=== PATIENT | female | born 1960 | race Asian ===

== ENCOUNTER 2025-03-08 20:08 | Inpatient (IN) | payer MEDICAID ==
[~2025-03-08] VITALS: Ht 160 cm; Wt 61.7 kg
--- NOTE | 2025-03-08 20:28 | ED.PDOC ---
History of Present Illness HPI Comments 64 year old female BIBA and accompanied by presents to the ED with chief complaint of generalized weakness. reports that the patient has been experiencing generalized weakness with associated back pain from a previous herniated disk, left side numbness/weakness, and cough since today. relays that he was worried for a stroke so he called 911 for assistance. Patient denies any N/V/D, dizziness, headache, chest pain, SOB, or tingling. Chief Complaint: General Weakness Time Seen by MD: 20:24 Reviewed Notes: Nurses Notes, Social Media Developer Notes, Medications, Allergies Allergies: Coded Allergies: NO KNOWN ALLERGIES (Unverified , 03/08/25) Information Source: Patient, Emergency Med Personnel, Spouse Mode of Arrival: EMS Severity: Moderate Timing: Hours Duration: Since onset Prehospital treatment: None Past Medical History Past Medical History (Other): Chronic back pain Surgical History: Denies all surgeries CHEMICAL MANAGER History: Denies all CHEMICAL MANAGER Hx Family History Family History: Reviewed,noncontributory to illness Social History Smoker: Non-Smoker Alcohol: Denies ETOH Use Drugs: Denies Drug Use Lives In: Home Constitutional: reports: weakness; denies: chills, diaphoresis, fatigue, fever, malaise, sweats, others EENTM: denies: blurred vision, double vision, ear bleeding, ear discharge, ear drainage, ear pain, ear ringing, eye pain, eye redness, hearing loss, mouth pain, mouth swelling, nasal discharge, nose bleeding, nose congestion, nose pain, photophobia, tearing, throat pain, throat swelling, voice changes, others Respiratory: reports: cough; denies: hemoptysis, orthopnea, SOB at rest, shortness of breath, SOB with excertion, stridor, wheezing, others Cardiovascular: denies: chest pain, dizzy spells, diaphoresis, Dyspnea on exertion, edema, irregular heart beat, left arm pain, lightheadedness, palpitations, PND, syncope, others Gastrointestinal: denies: abdomen distended, abdominal pain, blood streaked bowels, constipated, diarrhea, dysphagia, difficulty swallowing, hematemesis, melena, nausea, poor appetite, poor fluid intake, rectal bleeding, rectal pain, vomiting, others Genitourinary: denies: abnormal vagina bleeding, burning, dyspareunia, dysuria, flank pain, frequency, hematuria, incontinence, pain, , vagina discharge, urgency, others Neurological: reports: left sided weakness; denies: dizziness, fainting, headache, left sided numbness, numbness, paresthesia, pre-existing deficit, right sided numbness, right sided weakness, seizure, speech problems, tingling, tremors, weakness, others Musculoskeletal: reports: back pain; denies: gout, joint pain, joint swelling, muscle pain, muscle stiffness, neck pain, others Integumetry: denies: bruises, change in color, change in hair/nails, dryness, laceration, lesions, lumps, rash, wounds, others Allergic/Immunocompromised: denies: Difficulty Healing, Frequent Infections, Hives, Itching, others Hematologic/Lymphatic: denies: anemia, blood clots, easy bleeding, easy bruising, swollen glands, others Endocrine: denies: excessive hunger, excessive sweating, excessive thirst, excessive urination, flushing, intolerance to cold, intolerance to heat, unexplained weight gain, unexplained weight loss, others Psychiatric: denies: anxiety, bipolar disorder, depression, hopeless, panic disorder, schizophrenia, sleepless, suicidal, others All Other Systems: Reviewed and Negative Physical Exam General Appearance: Moderate Distress, Normal HEENT: Normal ENT Inspection, PERRL/EOMI Neck: Full Range of Motion, Non-Tender, Normal, Normal Inspection Respiratory: Chest Non-Tender, Lungs Clear, No Accessory Muscle Use, No Respiratory Distress, Normal Breath Sounds Cardiovascular: No Edema, No JVD, No Murmur, No Gallop, Normal Peripheral Pulses, Regular Rate/Rhythm Breast Exam: Deferred Gastrointestinal: No Organomegaly, Non Tender, No Pulsatile Mass, Normal Bowel Sounds, Soft Genitalia: Deferred Pelvic: Deferred Rectal: Deferred Extremities: No calf tenderness, Normal capillary refill, Normal inspection, Normal range of motion, Non-tender, No pedal edema Musculoskeletal : Apperance: Normal Neurologic: Alert, administrative services director II-XII nml as Tested, No Motor Deficits, Normal Affect, Normal Mood, No Sensory Deficits Cerebellar Function: Normal Reflexes: Normal Skin: Dry, Normal Color, Warm Lymphatic: No Adenopathy Was a procedure done? Was a procedure done?: No Differential Dx Considerations may include: CT, cancer, GI obstruction, CVA, TIA X-Ray, Labs, Meds, VS Vital Signs Date Time Temp Pulse Resp B/P (MAP) Pulse Ox O2 Delivery O2 Flow Rate FiO2 03/08/25 23:03 75 24 150/87 03/08/25 21:15 98 03/08/25 20:11 98.6 74 16 136/82 (100) 96 98.6 Lab Test 03/08/25 23:25 03/08/25 22:00 03/08/25 21:29 03/08/25 20:36 Range/Units Troponin I High Sensitivity 191 *H 182 *H 202 *H </=34 ng/L POC Glucose 124 H 70-106 mg/dl White Blood Count 10.1 4.4-10.8 10^3/uL Red Blood Count 5.14 4.0-5.20 10^6/uL Hemoglobin 14.9 12.2-16.2 g/dL Hematocrit 44.4 36.0-46.0 % Mean Corpuscular Volume 86.4 80.0-100.0 fL Mean Corpuscular Hemoglobin 28.9 28.0-32.0 pg Mean Corpuscular Hemoglobin Concent 33.5 32.0-36.0 g/dL Red Cell Distribution Width 13.6 11.8-14.3 % Platelet Count 270 140-450 10^3/uL Mean Platelet Volume 6.9 6.9-10.8 fL Neutrophils (%) (Auto) 70.0 37.0-80.0 % Lymphocytes (%) (Auto) 10.8 10.0-50.0 % Monocytes (%) (Auto) 7.1 0.0-12.0 % Eosinophils (%) (Auto) 11.3 H 0.0-7.0 % Basophils (%) (Auto) 0.8 0.0-2.0 % Neutrophils # (Auto) 7.1 1.6-8.6 10 ^3/uL Lymphocytes # (Auto) 1.1 0.4-5.4 10 ^3/uL Monocytes # (Auto) 0.7 0-1.3 10 ^3/uL Eosinophils # (Auto) 1.1 H 0-0.8 10 ^3/uL Basophils # (Auto) 0.1 0-0.2 10 ^3/uL Nucleated Red Blood Cells 0.1 % Sodium Level 136 136-145 mmol/L Potassium Level 3.7 3.5-5.1 mmol/L Chloride Level 99 98-107 mmol/L Carbon Dioxide Level 29 20-31 mmol/L Anion Gap 8 5-15 Blood Urea Nitrogen 6 L 9-23 mg/dL Creatinine 0.49 L 0.550-1.02 mg/dL Glomerular Filtration Rate Calc 106 >90 mL/min BUN/Creatinine Ratio 12.2 10.0-20.0 Serum Glucose 106 74-106 mg/dL Calcium Level 9.7 8.7-10.4 mg/dL Total Bilirubin 1.1 H 0.2-1.0 mg/dL Aspartate Amino Transferase (AST) 96 H 13-40 U/L Alanine Aminotransferase (ALT) 134 H 7-40 U/L Alkaline Phosphatase 415 H 46-116 U/L Total Protein 6.9 5.7-8.2 g/dL Albumin 4.4 3.2-4.8 g/dL Current Medications Medications (Trade) Dose Ordered Sig/Pedro Route Start Time Stop Time Status Last Admin Ondansetron HCl (Zofran) 4 mg ONCE ONCE IV 03/08/25 23:00 03/08/25 23:01 DC 03/08/25 23:04 Morphine Sulfate 4 mg ONCE ONCE IV 03/08/25 23:00 03/08/25 23:01 DC 03/08/25 23:03 X-Ray, Labs, Meds, VS Comment CT abdomen and pelvis: IMPRESSION: 1. Masslike thickening of the mid to lower rectum with numerous perirectal nodules likely primary rectal neoplasm. 2. Hepatic Metastatic disease. 3. Retroperitoneal joana metastatic disease. 4. Innumerable bibasilar pulmonary nodular metastases. 5. Tiny nonobstructing right renal calculus. Explained to patient CT scan through translator/interpreter line. Patient will be admitted for further evaluation. Time of 1ST Reevaluation: 21:24 Reevaluation 1ST: Unchanged Patient Education/Counseling: Diagnosis, Treatment Family Education/Counseling: Diagnosis, Treatment Departure 1 Departure Time of Disposition: 00:57 Impression: Primary Impression: Metastatic neoplasm Disposition: ADMITTED INPATIENT Condition: Stable Discharged With: Self Critical Care Note Critical Care Time?: No Stability Stability form required: No Heart Score Heart Score: Heart Score Response (Comments) Value History N/A 0 EKG N/A 0 Age N/A 0 Risk Factors N/A 0 Troponin N/A 0 Total 0 I personally scribed for CRIS ARANDA ([email or web address]) on 03/08/25 at 20:27. Electronically submitted by Dave Mai ([email or web address]). CRIS ARANDA Mar 08, 2025 20:27
[2025-03-08 20:46] LABS: Basophils # (auto) 0.1 10 ^3/uL (0-0.2); Basophils % (auto) 0.8 % (0.0-2.0); Eosinophils # (auto) 1.1 10 ^3/uL (0-0.8); Eosinophils % (auto) 11.3 % (0.0-7.0); Hematocrit 44.4 % (36.0-46.0); Hemoglobin 14.9 g/dL (12.2-16.2); Lymphocytes # (auto) 1.1 10 ^3/uL (0.4-5.4); Lymphocytes % (auto) 10.8 % (10.0-50.0); Mean Corpuscular Hemoglobin 28.9 pg (28.0-32.0); Mean Corpuscular Hgb Conc. 33.5 g/dL (32.0-36.0); Mean Corpuscular Volume 86.4 fL (80.0-100.0); Monocytes # (auto) 0.7 10 ^3/uL (0-1.3); Monocytes % (auto) 7.1 % (0.0-12.0); Neutrophils # (auto) 7.1 10 ^3/uL (1.6-8.6); Nucleated Red Blood Cells % 0.1 %; Platelet Count (auto) 270 10^3/uL (140-450); Red Blood Cells 5.14 10^6/uL (4.0-5.20); Red Cell Distribution Width 13.6 % (11.8-14.3); White Blood Cell 10.1 10^3/uL (4.4-10.8)
[2025-03-08 21:05] LABS: Albumin 4.4 g/dL (3.2-4.8); Anion Gap 8 (5-15); BUN/Creatinine Ratio 12.2 (10.0-20.0); Calcium 9.7 mg/dL (8.7-10.4); Carbon Dioxide 29 mmol/L (20-31); Chloride 99 mmol/L (98-107); Potassium 3.7 mmol/L (3.5-5.1); Sodium 136 mmol/L (136-145); Total Protein 6.9 g/dL (5.7-8.2)
[2025-03-08 21:06] LABS: Bilirubin, Total 1.1 mg/dL (0.2-1.0)
[2025-03-08 21:07] LABS: Alanine Aminotransferase 134 U/L (7-40); Alkaline Phosphatase 415 U/L (46-116); Aspartate Aminotransferase 96 U/L (13-40); Blood Urea Nitrogen 6 mg/dL (9-23); Glucose 106 mg/dL (74-106)
[2025-03-08 21:52] VITALS: PULSE 90; RESP 90; O2SAT 89
--- NOTE | 2025-03-08 22:31 | DVH ---
CHEST RADIOGRAPH Indication: SOB Technique: Single frontal view of the chest was obtained Comparison: lung windows from prior CT abdominal study of today's date FINDINGS: There is a borderline heart size and ill-defined reticular nodular infiltrates in both lungs which is confirmed by the lung windows from prior abdominal CT study of today's date where there are multiple ill-defined nodules in the lungs. IMPRESSION: 1. Cardiomegaly and multiple ill-defined nodules appear to be nearly evenly distributed in the lungs. Imaging is required I would recommend CT examination of the chest but the findings are clearly seen in the recent abdominal study the lung windows
--- NOTE | 2025-03-08 22:31 | DVH ---
CT HEAD WITHOUT CONTRAST INDICATION: ALOC COMPARISON: None TECHNIQUE: CT of the head without intravenous contrast. RADIATION DOSE: CTDIvol: 7.16 mGy, DLP: 1895.31 mGy*cm FINDINGS: There is no evidence of intracranial hemorrhage, infarct, extra-axial collection, mass effect, midli ne shift, herniation or hydrocephalus. The ventricles, sulci and cisterns are normal. The oconnor-white differentiation is normal. Visualized paranasal sinuses and mastoid air cells are clear. Soft tissues and osseous structures are unremarkable. IMPRESSION: No intracranial abnormality identified.
[2025-03-08] MEDS: MORPHINE SULFATE 4 MG/ML SYR/VIAL IV ONE (23:03)
[2025-03-08] MEDS: ONDANSETRON HCL 4 MG/2 ML VIAL IV ONE (23:04)
--- NOTE | 2025-03-09 00:12 | DVH ---
CLINICAL HISTORY: abd pain TECHNIQUE: CT of the abdomen and pelvis was performed without intravenous contrast. This exam was per formed according to our departmental dose optimization program. Up-to-date CT equipment and radiation dose reduction techniques are utilized as appropriate. CTDI: DLP: 1895. WID: COMPARISON: None FINDINGS: Lower Thorax: Upper limits of normal-sized heart. Innumerable bibasilar pulmonary nodules. Liver and Biliary system: Normal-sized liver. There are multiple hypodense by lateral hepatic lesion s. A reference mass in segment 2/3 of the liver measures 4 cm in conglomerate on series 9, image 24. The gallbladder is normal caliber. There is no biliary ductal dilatation. Spleen: Unremarkable. Adrenal Glands and Kidneys: Normal adrenal glands. There is no hydronephrosis or left nephrolithiasis . Tiny nonobstructing right renal calculus. Pancreas and Retroperitoneum: Mild atrophy of the pancreas. There is retroperitoneal lymphadenopathy. Aorta and Major Vessels: Aortoiliac vessels are normal in caliber with mild calcified atherosclerotic plaque. Bowel, Mesentery and Peritoneal space: There is masslike thickening of the mid to lower rectum with m ultiple perirectal nodules. Perirectal soft tissue stranding. The small and large bowel loops are nor mal in caliber. Normal appendix. There is no free intraperitoneal air or loculated fluid collection. Pelvis: Urinary bladder is mildly distended with mild wall thickening. The uterus and ovaries are pr esent. Abdominal wall and Osseous Structures: Straightening of the lumbar lordosis. No destructive osseous l esion. IMPRESSION: 1. Masslike thickening of the mid to lower rectum with numerous perirectal nodules likely primary rec mirza neoplasm. 2. Hepatic Metastatic disease. 3. Retroperitoneal joana metastatic disease. 4. Innumerable bibasilar pulmonary nodular metastases. 5. Tiny nonobstructing right renal calculus.
[2025-03-09] MEDS: SODIUM CHLORIDE 0.9% 1,000 ML IV ONE (01:09)
[2025-03-09] MEDS: HYDROmorphone HCL 2 MG/ML VL/or syr IV ONE ×2 (01:56→05:47)
[2025-03-09 08:00] VITALS: PULSE 72; RESP 21; O2SAT 98
[2025-03-09 08:11] LABS: Urine Bacteria None Seen /hpf (None Seen)
[2025-03-09 08:25] LABS: Urine Blood Negative /uL (Negative); Urine Clarity Turbid (Clear); Urine Color Yellow (Yellow); Urine Hyaline Cast FEW /lpf (0 - 2); Urine Mucus FEW (None Seen); Urine Protein, UAD TRACE (Negative); Urine Specific Gravity 1.017 (1.001-1.035); Urine Squamous Epithelial Cell None Seen /hpf (<5); Urine Urobilinogen 2 mg/dL (Negative); Urine WBC 2 /HPF (0-5)
[2025-03-09] MEDS: ACETAMINOPHEN 325 MG TAB PO ONE (09:57)
--- NOTE | 2025-03-09 10:55 | DVHHP2 ---
Admitting Diagnosis: Generalized weakness History of Present Illness Patient is a 64-year-old female, BIBA , and with her with a chief complaint of generalized weakness. reports that starting today patient has been experiencing generalized weakness with associated back pain from previous herniated disc, left-sided weakness/numbness, and a cough. states he called 911 for assistance because he was worried for a stroke. Patient denies any tingling, shortness of breath, chest pain, headache, dizziness, N/V/D. While in the emergency department the patient was evaluated by the provider, As per provider: Labs, vital signs, and imagining monitored. Patient will be admitted for further evaluation and treatment. I discussed admission with the patient/family and is in agreement to treatment plan Allergies: Coded Allergies: NO KNOWN ALLERGIES (Unverified , 03/08/25) Current Medications Current Medications Medications (Trade) Dose Ordered Sig/Pedro Route PRN Reason Start Time Stop Time Status Last Admin Sodium Chloride 1,000 ml @ 60 mls/hr [id number] IV 03/09/25 11:00 03/09/25 11:30 Acetaminophen/ Hydrocodone Bitart ([place] 5/325MG Tab) 1 tab Q4HP PRN PO MODERATE PAIN (4-6 PAIN SCALE) 03/09/25 11:00 03/09/25 17:59 Ondansetron HCl (Zofran) 4 mg Q4HP PRN IV NAUSEA / VOMITING 03/09/25 11:00 Morphine Sulfate 2 mg Q4HPRN PRN IV SEVERE PAIN (7-10 PAIN SCALE) 03/09/25 11:00 Pantoprazole Sodium (Protonix) 40 mg DAILY IV 03/10/25 10:00 Diphenhydramine HCl (Benadryl Injection) 25 mg Q4HP PRN IV FOR ITCHING 03/09/25 17:00 03/09/25 17:01 Review of Systems Constitutional: denies chills, denies fever, denies malaise Eyes: denies eye pain, denies vision change ENT: denies ear pain, denies headache, denies nasal congestion, denies painful swallowing, denies voice change Cardiovascular: denies chest pain, denies edema, denies orthopnea, denies palpitations, denies paroxysmal nocturnal dyspnea Respiratory: denies cough, denies shortness of breath Gastrointestinal: denies constipation, denies diarrhea, denies nausea, denies vomiting Genitourinary: denies dysuria, denies frequent urination, denies urethral discharge Musculoskeletal: denies back pain, denies joint pain, denies muscle pain Skin: denies bruising, denies itching, denies rash Neurological: denies focal weakness, denies headache, denies sensory changes Psychiatric: denies anxiety, denies depression Endocrine: denies polydipsia, denies polyuria Hematologic/Lymphatic: denies easy bleeding, denies easy bruising, denies enlarged lymph nodes Allergic/Immunologic: denies allergy, denies hives Vital Signs Vital Signs Date Time Temp Pulse Resp B/P (MAP) Pulse Ox O2 Delivery O2 Flow Rate FiO2 03/09/25 19:44 85 22 97 Nasal Cannula* 2 28 03/09/25 19:44 98.5 117/78 (91) 98.5 Physical Exam General Appearance: alert, no distress HEENT: EOMI, PERRLA, normal external inspect of ears, no icterus, no nasal drainage Neck: no carotid bruit, no jugular venous distention (JVD), no lymphadenopathy Chest: normal thorax Respiratory: clear to auscultation, normal air movement Cardiovascular: regular rate and rhythm, no diastolic murmur, no jugular venous distention (JVD), no rub, no systolic murmur Abdominal: soft, no hepatomegaly, no mass, no splenomegaly, no tenderness Genitourinary: grossly normal external Musculoskeletal: no joint tenderness, no swelling Extremities: normal pulses, no calf tenderness, no clubbing, no cyanosis, no edema Skin: no bruising, no jaundice, no rash Neurological: alert, No focal deficit Results Labs Test 03/09/25 13:03 03/09/25 11:04 03/09/25 08:00 03/08/25 23:25 Range/Units Prothrombin Time 11.4 9.3-11.8 sec Prothrombin Time INR 1.08 0.9-1.15 Activated Partial Thromboplast Time 29.1 24.5-34.5 SEC Carcinoembryonic Antigen 9.04 <=5.0 ng/mL Hepatitis A Antibody Total Positive H Negative Hepatitis B Surface Antigen Negative Negative Hepatitis B Surface Antibody Positive H Negative Hepatitis B Core Total Antibody Negative Negative Hepatitis C Antibody Negative Negative Urine Color Yellow Yellow Urine Clarity Turbid H Clear Urine pH 6.0 5.0-9.0 Urine Specific [place] 1.017 1.001-1.035 Urine Protein Trace H Negative Urine Ketones 3+ H Negative Urine Blood Negative Negative /uL Urine Nitrite Negative Negative Urine Bilirubin Negative Negative Urine Urobilinogen 2 H Negative mg/dL Urine Leukocyte Esterase Negative Negative /uL Urine RBC 5 0 - 4 /hpf Urine Microscopic WBC 2 0-5 /HPF Urine Squamous Epithelial Cells None seen <5 /hpf Urine Bacteria None seen None Seen /hpf Urine Hyaline Casts Few 0 - 2 /lpf Urine Mucus Few None Seen Urine Glucose Normal Normal mg/dL Troponin I High Sensitivity 191 *H </=34 ng/L Test 03/08/25 22:00 03/08/25 20:36 Range/Units POC Glucose 124 H 70-106 mg/dl White Blood Count 10.1 4.4-10.8 10^3/uL Red Blood Count 5.14 4.0-5.20 10^6/uL Hemoglobin 14.9 12.2-16.2 g/dL Hematocrit 44.4 36.0-46.0 % Mean Corpuscular Volume 86.4 80.0-100.0 fL Mean Corpuscular Hemoglobin 28.9 28.0-32.0 pg Mean Corpuscular Hemoglobin Concent 33.5 32.0-36.0 g/dL Red Cell Distribution Width 13.6 11.8-14.3 % Platelet Count 270 140-450 10^3/uL Mean Platelet Volume 6.9 6.9-10.8 fL Neutrophils (%) (Auto) 70.0 37.0-80.0 % Lymphocytes (%) (Auto) 10.8 10.0-50.0 % Monocytes (%) (Auto) 7.1 0.0-12.0 % Eosinophils (%) (Auto) 11.3 H 0.0-7.0 % Basophils (%) (Auto) 0.8 0.0-2.0 % Neutrophils # (Auto) 7.1 1.6-8.6 10 ^3/uL Lymphocytes # (Auto) 1.1 0.4-5.4 10 ^3/uL Monocytes # (Auto) 0.7 0-1.3 10 ^3/uL Eosinophils # (Auto) 1.1 H 0-0.8 10 ^3/uL Basophils # (Auto) 0.1 0-0.2 10 ^3/uL Nucleated Red Blood Cells 0.1 % Sodium Level 136 136-145 mmol/L Potassium Level 3.7 3.5-5.1 mmol/L Chloride Level 99 98-107 mmol/L Carbon Dioxide Level 29 20-31 mmol/L Anion Gap 8 5-15 Blood Urea Nitrogen 6 L 9-23 mg/dL Creatinine 0.49 L 0.550-1.02 mg/dL Glomerular Filtration Rate Calc 106 >90 mL/min BUN/Creatinine Ratio 12.2 10.0-20.0 Serum Glucose 106 74-106 mg/dL Calcium Level 9.7 8.7-10.4 mg/dL Total Bilirubin 1.1 H 0.2-1.0 mg/dL Aspartate Amino Transferase (AST) 96 H 13-40 U/L Alanine Aminotransferase (ALT) 134 H 7-40 U/L Alkaline Phosphatase 415 H 46-116 U/L Total Protein 6.9 5.7-8.2 g/dL Albumin 4.4 3.2-4.8 g/dL Plan 1. Intractable back pain Monitor, as needed pain meds 2. Hepatic metastatic disease Monitor, oncology consult, GI consult 3. Pulmonary Masses Monitor, tumor marker labs 4. Elevated troponin Monitor, cardiology consult, PPI, monitor EKG 5. Elevated liver enzymes Monitor, radiology consult for liver biopsy Plan discussed with: Patient, Other JUDY JACK NP Mar 09, 2025 10:55
[2025-03-09] MEDS: SODIUM CHLORIDE 0.9% 1,000 ML IV SCH (11:30)
--- NOTE | 2025-03-09 11:54 | DVH ---
Procedure: CT CHEST WITHOUT CONTRAST Reason for study/Clinical History: r/o malig Comparison Study: None available at time of dictation. Exam Date: 03/09/2025 11:17 AM TECHNIQUE: Multidetector CT of the chest was performed from the lung apices to the upper abdomen with out the use of intravenous contract. Axial, coronal and sagittal multiplanar reformats were performed . Radiation Dose Information: CT Dose: CTDI volume is 4.56 mGy. Dose-length product is 159.8 mGy*cm The dose indicators for CT are the volume Computed Tomography (CT) Dose Index (CTDIvol) and the Dose Length Product (DLP), and are measured in units of mGy and mGy-cm, respectively. These indicators are not patient dose, but values generated from the CT scanner acquisition factors. The report includes radiation exposure data for exposures received during this examination. FINDINGS: Lower neck: Normal thyroid. Lungs: Numerous nodular densities are seen throughout both lungs suggestive of metastatic disease. Th e largest nodule measures approximately 1.2 cm in the right middle lobe. There is also probable super imposed pneumonia bilaterally. Heart/Vascular Structures: Normal heart size. No pericardial effusion. Lymph Nodes: Mediastinal lymphadenopathy, likely reactive. Pleura: No pleural effusion or significant pneumothorax. Musculoskeletal: No acute osseous abnormality. Soft tissues: Normal. Upper abdomen: Numerous hypodense masses are seen throughout the liver. IMPRESSION: 1. Numerous nodular densities are seen throughout both lungs suggestive of metastatic disease. The la rgest nodule measures approximately 1.2 cm in the right middle lobe. There is also probable superimpo sed pneumonia bilaterally. 2. Mediastinal lymphadenopathy 3. Numerous hypodense masses are also seen throughout the liver Radiation optimization: All CT scans at this facility use at least one of these dose optimization charlee hniques: automated exposure control mA and/or kV adjustment per patient size (includes targeted exam s where dose is matched to clinical indication) or iterative reconstruction.
--- NOTE | 2025-03-09 12:48 | ECG ---
[facility] Test Date: 2025-03-08 Test Time: 21:15:23 Pat Name: SERENE GRIFFIN Department: ED Room: [facility] Gender: F Team Leader/Research Psychologist: ED : 1960 Requested By: CRIS ARANDA Order Number: [id number] Reading MD: Armen Tracey Measurements Intervals [place] Rate: 98 P: 42 NV: 150 QRS: 7 QRSD: 90 T: 10 QT: 364 QTc: 465 Interpretive Statements Sinus rhythm Borderline T abnormalities, anterior leads Electronically Signed On 03-10-2025 20:51:10 PDT by Armen Tracey Please click the below link to view image of tracing.
--- NOTE | 2025-03-09 12:50 | DVHINCON2 ---
GI Consult Consult Note GI consult note Date of Consultation: 03/09/2025 Chief Complaint: Hepatic metastatic disease, new finding Referring Physician: GUERO MARTELL H&P: 64-year-old female with past medical history of chronic back pain presented to ER with generalized weakness. Son at bedside translating Patient has generalized abdominal pain for one month. No nausea or vomiting. But patient had feeling of gas and bloating and felt like of food was not gettin g digest. Patient also has hard stool about 10 times a day, for the last one month also. Patient has noticed red blood with a bowel movement in the last 10 days. No history of melena. No colonoscopy in past Patient has lost 10 lb in two weeks Patient complaining of palpitations. No chest pain Patient complaining of slurry speech after getting pain medications in ER Past Medical History: Chronic back pain Past Surgical History: Denies Social History: NO smoking, drinking ETOH and use of illegal drugs. Family History: Noncontributory Review of Systems: Constitutional: no fever, chill, weight loss HEENT: no eye pain, no hearing loss, no oral lesion, no scleral icterus Heart: no chest pain, no chest pressure Lung: + cough Abdomen: see HPI : no pain with urination, normal appearing urine Musculoskeletal: Back pain Physical exam: General: NAD, AAOX3 Chest: lung walsh clear to auscultation Heart: RRR, no murmur Abdomen: non-distended, mild generalized tenderness to palpation, +BS Labs: Labs Test 03/09/25 11:04 03/09/25 08:00 03/08/25 23:25 03/08/25 22:00 Range/Units Carcinoembryonic Antigen 9.04 <=5.0 ng/mL Urine Color Yellow Yellow Urine Clarity Turbid H Clear Urine pH 6.0 5.0-9.0 Urine Specific [place] 1.017 1.001-1.035 Urine Protein Trace H Negative Urine Ketones 3+ H Negative Urine Blood Negative Negative /uL Urine Nitrite Negative Negative Urine Bilirubin Negative Negative Urine Urobilinogen 2 H Negative mg/dL Urine Leukocyte Esterase Negative Negative /uL Urine RBC 5 0 - 4 /hpf Urine Microscopic WBC 2 0-5 /HPF Urine Squamous Epithelial Cells None seen <5 /hpf Urine Bacteria None seen None Seen /hpf Urine Hyaline Casts Few 0 - 2 /lpf Urine Mucus Few None Seen Urine Glucose Normal Normal mg/dL Troponin I High Sensitivity 191 *H </=34 ng/L POC Glucose 124 H 70-106 mg/dl Test 03/08/25 20:36 Range/Units White Blood Count 10.1 4.4-10.8 10^3/uL Red Blood Count 5.14 4.0-5.20 10^6/uL Hemoglobin 14.9 12.2-16.2 g/dL Hematocrit 44.4 36.0-46.0 % Mean Corpuscular Volume 86.4 80.0-100.0 fL Mean Corpuscular Hemoglobin 28.9 28.0-32.0 pg Mean Corpuscular Hemoglobin Concent 33.5 32.0-36.0 g/dL Red Cell Distribution Width 13.6 11.8-14.3 % Platelet Count 270 140-450 10^3/uL Mean Platelet Volume 6.9 6.9-10.8 fL Neutrophils (%) (Auto) 70.0 37.0-80.0 % Lymphocytes (%) (Auto) 10.8 10.0-50.0 % Monocytes (%) (Auto) 7.1 0.0-12.0 % Eosinophils (%) (Auto) 11.3 H 0.0-7.0 % Basophils (%) (Auto) 0.8 0.0-2.0 % Neutrophils # (Auto) 7.1 1.6-8.6 10 ^3/uL Lymphocytes # (Auto) 1.1 0.4-5.4 10 ^3/uL Monocytes # (Auto) 0.7 0-1.3 10 ^3/uL Eosinophils # (Auto) 1.1 H 0-0.8 10 ^3/uL Basophils # (Auto) 0.1 0-0.2 10 ^3/uL Nucleated Red Blood Cells 0.1 % Sodium Level 136 136-145 mmol/L Potassium Level 3.7 3.5-5.1 mmol/L Chloride Level 99 98-107 mmol/L Carbon Dioxide Level 29 20-31 mmol/L Anion Gap 8 5-15 Blood Urea Nitrogen 6 L 9-23 mg/dL Creatinine 0.49 L 0.550-1.02 mg/dL Glomerular Filtration Rate Calc 106 >90 mL/min BUN/Creatinine Ratio 12.2 10.0-20.0 Serum Glucose 106 74-106 mg/dL Calcium Level 9.7 8.7-10.4 mg/dL Total Bilirubin 1.1 H 0.2-1.0 mg/dL Aspartate Amino Transferase (AST) 96 H 13-40 U/L Alanine Aminotransferase (ALT) 134 H 7-40 U/L Alkaline Phosphatase 415 H 46-116 U/L Total Protein 6.9 5.7-8.2 g/dL Albumin 4.4 3.2-4.8 g/dL Imaging: Abdomen pelvis CT IMPRESSION: 1. Masslike thickening of the mid to lower rectum with numerous perirectal nodules likely primary rectal neoplasm. 2. Hepatic Metastatic disease. 3. Retroperitoneal joana metastatic disease. 4. Innumerable bibasilar pulmonary nodular metastases. 5. Tiny nonobstructing right renal calculus. Assessment: Possible rectal mass Abdominal pain Possible metastatic neoplasm Plan: -discussed with Dr. Leigh CEA, AFP, CA 19-9. Hepatitis tubing oiler labs Full liquid diet Cardiology consult pending Possible plan for sigmoidoscopy on Friday if patient is cleared by Cardiology Plan discussed with patient, at bed and son Thank you for this consult Date of Service: Mar 09, 2025 Billing Provider: AGNIESZKA KUNZ Common Visit Codes: CONSULT ONLY Consultation Codes: [id number] CONSULT <60MIN AGNIESZKA KUNZ Mar 09, 2025 12:50
[2025-03-09 13:35] LABS: INR 1.08 (0.9-1.15); Partial Thromboplastin Time 29.1 SEC (24.5-34.5); Prothrombin Time 11.4 sec (9.3-11.8)
--- NOTE | 2025-03-09 15:32 | DVH ---
INDICATION: EVALUATION OF LIVER MASSES POSSIBLE LIVER BIOPSY TECHNIQUE: Multiple real-time sonographic images of the abdomen were obtained. COMPARISON: None FINDINGS: Heterogeneous echotexture of the liver. Numerous hepatic masses measuring up to 4 cm in th e left hepatic lobe.. The liver measures 14cm. No intrahepatic biliary ductal dilatation is noted. The gallbladder wall measures 0.2 cm and is unremarkable. No gallstones or sludge is seen. The commo n duct measures 0.4 cm and is unremarkable. No pericholecystic fluid is noted. The right kidney measures 10cm. No hydronephrosis. T The pancreas is not well visualized due to obscuration from bowel gas. The visualized portions of the IVC and aorta are grossly unremarkable. IMPRESSION: Numerous hepatic masses measuring up to 4 cm in the left hepatic lobe.
[2025-03-09 16:33] LABS: Hepatitis B Core Total AB Negative (Negative)
[2025-03-09 16:49] LABS: Hepatitis A Total Antibody Positive (Negative); Hepatitis B Surface Antibody Positive (Negative); Hepatitis B Surface Antigen Negative (Negative)
[2025-03-09 16:50] LABS: Hepatitis C Antibody Negative (Negative)
[2025-03-09] MEDS: diphenhdrAMINE HCL 50 MG/1 ML VL IV PRN (17:01)
--- NOTE | 2025-03-09 17:08 | DVHSR ---
APPROVED REPORT EXAM: Two-dimensional and M-mode echocardiogram with Doppler and color Doppler. Blood Pressure: 133/77 mmHg INDICATION Eval RISK FACTORS Height: 5' 6", Weight: 140 DIMENSIONS LVDd4.1 (3.8-5.7cm)LA (2D)3.3 (1.9-4.0cm)Aortic Root3.2 (2.0-3.7cm) LVDs2.3 (2.5-4.0cm)LA (MM) (1.9-4.0cm)Aortic Cusp Exc1.7 (1.5-2.0cm) EF (%) 75.0 (55-70%)Rt. Atrium2.8 (1.9-4.0cm)Asc. Aorta cm IVSd0.9 (0.7-1.1cm)RV (D) (1.8-2.4cm) PWd0.9 (0.7-1.1cm) Mitral Valve MitralMitral Stenosis E wave1.00m/sMV Mean GR.mmHg A wave0.90m/sMV Peak GR.mmHg E/A ratio1.12D MVAcm2 Aortic Valve Aortic ValveAortic Stenosis V11.60m/Burt Mean GR.6mmHg V21.70m/Burt Peak GR.11mmHg LVOT Diameter1.9 (1.8-2.4cm)Doppler AVA2.67cm2 Pulmonic Valve V20.80m/s Tricuspid Valve TR Velocity2.50m/s [id number] Conclusion Left ventricle: Left ventricle is normal-sized. Left ventricular systolic function was hyperdynamic. LVEF was around 75%. There was no gross wall motion abnormality. Right ventricle was normal-sized with normal systolic function. Both atria were normal-sized. Aortic valve was trileaflet. There was no aortic stenosis. There was mild aortic insufficiency. Th ere was trace mitral/tricuspid regurgitation. There was trace/physiologic pulmonary valve insufficie ncy. Right ventricular systolic pressure was assessed at 28 mm Hg (normal). There was no pericardial effu aj.
[2025-03-09] MEDS: HYDROcodone-ACET 5/325MG TAB PO PRN (17:59)
--- NOTE | 2025-03-09 18:28 | DVHINCON2 ---
Date of service: Mar 09, 2025 History of Present Illness HPI Patient is a 64-year-old Bengali female who presented with few weeks of generalized weakness/low back pain and change in bowel habitus. She speaks Bengali. Information was obtained by the help of the son who is at bedside. Since arrival to the hospital, the patient was found to have possible metastatic disease. GI is planning to go proceed with endoscopy and requested for cardiac risk stratification prior to endoscopy. Patient was also found to have minimally elevated/flat troponin. Cardiology was involved for above and cardiac aspects of care. Patient denies any chest pains. For the past few weeks, the patient has been experiencing lower back pain (more than usual), dry cough, generalized weakness and change in bowel habitus. Denies chest pains. Denies loss of consciousness. Denies palpitations. Denies orthopnea. Denies PND. There is some question about some bloody stool in the past 10 days. For the past few days did have some slurred speech also. Denies previous cardiac history. Baseline functional capacity prior to the past few weeks was good. Past Medical History Others Past medical history includes lower back pain, chronic Family History: Cancer Smoker: No Hx (Negative) Alocohol: None Drugs: None Lives with: With family Review of Systems Constitutional: Malaise, Weakness Ears, Nose, & Throat: No symptom reported Pulmonary/Respiratory: Cough (dry) Gastrointestinal: Abdominal Pain All Other Systems Fourteen point review of system was performed. Relevant findings as per above and as per HPI. Otherwise negative. H&P Exam Vital Signs Vital Signs Date Time Temp Pulse Resp B/P (MAP) Pulse Ox O2 Delivery O2 Flow Rate FiO2 03/09/25 17:00 82 28 136/83 (100) 97 03/09/25 11:15 98.9 98.9 03/09/25 08:00 Nasal Cannula* 2 28 General Appeara: Well developed Head Exam: Normal inspection Eye Exam: bilateral eye PERRL Mouth: Normal Inspection Pulmonary/Respiratory: Rhonci Cardiovascular/Chest: Regular rate Peripheral Pulses: 2+ carotid (R), 2+ carotid (L), 2+ femoral (R), 2+ femoral (L), 2+ dorsalis pedis (R), 2+ dorsalis pedis (L), 2+ Radial (R), 2+ Radial (L), 2+ Brachial (R), 2+ Brachial (L) Abdominal Exam: Normal bowel sounds Neuro/Mental St: Alert, Oriented Appearance: Appropriate appearance Eye contact/ Speech: Cooperative Labs/Xrays Labs Test 03/09/25 13:03 03/09/25 11:04 03/09/25 08:00 03/08/25 23:25 Range/Units Prothrombin Time 11.4 9.3-11.8 sec Prothrombin Time INR 1.08 0.9-1.15 Activated Partial Thromboplast Time 29.1 24.5-34.5 SEC Carcinoembryonic Antigen 9.04 <=5.0 ng/mL Hepatitis A Antibody Total Positive H Negative Hepatitis B Surface Antigen Negative Negative Hepatitis B Surface Antibody Positive H Negative Hepatitis B Core Total Antibody Negative Negative Hepatitis C Antibody Negative Negative Urine Color Yellow Yellow Urine Clarity Turbid H Clear Urine pH 6.0 5.0-9.0 Urine Specific [place] 1.017 1.001-1.035 Urine Protein Trace H Negative Urine Ketones 3+ H Negative Urine Blood Negative Negative /uL Urine Nitrite Negative Negative Urine Bilirubin Negative Negative Urine Urobilinogen 2 H Negative mg/dL Urine Leukocyte Esterase Negative Negative /uL Urine RBC 5 0 - 4 /hpf Urine Microscopic WBC 2 0-5 /HPF Urine Squamous Epithelial Cells None seen <5 /hpf Urine Bacteria None seen None Seen /hpf Urine Hyaline Casts Few 0 - 2 /lpf Urine Mucus Few None Seen Urine Glucose Normal Normal mg/dL Troponin I High Sensitivity 191 *H </=34 ng/L Test 03/08/25 22:00 03/08/25 20:36 Range/Units POC Glucose 124 H 70-106 mg/dl White Blood Count 10.1 4.4-10.8 10^3/uL Red Blood Count 5.14 4.0-5.20 10^6/uL Hemoglobin 14.9 12.2-16.2 g/dL Hematocrit 44.4 36.0-46.0 % Mean Corpuscular Volume 86.4 80.0-100.0 fL Mean Corpuscular Hemoglobin 28.9 28.0-32.0 pg Mean Corpuscular Hemoglobin Concent 33.5 32.0-36.0 g/dL Red Cell Distribution Width 13.6 11.8-14.3 % Platelet Count 270 140-450 10^3/uL Mean Platelet Volume 6.9 6.9-10.8 fL Neutrophils (%) (Auto) 70.0 37.0-80.0 % Lymphocytes (%) (Auto) 10.8 10.0-50.0 % Monocytes (%) (Auto) 7.1 0.0-12.0 % Eosinophils (%) (Auto) 11.3 H 0.0-7.0 % Basophils (%) (Auto) 0.8 0.0-2.0 % Neutrophils # (Auto) 7.1 1.6-8.6 10 ^3/uL Lymphocytes # (Auto) 1.1 0.4-5.4 10 ^3/uL Monocytes # (Auto) 0.7 0-1.3 10 ^3/uL Eosinophils # (Auto) 1.1 H 0-0.8 10 ^3/uL Basophils # (Auto) 0.1 0-0.2 10 ^3/uL Nucleated Red Blood Cells 0.1 % Sodium Level 136 136-145 mmol/L Potassium Level 3.7 3.5-5.1 mmol/L Chloride Level 99 98-107 mmol/L Carbon Dioxide Level 29 20-31 mmol/L Anion Gap 8 5-15 Blood Urea Nitrogen 6 L 9-23 mg/dL Creatinine 0.49 L 0.550-1.02 mg/dL Glomerular Filtration Rate Calc 106 >90 mL/min BUN/Creatinine Ratio 12.2 10.0-20.0 Serum Glucose 106 74-106 mg/dL Calcium Level 9.7 8.7-10.4 mg/dL Total Bilirubin 1.1 H 0.2-1.0 mg/dL Aspartate Amino Transferase (AST) 96 H 13-40 U/L Alanine Aminotransferase (ALT) 134 H 7-40 U/L Alkaline Phosphatase 415 H 46-116 U/L Total Protein 6.9 5.7-8.2 g/dL Albumin 4.4 3.2-4.8 g/dL Assessment/Plan Plan Patient is a 64-year-old Bengali female who presented with few weeks of generalized weakness/low back pain and change in bowel habitus. She speaks [place]. Information was obtained by the help of the son who is at bedside. Since arrival to the hospital, the patient was found to have possible metastatic disease. GI is planning to go proceed with endoscopy and requested for cardiac risk stratification prior to endoscopy. Patient was also found to have minimally elevated/flat troponin. Cardiology was involved for above and cardiac aspects of care. Patient denies any chest pains. For the past few weeks, the patient has been experiencing lower back pain (more than usual), dry cough, generalized weakness and change in bowel habitus. Denies chest pains. Denies loss of consciousness. Denies palpitations. Denies orthopnea. Denies PND. There is some question about some bloody stool in the past 10 days. For the past few days did have some slurred speech also. Denies previous cardiac history. Baseline functional capacity prior to the past few weeks was good. Lying flat in bed. Not in acute distress. No JVD. Mucosa is pink and wet. No carotid bruit. No goiter. Scattered rhonchi in the lungs is heard. No crackles. Not using accessory muscles of breathing. Cardiac: Regular, no thrill/gallop. Abdomen is soft. Bowel sound is positive. Mild generalized tenderness is elicited. There is no rebound tenderness. There is no peripheral edema. Dorsalis pedis is 2+ bilateral. Past medical history includes lower back pain, chronic Family history includes several family members with different kind of cancers. Does not smoke cigarettes. No substance abuse. No alcohol abuse. Hemoglobin: 14.9 Creatinine: 0.49 Potassium: 3.7 AST/ALT: 96/134 Troponin (high sensitive): 202 - 182 - 191 Chest x-ray revealed: 1. Cardiomegaly and multiple ill-defined nodules appear to be nearly evenly distributed in the lungs. Imaging is required I would recommend CT examination of the chest but the findings are clearly seen in the recent abdominal study the lung windows CT of the chest revealed: IMPRESSION: 1. Numerous nodular densities are seen throughout both lungs suggestive of metastatic disease. The largest nodule measures approximately 1.2 cm in the right middle lobe. There is also probable superimposed pneumonia bilaterally. 2. Mediastinal lymphadenopathy 3. Numerous hypodense masses are also seen throughout the liver CT of the abdomen and pelvis revealed: IMPRESSION: 1. Masslike thickening of the mid to lower rectum with numerous perirectal nodules likely primary rectal neoplasm. 2. Hepatic Metastatic disease. 3. Retroperitoneal joana metastatic disease. 4. Innumerable bibasilar pulmonary nodular metastases. 5. Tiny nonobstructing right renal calculus. CT of the head revealed: IMPRESSION: No intracranial abnormality identified. Liver ultrasound revealed: IMPRESSION: Numerous hepatic masses measuring up to 4 cm in the left hepatic lobe. EKG revealed sinus rhythm with nonspecific T-wave changes Tele reveals sinus rhythm Echocardiogram reported: Left ventricle: Left ventricle is normal-sized. Left ventricular systolic function was hyperdynamic. LVEF was around 75%. There was no gross wall motion abnormality. Right ventricle was normal-sized with normal systolic function. Both atria were normal-sized. Aortic valve was trileaflet. There was no aortic stenosis. There was mild aortic insufficiency. There was trace mitral/tricuspid regurgitation. There was trace/physiologic pulmonary valve insufficiency. Right ventricular systolic pressure was assessed at 28 mm Hg (normal). There was no pericardial effusion. Patient is a 64-year-old female who presented with generalized weakness, low back pain, nonproductive cough and reported slurred speech. Patient is found to have rectal mass in the imaging with findings in favor of metastatic cancer in liver/lungs. There is question about bloody stool in the past 10 days. Patient has been seen by GI and is planning for endoscopy. No previous cardiac history. Baseline functional capacity up to few weeks back was acceptable and normal. He is found to have minimally elevated/flat troponin. Presentation is not considered acute coronary syndrome. The mild increase in troponin most likely reflects demand physiology at this point. Recognizing the presentation and comorbidities, ischemic workup is not indicated presently. Metastatic disease Low back pain Rectal mass Liver/lung metastases Abnormal troponin Cardiac suggestion for management: Manage on telemetry Follow-up electrolytes and kidney function tests and correct abnormalities. Keep potassium above 4 and magnesium above 2 Recognizing the presentation and comorbidities, ischemic workup is not indicated presently. Cardiac-montelongo, the patient is considered low risk patient for low risk endoscopy/colonoscopy procedures. Cardiac-montelongo, you can proceed with the procedures under appropriate intra and postoperative hemodynamic monitoring. Avoid hypotension Evaluation and management of reported slurred speech as per primary team. Consider Neurology evaluation Evaluation and management of metastatic disease as per primary team/GI/Oncology Further evaluation and management depends on the above and clinical course Thank you for consultation A total of 75 minutes was spent reviewing the patient record, examining the patient, making a diagnostic and therapeutic plan, discussing this plan with medical personnel, following up on diagnostic studies and following the patient for clinical stability excluding any and all procedures. At least 50% of this time was spent in direct, [id number] contact. Thank you for allowing me to participate in this patient's care. Further recommendations will depend on patient's clinical course. Please do not hesitate to contact me if you have any questions or concerns. This medical document was created using electronic medical record system with [employer] computerized dictation system. Although this document has been carefully reviewed, there may still be some phonetic and typographical errors. These a reas are purely typographical due to the imperfection of the software programs, and do not reflect any compromise in the patient's medical care. Plan discussed with: Patient, Son (at bedside), Other (nurse) FARIDA MOTT MD Mar 09, 2025 18:28
[2025-03-09 19:44] VITALS: PULSE 85; RESP 22; O2SAT 97
[2025-03-09 23:54] VITALS: BP 140/82; PULSE 83; RESP 18; TEMP 98.6; O2SAT 96
[2025-03-10] VITALS (8 sets, daily range): BP systolic 119–152; BP diastolic 73–83; PULSE 61–95; RESP 16–18; TEMP 97.6–98.6; O2SAT 95–100
--- NOTE | 2025-03-10 07:02 | DVHPN2 ---
Progress Note - Dictate Date Seen: Mar 10, 2025 Medical Necessity Reason Pt with a Central, PICC or Fol: No vital signs Vital Sign Date Time Temp Pulse Resp B/P (MAP) Pulse Ox O2 Delivery O2 Flow Rate FiO2 03/10/25 05:00 98.2 80 18 127/76 (93) 96 98.2 03/09/25 23:54 Nasal Cannula* 2 28 Total Intake and Output 03/09/25 03/09/25 03/10/25 15:00 23:00 07:00 Intake Total 180 ml 240 ml 200 ml Output Total 450 ml 450 ml Balance -270 ml -210 ml 200 ml medications Current Medications Medications Dose Ordered Sig/Pedro Route Start Time Stop Time Status Last Admin Dose Admin Sodium Chloride 1,000 ml @ 60 mls/hr [id number] IV 03/09/25 11:00 03/10/25 05:21 60 MLS/HR Acetaminophen/ Hydrocodone Bitart 1 tab Q4HP PRN PO 03/09/25 11:00 03/10/25 01:44 1 TAB Ondansetron HCl 4 mg Q4HP PRN IV 03/09/25 11:00 Morphine Sulfate 2 mg Q4HPRN PRN IV 03/09/25 11:00 Pantoprazole Sodium 40 mg DAILY IV 03/10/25 10:00 Diphenhydramine HCl 25 mg Q4HP PRN IV 03/09/25 17:00 03/09/25 17:01 25 MG laboratory and microbiology Test 03/10/25 06:28 Range/Units Serum Glucose Pending Assessment/Plan Patient is a 64-year-old [place] female who presented with few weeks of generalized weakness/low back pain and change in bowel habitus. She speaks Luxembourgish. Information was obtained by the help of the son who is at bedside. Since arrival to the hospital, the patient was found to have possible metastatic disease. GI is planning to go proceed with endoscopy and requested for cardiac risk stratification prior to endoscopy. Patient was also found to have minimally elevated/flat troponin. Cardiology was involved for above and cardiac aspects of care. Patient denies any chest pains. For the past few weeks, the patient has been experiencing lower back pain (more than usual), dry cough, generalized weakness and change in bowel habitus. Denies chest pains. Denies loss of consciousness. Denies palpitations. Denies orthopnea. Denies PND. There is some question about some bloody stool in the past 10 days. For the past few days did have some slurred speech also. Denies previous cardiac history. Baseline functional capacity prior to the past few weeks was good. Lying flat in bed. Not in acute distress. No JVD. Mucosa is pink and wet. No carotid bruit. No goiter. Scattered rhonchi in the lungs is heard. No crackles. Not using accessory muscles of breathing. Cardiac: Regular, no thrill/gallop. Abdomen is soft. Bowel sound is positive. Mild generalized tenderness is elicited. There is no rebound tenderness. There is no peripheral edema. Dorsalis pedis is 2+ bilateral. Past medical history includes lower back pain, chronic Family history includes several family members with different kind of cancers. Does not smoke cigarettes. No substance abuse. No alcohol abuse. Hemoglobin: 14.9 - 13.1 Creatinine: 0.49 - 0.44 Potassium: 3.7 - 3.7 AST/ALT: 96/134 - 57/92 Troponin (high sensitive): 202 - 182 - 191 Chest x-ray revealed: 1. Cardiomegaly and multiple ill-defined nodules appear to be nearly evenly distributed in the lungs. Imaging is required I would recommend CT examination of the chest but the findings are clearly seen in the recent abdominal study the lung windows CT of the chest revealed: IMPRESSION: 1. Numerous nodular densities are seen throughout both lungs suggestive of metastatic disease. The largest nodule measures approximately 1.2 cm in the right middle lobe. There is also probable superimposed pneumonia bilaterally. 2. Mediastinal lymphadenopathy 3. Numerous hypodense masses are also seen throughout the liver CT of the abdomen and pelvis revealed: IMPRESSION: 1. Masslike thickening of the mid to lower rectum with numerous perirectal nodules likely primary rectal neoplasm. 2. Hepatic Metastatic disease. 3. Retroperitoneal joana metastatic disease. 4. Innumerable bibasilar pulmonary nodular metastases. 5. Tiny nonobstructing right renal calculus. CT of the head revealed: IMPRESSION: No intracranial abnormality identified. Liver ultrasound revealed: IMPRESSION: Numerous hepatic masses measuring up to 4 cm in the left hepatic lobe. EKG revealed sinus rhythm with nonspecific T-wave changes Tele reveals sinus rhythm Echocardiogram reported: Left ventricle: Left ventricle is normal-sized. Left ventricular systolic function was hyperdynamic. LVEF was around 75%. There was no gross wall motion abnormality. Right ventricle was normal-sized with normal systolic function. Both atria were normal-sized. Aortic valve was trileaflet. There was no aortic stenosis. There was mild aortic insufficiency. There was trace mitral/tricuspid regurgitation. There was trace/physiologic pulmonary valve insufficiency. Right ventricular systolic pressure was assessed at 28 mm Hg (normal). There was no pericardial effusion. Patient is a 64-year-old female who presented with generalized weakness, low back pain, nonproductive cough and reported slurred speech. Patient is found to have rectal mass in the imaging with findings in favor of metastatic cancer in liver/lungs. There is question about bloody stool in the past 10 days. Patient has been seen by GI and is planning for endoscopy. No previous cardiac history. Baseline functional capacity up to few weeks back was acceptable and normal. He is found to have minimally elevated/flat troponin. Presentation is not considered acute coronary syndrome. The mild increase in troponin most likely reflects demand physiology at this point. Recognizing the presentation and comorbidities, ischemic workup is not indicated presently. Metastatic disease Low back pain Rectal mass Liver/lung metastases Abnormal troponin Cardiac suggestion for management: Manage on telemetry Follow-up electrolytes and kidney function tests and correct abnormalities. Keep potassium above 4 and magnesium above 2 Recognizing the presentation and comorbidities, ischemic workup is not indicated presently. Cardiac-montelongo, the patient is considered low risk patient for low risk sigmoidoscopy/endoscopy/colonoscopy/needle biopsy procedures. Cardiac-montelongo, you can proceed with the procedures under appropriate intra and postoperative hemodynamic monitoring. Avoid hypotension Evaluation and management of reported slurred speech as per primary team. Consider Neurology evaluation Evaluation and management of metastatic disease as per primary team/GI/Oncology Further evaluation and management depends on the above and clinical course A total of 55 minutes was spent reviewing the patient record, examining the patient, making a diagnostic and therapeutic plan, discussing this plan with medical personnel, following up on diagnostic studies and following the patient for clinical stability excluding any and all procedures. At least 50% of this time was spent in direct, [id number] contact. Thank you for allowing me to participate in this patient's care. Further recommendations will depend on patient's clinical course. Please do not hesitate to contact me if you have any questions or concerns. This medical document was created using electronic medical record system with [employer] dictation system. Although this document has been carefully reviewed, there may still be some phonetic and typographical errors. These areas are purely typographical due to the imperfection of the software programs, and do not reflect any compromise in the patient's medical care. Plan discussed with: Other (nurse) FARIDA MOTT MD Mar 10, 2025 07:02
[2025-03-10 07:04] LABS: Basophils # (auto) 0.1 10 ^3/uL (0-0.2); Basophils % (auto) 0.8 % (0.0-2.0); Eosinophils % (auto) 10.5 % (0.0-7.0); Hematocrit 38.8 % (36.0-46.0); Hemoglobin 13.1 g/dL (12.2-16.2); Lymphocytes # (auto) 0.9 10 ^3/uL (0.4-5.4); Lymphocytes % (auto) 9.4 % (10.0-50.0); Mean Corpuscular Hemoglobin 29.1 pg (28.0-32.0); Mean Corpuscular Hgb Conc. 33.6 g/dL (32.0-36.0); Mean Corpuscular Volume 86.5 fL (80.0-100.0); Monocytes # (auto) 0.6 10 ^3/uL (0-1.3); Monocytes % (auto) 6.1 % (0.0-12.0); Neutrophils # (auto) 7.2 10 ^3/uL (1.6-8.6); Neutrophils % (auto) 73.2 % (37.0-80.0); Platelet Count (auto) 212 10^3/uL (140-450); Red Blood Cells 4.49 10^6/uL (4.0-5.20); Red Cell Distribution Width 13.3 % (11.8-14.3); White Blood Cell 9.8 10^3/uL (4.4-10.8)
[2025-03-10 07:19] LABS: Albumin 3.5 g/dL (3.2-4.8); Anion Gap 10 (5-15); BUN/Creatinine Ratio 13.6 (10.0-20.0); Calcium 9.2 mg/dL (8.7-10.4); Carbon Dioxide 26 mmol/L (20-31); Chloride 101 mmol/L (98-107); Glucose 79 mg/dL (74-106); Potassium 3.7 mmol/L (3.5-5.1); Sodium 137 mmol/L (136-145); Total Protein 5.9 g/dL (5.7-8.2)
[2025-03-10 07:21] LABS: Bilirubin, Total 0.9 mg/dL (0.2-1.0)
[2025-03-10 07:23] LABS: Alanine Aminotransferase 92 U/L (7-40); Alkaline Phosphatase 372 U/L (46-116); Aspartate Aminotransferase 57 U/L (13-40); Blood Urea Nitrogen 6 mg/dL (9-23)
[2025-03-10 08:07] LABS: AFP Serum Tumor Marker 5.6 ng/mL (0.0-9.2)
[2025-03-10] MEDS: GELATIN 1 SPONGE SIZE 50 TOP ONE (08:34)
[2025-03-10] MEDS: IBUPROFEN 400 MG TAB PO ONE (08:36)
--- NOTE | 2025-03-10 10:16 | DVH ---
US US GUIDANCE FOR NEEDLE PLACEME, HISTORY: LIVER MASS BIOPSY PROCEDURE: Informed consent was obtained. The patient was placed supine on the gurney, and limited US was performed of the liver. The skin over the area of interest was prepped with chlorhexidine which was allowed to dry and draped in the usual sterile fashion. Time out was performed. 1% local lidocain e was administered. With intermittent US guidance, Temno 17 gauge outer coaxial guiding needle was ad vanced into the mass. Multiple biopsies were obtained using Temno 18 gauge inner core biopsy needle. The specimens were placed in formalin and sent to pathology for analysis. The needle was withdrawn , and the visceral tract embolized with gelfoam pledgets. Post procedural images were obtained. No imme diate complication was identified. FINDINGS: Mass in the right liver lobe. Intra-procedural images demonstrate biopsy needle within segm ent the margin of targeted lesion. Post procedural images do not demonstrate any significant hemorrha ge. IMPRESSION: US guided right liver mass biopsy. Pathology results pending. Right side down on rolled towel for 1 hour. Supine bedrest 3 hours total.
[2025-03-10] MEDS: PANTOPRAZOLE 40 MG/10 ML VIAL INJ IV SCH (10:25)
--- NOTE | 2025-03-10 14:55 | DVHPN2 ---
Progress Note - Dictate Date Seen: Mar 11, 2025 Medical Necessity Reason Pt with a Central, PICC or Fol: No vital signs Vital Sign Date Time Temp Pulse Resp B/P (MAP) Pulse Ox O2 Delivery O2 Flow Rate FiO2 03/10/25 08:55 98.6 61 18 145/80 (101) 100 98.6 03/09/25 23:54 Nasal Cannula* 2 28 Total Intake and Output 03/09/25 03/09/25 03/10/25 15:00 23:00 07:00 Intake Total 180 ml 240 ml 200 ml Output Total 450 ml 450 ml Balance -270 ml -210 ml 200 ml medications Current Medications Medications Dose Ordered Sig/Pedro Route Start Time Stop Time Status Last Admin Dose Admin Sodium Chloride 1,000 ml @ 60 mls/hr [id number] IV 03/09/25 11:00 03/10/25 05:21 60 MLS/HR Acetaminophen/ Hydrocodone Bitart 1 tab Q4HP PRN PO 03/09/25 11:00 03/10/25 01:44 1 TAB Ondansetron HCl 4 mg Q4HP PRN IV 03/09/25 11:00 Morphine Sulfate 2 mg Q4HPRN PRN IV 03/09/25 11:00 Pantoprazole Sodium 40 mg DAILY IV 03/10/25 10:00 03/10/25 10:25 40 MG Diphenhydramine HCl 25 mg Q4HP PRN IV 03/09/25 17:00 03/09/25 17:01 25 MG objective General Appearance: alert, no distress HEENT: EOMI, PERRLA, normal external inspect of ears, no icterus, no nasal drainage Neck: no carotid bruit, no jugular venous distention (JVD), no lymphadenopathy Chest: normal thorax Respiratory: clear to auscultation, normal air movement Cardiovascular: regular rate and rhythm, no diastolic murmur, no jugular venous distention (JVD), no rub, no systolic murmur Abdominal: soft, no hepatomegaly, no mass, no splenomegaly, no tenderness Genitourinary: grossly normal external Musculoskeletal: no joint tenderness, no swelling Extremities: normal pulses, no calf tenderness, no clubbing, no cyanosis, no edema Skin: no bruising, no jaundice, no rash Neurological: alert, No focal deficit laboratory and microbiology Laboratory Tests 03/10/25 06:28 Test 03/10/25 06:28 Range/Units Serum Glucose 79 74-106 mg/dL Problem List 1. Intractable back pain Monitor, as needed pain meds 2. Hepatic metastatic disease Monitor, oncology consult, GI consult 3. Pulmonary Masses Monitor, tumor marker labs 4. Elevated troponin Monitor, cardiology consult, PPI, monitor EKG 5. Elevated liver enzymes Monitor, radiology consult for liver biopsy Assessment/Plan Subjective Patient is awake and alert. Objective Patient is French. I spoke with patients , who uses the telephone as a family day care worker. I also discussed plan of care with patient and spoke with patients son who translated over the phone. Patient was admitted for abdominal pain. CT imaging showed liver metastasis. Bone scan was done, results are pending. Patient is scheduled for colonoscopy tomorrow. Liver biopsy is pending. Plan Continue current treatment. Discussed plan of care yesterday with oncology, Dr. Garsia, who stated she will follow up with patient outpatient. Tumor marker labs are elevated. Plan discussed with: Patient, Other JUDY JACK NP Mar 10, 2025 14:55
--- NOTE | 2025-03-10 15:01 | DVHPN2 ---
Subjective Status post liver biopsy Still having slight slurred speech Changes from previous H/P or p: No Changes Objective Vitals Vital Signs Date Time Temp Pulse Resp B/P (MAP) Pulse Ox O2 Delivery O2 Flow Rate FiO2 03/10/25 08:55 98.6 61 18 145/80 (101) 100 98.6 03/09/25 23:54 Nasal Cannula* 2 28 Intake/Output Intake and Output 03/10/25 07:00 Intake Total 620 ml Output Total 900 ml Balance -280 ml Intake Oral 200 ml IV Total 420 ml Output Urine Total 900 ml # Voids 2 General Appearance: Alert, Oriented X3, No acute distress Lungs: Clear to auscultation, Normal air movement, Other Cardiovascular: Regular rate, Normal S1, Normal S2, No murmurs, Gallops, Rubs, Other Abdomen: Normal bowel sounds, Soft, No tenderness, No hepatospenomegaly, No masses, Other Medications Current Medications Medications Dose Ordered Sig/Pedro Route Start Time Stop Time Status Last Admin Dose Admin Sodium Chloride 1,000 ml @ 60 mls/hr [id number] IV 03/09/25 11:00 03/10/25 05:21 60 MLS/HR Acetaminophen/ Hydrocodone Bitart 1 tab Q4HP PRN PO 03/09/25 11:00 03/10/25 01:44 1 TAB Ondansetron HCl 4 mg Q4HP PRN IV 03/09/25 11:00 Morphine Sulfate 2 mg Q4HPRN PRN IV 03/09/25 11:00 Pantoprazole Sodium 40 mg DAILY IV 03/10/25 10:00 03/10/25 10:25 40 MG Diphenhydramine HCl 25 mg Q4HP PRN IV 03/09/25 17:00 03/09/25 17:01 25 MG Laboratory Results Laboratory Tests 03/10/25 06:28 Chemistry Test 03/10/25 06:28 Albumin 3.5 g/dL (3.2-4.8) Calcium Level 9.2 mg/dL (8.7-10.4) Total Protein 5.9 g/dL (5.7-8.2) LFT Test 03/10/25 06:28 Alanine Aminotransferase (ALT) 92 U/L (7-40) H Alkaline Phosphatase 372 U/L (46-116) H Aspartate Amino Transferase (AST) 57 U/L (13-40) H Total Bilirubin 0.9 mg/dL (0.2-1.0) Urinalysis Test 03/09/25 08:00 Urine Color Yellow (Yellow) Urine Clarity Turbid (Clear) H Urine pH 6.0 (5.0-9.0) Urine Specific Benjamin 1.017 (1.001-1.035) Urine Protein Trace (Negative) H Urine Ketones 3+ (Negative) H Urine Blood Negative /uL (Negative) Urine Nitrite Negative (Negative) Urine Bilirubin Negative (Negative) Urine Urobilinogen 2 mg/dL (Negative) H Urine Leukocyte Esterase Negative /uL (Negative) Urine RBC 5 /hpf (0 - 4) Urine Microscopic WBC 2 /HPF (0-5) Urine Squamous Epithelial Cells None seen /hpf (<5) Urine Bacteria None seen /hpf (None Seen) Urine Hyaline Casts Few /lpf (0 - 2) Urine Mucus Few (None Seen) Urine Glucose Normal mg/dL (Normal) Labs and/or images reviewed: Labs reviewed by me, Image(s) reviewed by me Assessment/Plan Assessment/Plan Possible rectal mass Abdominal pain Possible metastatic neoplasm Plan: Discussed with Dr. Leigh Patient has been cleared from cardiac point of view by Dr. Walker for GI procedures Schedule for sigmoidoscopy with biopsy 03/11/2025 discussed risks benefits and alternatives of procedure and sedation patient understands and agrees Plan discussed with: Spouse My Orders Orders - AGNIESZKA KUNZ Procedure Category Date Status Time Clear Liq Diet DIET 03/10/25 Transmitted Dinner Npo After Midnight ORDERS 03/10/25 Transmitted Obtain Consent For: ORDERS 03/10/25 Transmitted 14:54 Obtain Consent For BRENDA 03/10/25 In Process Anesthesia 14:54 Fleet Enema Adult PHA 03/11/25 Logged 05:00 Date of Service: Mar 10, 2025 Billing Provider: AGNIESZKA KUNZ Common Visit Codes: 71994-TJEIBIOCYY INP/OBS CARE(HIGH) AGNIESZKA KUNZ Mar 10, 2025 15:01
[2025-03-10] MEDS: IBUPROFEN 600 MG TAB PO PRN (16:49)
[2025-03-11] VITALS (7 sets, daily range): BP systolic 118–147; BP diastolic 66–86; PULSE 61–102; RESP 17–18; TEMP 97.7–98.6; O2SAT 94–100
[2025-03-11] MEDS: ACETAMINOPHEN 325 MG TAB PO PRN (03:46)
[2025-03-11] MEDS: FLEET ENEMA(ADULT) 135 ML PR ONE (05:42)
--- NOTE | 2025-03-11 06:46 | DVHPN2 ---
Progress Note - Dictate Date Seen: Mar 11, 2025 Medical Necessity Reason Pt with a Central, PICC or Fol: No vital signs Vital Sign Date Time Temp Pulse Resp B/P (MAP) Pulse Ox O2 Delivery O2 Flow Rate FiO2 03/11/25 05:00 97.8 102 17 138/83 (101) 95 97.8 03/10/25 20:00 Nasal Cannula* 2 28 Total Intake and Output 03/10/25 03/10/25 03/11/25 15:00 23:00 07:00 Intake Total 118 ml 450 ml 900 ml Output Total 600 ml Balance 118 ml 450 ml 300 ml medications Current Medications Medications Dose Ordered Sig/Pedro Route Start Time Stop Time Status Last Admin Dose Admin Sodium Chloride 1,000 ml @ 60 mls/hr [id number] IV 03/09/25 11:00 03/10/25 05:21 60 MLS/HR Acetaminophen/ Hydrocodone Bitart 1 tab Q4HP PRN PO 03/09/25 11:00 Hold 03/10/25 01:44 1 TAB Ondansetron HCl 4 mg Q4HP PRN IV 03/09/25 11:00 Morphine Sulfate 2 mg Q4HPRN PRN IV 03/09/25 11:00 Pantoprazole Sodium 40 mg DAILY IV 03/10/25 10:00 03/10/25 10:25 40 MG Diphenhydramine HCl 25 mg Q4HP PRN IV 03/09/25 17:00 03/09/25 17:01 25 MG Acetaminophen 650 mg Q4HP PRN PO 03/10/25 17:15 03/11/25 03:46 650 MG laboratory and microbiology Laboratory Tests 03/10/25 06:28 Test 03/10/25 06:28 Range/Units Serum Glucose 79 74-106 mg/dL Assessment/Plan Patient is a 64-year-old Serbian female who presented with few weeks of generalized weakness/low back pain and change in bowel habitus. She speaks Serbian. Information was obtained by the help of the son who is at bedside. Since arrival to the hospital, the patient was found to have possible metastatic disease. GI is planning to go proceed with endoscopy and requested for cardiac risk stratification prior to endoscopy. Patient was also found to have minimally elevated/flat troponin. Cardiology was involved for above and cardiac aspects of care. Patient denies any chest pains. For the past few weeks, the patient has been experiencing lower back pain (more than usual), dry cough, generalized weakness and change in bowel habitus. Denies chest pains. Denies loss of consciousness. Denies palpitations. Denies orthopnea. Denies PND. There is some question about some bloody stool in the past 10 days. For the past few days did have some slurred speech also. Denies previous cardiac history. Baseline functional capacity prior to the past few weeks was good. Lying flat in bed. Not in acute distress. No JVD. Mucosa is pink and wet. No carotid bruit. No goiter. Scattered rhonchi in the lungs is heard. No crackles. Not using accessory muscles of breathing. Cardiac: Regular, no thrill/gallop. Abdomen is soft. Bowel sound is positive. Mild generalized tenderness is elicited. There is no rebound tenderness. There is no peripheral edema. Dorsalis pedis is 2+ bilateral. Past medical history includes lower back pain, chronic Family history includes several family members with different kind of cancers. Does not smoke cigarettes. No substance abuse. No alcohol abuse. Hemoglobin: 14.9 - 13.1 Creatinine: 0.49 - 0.44 Potassium: 3.7 - 3.7 AST/ALT: 96/134 - 57/92 Troponin (high sensitive): 202 - 182 - 191 Chest x-ray revealed: 1. Cardiomegaly and multiple ill-defined nodules appear to be nearly evenly distributed in the lungs. Imaging is required I would recommend CT examination of the chest but the findings are clearly seen in the recent abdominal study the lung windows CT of the chest revealed: IMPRESSION: 1. Numerous nodular densities are seen throughout both lungs suggestive of metastatic disease. The largest nodule measures approximately 1.2 cm in the right middle lobe. There is also probable superimposed pneumonia bilaterally. 2. Mediastinal lymphadenopathy 3. Numerous hypodense masses are also seen throughout the liver CT of the abdomen and pelvis revealed: IMPRESSION: 1. Masslike thickening of the mid to lower rectum with numerous perirectal nodules likely primary rectal neoplasm. 2. Hepatic Metastatic disease. 3. Retroperitoneal joana metastatic disease. 4. Innumerable bibasilar pulmonary nodular metastases. 5. Tiny nonobstructing right renal calculus. CT of the head revealed: IMPRESSION: No intracranial abnormality identified. Liver ultrasound revealed: IMPRESSION: Numerous hepatic masses measuring up to 4 cm in the left hepatic lobe. EKG revealed sinus rhythm with nonspecific T-wave changes Tele reveals sinus rhythm Echocardiogram reported: Left ventricle: Left ventricle is normal-sized. Left ventricular systolic function was hyperdynamic. LVEF was around 75%. There was no gross wall motion abnormality. Right ventricle was normal-sized with normal systolic function. Both atria were normal-sized. Aortic valve was trileaflet. There was no aortic stenosis. There was mild aortic insufficiency. There was trace mitral/tricuspid regurgitation. There was trace/physiologic pulmonary valve insufficiency. Right ventricular systolic pressure was assessed at 28 mm Hg (normal). There was no pericardial effusion. Patient is a 64-year-old female who presented with generalized weakness, low back pain, nonproductive cough and reported slurred speech. Patient is found to have rectal mass in the imaging with findings in favor of metastatic cancer in liver/lungs. There is question about bloody stool in the past 10 days. Patient has been seen by GI and is planning for endoscopy. No previous cardiac history. Baseline functional capacity up to few weeks back was acceptable and normal. He is found to have minimally elevated/flat troponin. Presentation is not considered acute coronary syndrome. The mild increase in troponin most likely reflects demand physiology at this point. Recognizing the presentation and comorbidities, ischemic workup is not indicated presently. Metastatic disease Low back pain Rectal mass Liver/lung metastases Abnormal troponin s/p liver biopsy Cardiac suggestion for management: Manage on telemetry Follow-up electrolytes and kidney function tests and correct abnormalities. Keep potassium above 4 and magnesium above 2 Recognizing the presentation and comorbidities, ischemic workup is not indicated presently. Cardiac-montelongo, the patient is considered low risk patient for low risk sigmoidoscopy/endoscopy/colonoscopy/needle biopsy procedures. Cardiac-montelongo, you can proceed with the procedures under appropriate intra and postoperative hemodynamic monitoring. Avoid hypotension Evaluation and management of reported slurred speech as per primary team. Consider Neurology evaluation Evaluation and management of metastatic disease as per primary team/GI/Oncology Further evaluation and management depends on the above and clinical course A total of 55 minutes was spent reviewing the patient record, examining the patient, making a diagnostic and therapeutic plan, discussing this plan with medical personnel, following up on diagnostic studies and following the patient for clinical stability excluding any and all procedures. At least 50% of this time was spent in direct, [id number] contact. Thank you for allowing me to participate in this patient's care. Further recommendations will depend on patient's clinical course. Please do not hesitate to contact me if you have any questions or concerns. This medical document was created using electronic medical record system with [employer] computerized dictation system. Although this document has been carefully reviewed, there may still be some phonetic and typographical errors. These areas are purely typographical due to the imperfection of the software programs, and do not reflect any compromise in the patient's medical care. Plan discussed with: Other (nurse) FARIDA MOTT MD Mar 11, 2025 06:46
[2025-03-11] MEDS ORDERED: SIMETHICONE 40 MG/0.6 ML ORAL DROP ONE (08:18)
[2025-03-11] MEDS ORDERED: diphenhdrAMINE HCL 50 MG/1 ML VL ONE (08:19)
[2025-03-11] MEDS ORDERED: fentaNYL CITRATE 100 MCG/2 ML VL ONE (08:19)
[2025-03-11] MEDS ORDERED: MIDAZOLAM HCL 5 MG/ML-1ML VIAL ONE (08:19)
[2025-03-11] MEDS ORDERED: SODIUM CHLORIDE LOCK 10 ML ONE (08:19)
--- NOTE | 2025-03-11 10:58 | DVH ---
Procedure: NM BONE WHOLE BODY Exam Date: 03/11/2025 09:41 AM Reason for study/Clinical History: r/o bone mets Comparison Study: None available at time of dictation. Prior correlative imaging: CT dated 03/08/2025 and 03/09/2025 Nuclear Medicine Whole Body Bone Scan Technique: Following the intravenous administration of 26 millicuries of technetium 99m labeled MDP, whole body images in the anterior and posterior projections were obtained 3 hours following the administration o f radiopharmaceutical. Findings: There is mild symmetric multifocal activity overlying both shoulders consistent with mild degenerativ e change. The expected mild activity is noted overlying both kidneys and the bladder without evidence of obstru ction. Impression: There is no evidence of focal increased uptake consistent with bony metastatic disease. Mild multifocal activity consistent with degenerative changes as described above.
[2025-03-11] MEDS ORDERED: PROPOFOL 10 MG/ML 20 ML IV ONE (15:51)
[2025-03-11] MEDS: ONDANSETRON HCL 4 MG/2 ML VIAL IV ONE (16:15)
--- NOTE | 2025-03-11 16:44 | DVHOP2 ---
Operative Report DATE OF OPERATION: 03/11/25 PROCEDURE: Flexible sigmoidoscopy with biopsy PREOPERATIVE INDICATION: The patient is a 64 -year-old female undergoing flexible sigmoidoscopy for evaluation of suspected rectal mass POSTOPERATIVE DIAGNOSES: 1. Patient had an obstructing friable circumferential rectosigmoid mass starting at about 5-6 cm above the anal verge beyond which the colonoscope could not be advanced Multiple biopsies were obtained PROCEDURE PERFORMED BY: Robert Leigh M.D. SCOPE: Olympus videocolonoscope. ASA CLASS: 3. PREOPERATIVE MEDICATIONS: Dr. Bob Mesa PROCEDURE IN DETAIL: After obtaining an informed consent, the patient was placed on left lateral decubitus position. She was then sedated with the above medications. A rectal examination was performed that was normal. The colonoscope was then passed through the anus into the rectosigmoid . Patient had an annular friable circumferential obstructing rectosigmoid mass starting at about 6 cm above the anal verge Multiple biopsies were obtained. The colonoscope was then withdrawn. The patient tolerated the procedure well without difficulty. WITHDRAWAL TIME: Not applicable QUALITY OF THE PREP: [place] Bowel Prep score: Not applicable COMPLICATIONS : None SPECIMENS: Rectosigmoid mass biopsies DISPOSITION: Transfer back to the floor Stable PLAN: 1. Await biopsy results 2. Ice chips and clear liquids 3. Oncology consultation ROBERT LEIGH MD Mar 11, 2025 16:44
--- NOTE | 2025-03-11 21:25 | DVHPN2 ---
Progress Note Date Seen: Mar 11, 2025 Medical Necessity Reason Pt with a Central, PICC or Fol: No Subjective Review of Systems: RESPIRATORY:Normal, GI:Normal, NEURO:Normal Objective vital signs Vital Sign Date Time Temp Pulse Resp B/P (MAP) Pulse Ox O2 Delivery O2 Flow Rate FiO2 03/11/25 21:00 97.7 74 18 132/74 (93) 96 97.7 03/11/25 16:36 Mask 8.0 100 Total Intake and Output 03/10/25 03/10/25 03/11/25 15:00 23:00 07:00 Intake Total 118 ml 450 ml 900 ml Output Total 600 ml Balance 118 ml 450 ml 300 ml medications Current Medications Medications Dose Ordered Sig/Pedro Route Start Time Stop Time Status Last Admin Dose Admin Sodium Chloride 1,000 ml @ 60 mls/hr [id number] IV 03/09/25 11:00 03/11/25 13:00 60 MLS/HR Acetaminophen/ Hydrocodone Bitart 1 tab Q4HP PRN PO 03/09/25 11:00 Hold 03/10/25 01:44 1 TAB Ondansetron HCl 4 mg Q4HP PRN IV 03/09/25 11:00 Morphine Sulfate 2 mg Q4HPRN PRN IV 03/09/25 11:00 Pantoprazole Sodium 40 mg DAILY IV 03/10/25 10:00 03/10/25 10:25 40 MG Diphenhydramine HCl 25 mg Q4HP PRN IV 03/09/25 17:00 03/09/25 17:01 25 MG Acetaminophen 650 mg Q4HP PRN PO 03/10/25 17:15 03/11/25 18:51 650 MG Examination: GENERAL:Normal, LUNGS:Normal, CVS:Normal, ABDOMEN:Normal, SKIN:Normal, NEURO:Normal laboratory and microbiology Laboratory Tests 03/10/25 06:28 Test 03/10/25 06:28 Range/Units Serum Glucose 79 74-106 mg/dL Labs and/or images reviewed: Labs reviewed by me, Image(s) reviewed by me Problem List/Assessment/Plan Problem List/Assessment/Plan 1. Intractable back pain Monitor, as needed pain meds 2. Hepatic metastatic disease Monitor, oncology consult, GI consult 3. Pulmonary Masses Monitor, tumor marker labs 4. Elevated troponin Monitor, cardiology consult, PPI, monitor EKG 5. Elevated liver enzymes Monitor, radiology consult for liver biopsy Assessment/Plan Subjective Patient is awake and alert. Objective Patient is Dive[place]. 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 I also discussed plan of care with patient and spoke with patients son who translated over the phone. Patient was admitted for abdominal pain. CT imaging showed liver metastasis. Bone scan negative for metastasis, patient is S/P colonoscopy by Dr. Leigh, pending biopsy results. Liver biopsy is pending Plan Continue current treatment. My colleague explain case to oncologist who will follow up with patient as outpatient. Tumor marker labs are elevated. Plan discussed with: Patient Date of Service: Mar 11, 2025 Billing Provider: EVELIA HOPKINS MD Common Visit Codes: [id number] INP/OBS CARE (MOD) AQUILES WALKER COAL WEIGHER Mar 11, 2025 21:25
[2025-03-12] VITALS (8 sets, daily range): BP systolic 124–149; BP diastolic 66–87; PULSE 55–98; RESP 16–20; TEMP 97.2–97.9; O2SAT 95–100
[2025-03-12 06:00] LABS: Chloride 105 mmol/L (98-107); Sodium 137 mmol/L (136-145)
[2025-03-12 06:01] LABS: Anion Gap 14 (5-15); Calcium 9.1 mg/dL (8.7-10.4)
[2025-03-12 06:05] LABS: Carbon Dioxide 18 mmol/L (20-31); Potassium 3.3 mmol/L (3.5-5.1)
[2025-03-12 06:06] LABS: BUN/Creatinine Ratio 13.9 (10.0-20.0); Glucose 80 mg/dL (74-106)
[2025-03-12 06:11] LABS: Blood Urea Nitrogen 5 mg/dL (9-23)
[2025-03-12 06:23] LABS: Basophils # (auto) 0.1 10 ^3/uL (0-0.2); Basophils % (auto) 0.8 % (0.0-2.0); Eosinophils # (auto) 1.2 10 ^3/uL (0-0.8); Eosinophils % (auto) 10.6 % (0.0-7.0); Hemoglobin 12.9 g/dL (12.2-16.2); Lymphocytes # (auto) 0.9 10 ^3/uL (0.4-5.4); Lymphocytes % (auto) 7.6 % (10.0-50.0); Mean Corpuscular Hemoglobin 29.5 pg (28.0-32.0); Mean Corpuscular Hgb Conc. 34.1 g/dL (32.0-36.0); Mean Corpuscular Volume 86.5 fL (80.0-100.0); Monocytes # (auto) 0.7 10 ^3/uL (0-1.3); Monocytes % (auto) 5.8 % (0.0-12.0); Neutrophils # (auto) 8.5 10 ^3/uL (1.6-8.6); Neutrophils % (auto) 75.2 % (37.0-80.0); Nucleated Red Blood Cells % 0.1 %; Platelet Count (auto) 231 10^3/uL (140-450); Red Blood Cells 4.39 10^6/uL (4.0-5.20); Red Cell Distribution Width 13.6 % (11.8-14.3); White Blood Cell 11.3 10^3/uL (4.4-10.8)
[2025-03-12] MEDS: POTASSIUM EFFERVESENT TAB 25 MEQ PO ONE (08:25)
--- NOTE | 2025-03-12 08:41 | DVHPN2 ---
Progress Note - Dictate Date Seen: Mar 12, 2025 Medical Necessity Reason Pt with a Central, PICC or Fol: No vital signs Vital Sign Date Time Temp Pulse Resp B/P (MAP) Pulse Ox O2 Delivery O2 Flow Rate FiO2 03/12/25 05:00 97.7 55 19 138/82 (100) 96 97.7 03/11/25 20:00 Nasal Cannula* 2 28 Total Intake and Output 03/11/25 03/11/25 03/12/25 15:00 23:00 07:00 Intake Total 185 ml 275 ml Output Total 850 ml Balance 185 ml -575 ml medications Current Medications Medications Dose Ordered Sig/Pedro Route Start Time Stop Time Status Last Admin Dose Admin Sodium Chloride 1,000 ml @ 60 mls/hr [id number] IV 03/09/25 11:00 03/11/25 13:00 60 MLS/HR Acetaminophen/ Hydrocodone Bitart 1 tab Q4HP PRN PO 03/09/25 11:00 Hold 03/10/25 01:44 1 TAB Ondansetron HCl 4 mg Q4HP PRN IV 03/09/25 11:00 Morphine Sulfate 2 mg Q4HPRN PRN IV 03/09/25 11:00 Pantoprazole Sodium 40 mg DAILY IV 03/10/25 10:00 03/12/25 08:30 40 MG Diphenhydramine HCl 25 mg Q4HP PRN IV 03/09/25 17:00 03/09/25 17:01 25 MG Acetaminophen 650 mg Q4HP PRN PO 03/10/25 17:15 03/12/25 08:26 650 MG laboratory and microbiology Laboratory Tests 03/12/25 05:04 Test 03/12/25 05:04 Range/Units Serum Glucose 80 74-106 mg/dL Assessment/Plan Patient is a 64-year-old Bengali female who presented with few weeks of generalized weakness/low back pain and change in bowel habitus. She speaks Bengali. Information was obtained by the help of the son who is at bedside. Since arrival to the hospital, the patient was found to have possible metastatic disease. GI is planning to go proceed with endoscopy and requested for cardiac risk stratification prior to endoscopy. Patient was also found to have minimally elevated/flat troponin. Cardiology was involved for above and cardiac aspects of care. Patient denies any chest pains. For the past few weeks, the patient has been experiencing lower back pain (more than usual), dry cough, generalized weakness and change in bowel habitus. Denies chest pains. Denies loss of consciousness. Denies palpitations. Denies orthopnea. Denies PND. There is some question about some bloody stool in the past 10 days. For the past few days did have some slurred speech also. Denies previous cardiac history. Baseline functional capacity prior to the past few weeks was good. Lying flat in bed. Not in acute distress. No JVD. Mucosa is pink and wet. No carotid bruit. No goiter. Scattered rhonchi in the lungs is heard. No crackles. Not using accessory muscles of breathing. Cardiac: Regular, no thrill/gallop. Abdomen is soft. Bowel sound is positive. Mild generalized tenderness is elicited. There is no rebound tenderness. There is no peripheral edema. Dorsalis pedis is 2+ bilateral. Past medical history includes lower back pain, chronic Family history includes several family members with different kind of cancers. Does not smoke cigarettes. No substance abuse. No alcohol abuse. Hemoglobin: 14.9 - 13.1 - 12.9 Creatinine: 0.49 - 0.44 - 0.36 Potassium: 3.7 - 3.7 - 3.3 AST/ALT: 96/134 - 57/92 Troponin (high sensitive): 202 - 182 - 191 Chest x-ray revealed: 1. Cardiomegaly and multiple ill-defined nodules appear to be nearly evenly distributed in the lungs. Imaging is required I would recommend CT examination of the chest but the findings are clearly seen in the recent abdominal study the lung windows CT of the chest revealed: IMPRESSION: 1. Numerous nodular densities are seen throughout both lungs suggestive of metastatic disease. The largest nodule measures approximately 1.2 cm in the right middle lobe. There is also probable superimposed pneumonia bilaterally. 2. Mediastinal lymphadenopathy 3. Numerous hypodense masses are also seen throughout the liver CT of the abdomen and pelvis revealed: IMPRESSION: 1. Masslike thickening of the mid to lower rectum with numerous perirectal nodules likely primary rectal neoplasm. 2. Hepatic Metastatic disease. 3. Retroperitoneal joana metastatic disease. 4. Innumerable bibasilar pulmonary nodular metastases. 5. Tiny nonobstructing right renal calculus. CT of the head revealed: IMPRESSION: No intracranial abnormality identified. Liver ultrasound revealed: IMPRESSION: Numerous hepatic masses measuring up to 4 cm in the left hepatic lobe. Bone scan revealed: Impression: There is no evidence of focal increased uptake consistent with bony metastatic disease. Mild multifocal activity consistent with degenerative changes as described above. EKG revealed sinus rhythm with nonspecific T-wave changes Tele reveals sinus rhythm Echocardiogram reported: Left ventricle: Left ventricle is normal-sized. Left ventricular systolic function was hyperdynamic. LVEF was around 75%. There was no gross wall motion abnormality. Right ventricle was normal-sized with normal systolic function. Both atria were normal-sized. Aortic valve was trileaflet. There was no aortic stenosis. There was mild aortic insufficiency. There was trace mitral/tricuspid regurgitation. There was trace/physiologic pulmonary valve insufficiency. Right ventricular systolic pressure was assessed at 28 mm Hg (normal). There was no pericardial effusion. Patient is a 64-year-old female who presented with generalized weakness, low back pain, nonproductive cough and reported slurred speech. Patient is found to have rectal mass in the imaging with findings in favor of metastatic cancer in liver/lungs. There is question about bloody stool in the past 10 days. Patient has been seen by GI and is planning for endoscopy. No previous cardiac history. Baseline functional capacity up to few weeks back was acceptable and normal. He is found to have minimally elevated/flat troponin. Presentation is not considered acute coronary syndrome. The mild increase in troponin most likely reflects demand physiology at this point. Recognizing the presentation and comorbidities, ischemic workup is not indicated presently. Metastatic disease Low back pain Rectal mass Liver/lung metastases Abnormal troponin s/p liver biopsy Cardiac suggestion for management: Manage on telemetry Follow-up electrolytes and kidney function tests and correct abnormalities. Keep potassium above 4 and magnesium above 2 Recognizing the presentation and comorbidities, ischemic workup is not indicated presently. Cardiac-montelongo, the patient is considered low risk patient for low risk sigmoidoscopy/endoscopy/colonoscopy/needle biopsy procedures. Cardiac-montelongo, you can proceed with the procedures under appropriate intra and postoperative hemodynamic monitoring. Avoid hypotension Cardiac-montelongo, the patient is considered low risk patient for moderate risk laparoscopic diverting colostomy. Cardiac-montelongo, you can proceed with the procedures under appropriate intra and postoperative hemodynamic monitoring. Avoid hypotension Evaluation and management of reported slurred speech as per primary team. Consider Neurology evaluation Evaluation and management of metastatic disease as per primary team/GI/Oncology Further evaluation and management depends on the above and clinical course A total of 55 minutes was spent reviewing the patient record, examining the patient, making a diagnostic and therapeutic plan, discussing this plan with medical personnel, following up on diagnostic studies and following the patient for clinical stability excluding any and all procedures. At least 50% of this time was spent in direct, [id number] contact. Thank you for allowing me to participate in this patient's care. Further recommendations will depend on patient's clinical course. Please do not hesitate to contact me if you have any questions or concerns. This medical document was created using electronic medical record system with [employer] computerized dictation system. Although this document has been carefully reviewed, there may still be some phonetic and typographical errors. These areas are purely typographical due to the imperfection of the software programs, and do not reflect any compromise in the patient's medical care. Plan discussed with: Other (nurse) FARIDA MOTT MD Mar 12, 2025 08:41
--- NOTE | 2025-03-12 19:33 | DVHPN2 ---
Progress Note Date Seen: Mar 12, 2025 Medical Necessity Reason Pt with a Central, PICC or Fol: No Subjective Patient reports: No new complaints Objective vital signs Vital Sign Date Time Temp Pulse Resp B/P (MAP) Pulse Ox O2 Delivery O2 Flow Rate FiO2 03/12/25 17:00 97.6 89 16 139/66 (90) 96 97.6 03/12/25 08:00 Nasal Cannula* 2 28 Total Intake and Output 03/11/25 03/11/25 03/12/25 15:00 23:00 07:00 Intake Total 185 ml 275 ml Output Total 850 ml Balance 185 ml -575 ml medications Current Medications Medications Dose Ordered Sig/Pedro Route Start Time Stop Time Status Last Admin Dose Admin Sodium Chloride 1,000 ml @ 60 mls/hr [id number] IV 03/09/25 11:00 03/12/25 12:30 60 MLS/HR Acetaminophen/ Hydrocodone Bitart 1 tab Q4HP PRN PO 03/09/25 11:00 Hold 03/10/25 01:44 1 TAB Ondansetron HCl 4 mg Q4HP PRN IV 03/09/25 11:00 Morphine Sulfate 2 mg Q4HPRN PRN IV 03/09/25 11:00 Pantoprazole Sodium 40 mg DAILY IV 03/10/25 10:00 03/12/25 08:30 40 MG Diphenhydramine HCl 25 mg Q4HP PRN IV 03/09/25 17:00 03/09/25 17:01 25 MG Acetaminophen 650 mg Q4HP PRN PO 03/10/25 17:15 03/12/25 16:47 650 MG Examination: GENERAL:Normal, LUNGS:Normal, CVS:Normal, ABDOMEN:Normal, SKIN:Normal, NEURO:Normal laboratory and microbiology Laboratory Tests 03/12/25 05:04 Test 03/12/25 05:04 Range/Units Serum Glucose 80 74-106 mg/dL Labs and/or images reviewed: Labs reviewed by me, Image(s) reviewed by me Problem List/Assessment/Plan Problem List/Assessment/Plan 1. Intractable back pain Monitor, as needed pain meds 2. Hepatic metastatic disease Monitor, oncology consult, GI consult 3. Pulmonary Masses Monitor, tumor marker labs 4. Elevated troponin Monitor, cardiology consult, PPI, monitor EKG 5. Elevated liver enzymes Monitor, radiology consult for liver biopsy Assessment/Plan Subjective Patient is awake and alert. Objective Patient is Setswana. 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 I also discussed plan of care with patient and spoke with patients son who translated over the phone. Patient was admitted for abdominal pain. CT imaging showed liver metastasis. Bone scan negative for metastasis, patient is S/P colonoscopy by Dr. Leigh, pending biopsy results. Liver biopsy is pending. Consult was placed for surgeon for possible colectomy. Patient gets relief with Tylenol for pain. Per patient's son, patient has adverse reactions whenever she received any narcotics and we will like to avoid Plan Continue current treatment. My colleague explain case to oncologist who will follow up with patient as outpatient. Tumor marker labs are elevated, pending surgical consult for colectomy Plan discussed with: Spouse My Orders My Orders Orders - AQUILES WALKER Procedure Category Date Status Time Notify Provider NOTICE 03/12/25 Transmitted Malnutrition 13:24 Increase Calorie NOURISH 03/12/25 Transmitted Intake 13:24 Nutritional NOURISH 03/12/25 Transmitted Supplements 13:24 Dietary Evaluation Review Recommendations by RD: Increase Calorie Intake, Protein Supplementation Comments: 1) Ensure clear 240ml TID (Ordered per ONS protocol) 2) Advance to 2gm Na diet as medically fesible 3) Consider Ensure Enlive 240ml TID if diet advanced to full liquid or higher 4) Consider Megace 800mg/20ml daily if PO intake <50% 5) Continue to monitor Po intake, pertinent labs, skin status and weight trends prn. F/U in 2-3 days Expected Outcomes/Goals: PO intake to meet at least 75% estimated needs lab values to improve Food and Nutrition Intake (Sev: <50% est energy req 5days Interpretation of weight loss: >2% in 1 week Protein Calorie Malnutrition: Severe Is there a minimum of two crit: Yes Date of Service: Mar 12, 2025 Billing Provider: EVELIA HOPKISN MD Common Visit Codes: [id number] INP/OBS CARE (MOD) AQUILES WALKER Mar 12, 2025 19:33
[2025-03-13] VITALS (8 sets, daily range): BP systolic 122–157; BP diastolic 62–93; PULSE 61–97; RESP 16–18; TEMP 97.2–98; O2SAT 90–100
[2025-03-13 09:28] LABS: Basophils # (auto) 0.1 10 ^3/uL (0-0.2); Basophils % (auto) 0.6 % (0.0-2.0); Eosinophils # (auto) 1.2 10 ^3/uL (0-0.8); Eosinophils % (auto) 9.6 % (0.0-7.0); Hematocrit 40.9 % (36.0-46.0); Hemoglobin 13.4 g/dL (12.2-16.2); Lymphocytes # (auto) 0.8 10 ^3/uL (0.4-5.4); Lymphocytes % (auto) 6.3 % (10.0-50.0); Mean Corpuscular Hemoglobin 28.3 pg (28.0-32.0); Mean Corpuscular Hgb Conc. 32.7 g/dL (32.0-36.0); Mean Corpuscular Volume 86.5 fL (80.0-100.0); Monocytes # (auto) 0.7 10 ^3/uL (0-1.3); Monocytes % (auto) 5.2 % (0.0-12.0); Neutrophils # (auto) 9.9 10 ^3/uL (1.6-8.6); Neutrophils % (auto) 78.3 % (37.0-80.0); Platelet Count (auto) 226 10^3/uL (140-450); Red Blood Cells 4.73 10^6/uL (4.0-5.20); Red Cell Distribution Width 13.9 % (11.8-14.3); White Blood Cell 12.6 10^3/uL (4.4-10.8)
[2025-03-13 09:40] LABS: Chloride 106 mmol/L (98-107); Sodium 136 mmol/L (136-145)
[2025-03-13 09:41] LABS: Anion Gap 15 (5-15)
[2025-03-13 09:42] LABS: Calcium 9.1 mg/dL (8.7-10.4)
[2025-03-13 09:46] LABS: Carbon Dioxide 15 mmol/L (20-31); Glucose 75 mg/dL (74-106); Potassium 3.3 mmol/L (3.5-5.1)
[2025-03-13 09:47] LABS: Magnesium 1.9 mg/dL (1.6-2.6)
[2025-03-13 09:50] LABS: BUN/Creatinine Ratio 13.9 (10.0-20.0); Blood Urea Nitrogen < 5 mg/dL (9-23)
--- NOTE | 2025-03-13 14:02 | DVHINCON2 ---
Date of service: Mar 13, 2025 Family History: Asthma G8 MOTHER Osteoporosis G8 FATHER Allergies: Coded Allergies: NO KNOWN ALLERGIES (Unverified , 03/08/25) Vital Signs Vital Signs Date Time Temp Pulse Resp B/P (MAP) Pulse Ox O2 Delivery O2 Flow Rate FiO2 03/13/25 09:00 97.5 83 16 139/89 (106) 95 97.5 03/13/25 08:00 Nasal Cannula* 2 28 Labs/Diagnostic Data Labs Test 03/13/25 09:09 03/10/25 06:28 03/09/25 13:03 03/09/25 11:04 Range/Units White Blood Count 12.6 H 4.4-10.8 10^3/uL Red Blood Count 4.73 4.0-5.20 10^6/uL Hemoglobin 13.4 12.2-16.2 g/dL Hematocrit 40.9 36.0-46.0 % Mean Corpuscular Volume 86.5 80.0-100.0 fL Mean Corpuscular Hemoglobin 28.3 28.0-32.0 pg Mean Corpuscular Hemoglobin Concent 32.7 32.0-36.0 g/dL Red Cell Distribution Width 13.9 11.8-14.3 % Platelet Count 226 140-450 10^3/uL Mean Platelet Volume 7.3 6.9-10.8 fL Neutrophils (%) (Auto) 78.3 37.0-80.0 % Lymphocytes (%) (Auto) 6.3 L 10.0-50.0 % Monocytes (%) (Auto) 5.2 0.0-12.0 % Eosinophils (%) (Auto) 9.6 H 0.0-7.0 % Basophils (%) (Auto) 0.6 0.0-2.0 % Neutrophils # (Auto) 9.9 H 1.6-8.6 10 ^3/uL Lymphocytes # (Auto) 0.8 0.4-5.4 10 ^3/uL Monocytes # (Auto) 0.7 0-1.3 10 ^3/uL Eosinophils # (Auto) 1.2 H 0-0.8 10 ^3/uL Basophils # (Auto) 0.1 0-0.2 10 ^3/uL Nucleated Red Blood Cells 0.0 % Sodium Level 136 136-145 mmol/L Potassium Level 3.3 L 3.5-5.1 mmol/L Chloride Level 106 98-107 mmol/L Carbon Dioxide Level 15 L 20-31 mmol/L Anion Gap 15 5-15 Blood Urea Nitrogen < 5 L 9-23 mg/dL Creatinine 0.36 L 0.550-1.02 mg/dL Glomerular Filtration Rate Calc 114 >90 mL/min BUN/Creatinine Ratio 13.9 10.0-20.0 Serum Glucose 75 74-106 mg/dL Calcium Level 9.1 8.7-10.4 mg/dL Magnesium Level 1.9 1.6-2.6 mg/dL Total Bilirubin 0.9 0.2-1.0 mg/dL Aspartate Amino Transferase (AST) 57 H 13-40 U/L Alanine Aminotransferase (ALT) 92 H 7-40 U/L Alkaline Phosphatase 372 H 46-116 U/L Total Protein 5.9 5.7-8.2 g/dL Albumin 3.5 3.2-4.8 g/dL Prothrombin Time 11.4 9.3-11.8 sec Prothrombin Time INR 1.08 0.9-1.15 Activated Partial Thromboplast Time 29.1 24.5-34.5 SEC Tumor Marker Alpha Fetoprotein 5.6 0.0-9.2 ng/mL Carcinoembryonic Antigen 9.04 <=5.0 ng/mL CA 19-9 Antigen 92820 H 0-35 U/mL Hepatitis A Antibody Total Positive H Negative Hepatitis B Surface Antigen Negative Negative Hepatitis B Surface Antibody Positive H Negative Hepatitis B Core Total Antibody Negative Negative Hepatitis C Antibody Negative Negative Test 03/09/25 08:00 03/08/25 23:25 03/08/25 22:00 Range/Units Urine Color Yellow Yellow Urine Clarity Turbid H Clear Urine pH 6.0 5.0-9.0 Urine Specific [place] 1.017 1.001-1.035 Urine Protein Trace H Negative Urine Ketones 3+ H Negative Urine Blood Negative Negative /uL Urine Nitrite Negative Negative Urine Bilirubin Negative Negative Urine Urobilinogen 2 H Negative mg/dL Urine Leukocyte Esterase Negative Negative /uL Urine RBC 5 0 - 4 /hpf Urine Microscopic WBC 2 0-5 /HPF Urine Squamous Epithelial Cells None seen <5 /hpf Urine Bacteria None seen None Seen /hpf Urine Hyaline Casts Few 0 - 2 /lpf Urine Mucus Few None Seen Urine Glucose Normal Normal mg/dL Troponin I High Sensitivity 191 *H </=34 ng/L POC Glucose 124 H 70-106 mg/dl Assessment [id number] AFEBRILE VSS ABD SOFT BM + METASTATIC COLONIC CA R/O RECENT STROKE NEUROLOGY EVAL CONSIDER SURGERY BASED ON ONCOLOGY EVAL Plan discussed with: Other MARK RAMIREZ MD Mar 13, 2025 14:02
[2025-03-13] MEDS: POTASSIUM CHL 20MEQ/50ML 50 ML IV ONE (14:18)
[2025-03-13 16:14] LABS: Anion Gap 12 (5-15); Calcium 9.4 mg/dL (8.7-10.4); Chloride 106 mmol/L (98-107); Glucose 82 mg/dL (74-106); Total Protein 6.3 g/dL (5.7-8.2)
[2025-03-13] MEDS: ASPirin 81 mg TAB PO ONE (16:15)
[2025-03-13 16:18] LABS: Alanine Aminotransferase 66 U/L (7-40); Alkaline Phosphatase 403 U/L (46-116); Aspartate Aminotransferase 63 U/L (13-40); BUN/Creatinine Ratio 12.5 (10.0-20.0); Bilirubin, Total 1.4 mg/dL (0.2-1.0); Blood Urea Nitrogen < 5 mg/dL (9-23); Carbon Dioxide 17 mmol/L (20-31); Potassium 3.1 mmol/L (3.5-5.1); Sodium 135 mmol/L (136-145)
--- NOTE | 2025-03-13 16:41 | DVHINCON2 ---
DATE OF CONSULTATION: 03/13/2025 HISTORY OF PRESENT ILLNESS: This patient is 64 years old, coming in with generalized weakness, low back pain and history of constipation and she recently had a colonoscopy that showed colonic mass and she also was then investigated and found to have metastatic colonic disease and the biopsy came back with adenocarcinoma and I was asked to see her. At this point, she is not having any constipation issues. No nausea, vomiting. No hematemesis or melena. No bleeding per rectum. PAST MEDICAL HISTORY: No diabetes, hypertension. PAST SURGICAL HISTORY: . PHYSICAL EXAMINATION: VITAL SIGNS: Afebrile, stable signs. HEENT: With no evidence of pallor, cyanosis, or jaundice. NECK: Supple, nontender with no thyromegaly, lymphadenopathy. CHEST AND LUNGS: Clear. HEART: Within normal limits. ABDOMEN: Soft, nontender. No rebound. EXTREMITIES: Unremarkable. NEUROLOGIC: She does not have movement of her left upper extremity, there is a possibility of a recent stroke. CLINICAL IMPRESSION: Colonic CA with metastatic disease with an ongoing left sided stroke. PLAN: Will be to have a neurology evaluation and at this point, does not need acute surgical intervention and patient needs to be managed on close observation and consider surgery based upon ongoing evaluation. MD JESSICA Simms/JOAQUINA TID: [id number] RECEIPT: [id number] cc: JUDY JACK
--- NOTE | 2025-03-13 17:32 | DVH ---
MRI BRAIN HEAD WO CONTRAST INDICATION: slurred speech/left arm weakness : 64 old Female slurred speech/left arm weakness EXAM DATE: 03/13/2025 04:37 PM COMPARISON: None PROCEDURE: Using a 1.5 Lesli scanner, multisequence multiplanar imaging of the brain was obtained. FINDINGS: Multifocal areas of diffusion restriction in the right > left cerebellum, right > left cere padmini (parietal, frontal, occipital lobes). The brain otherwise shows normal morphology and signal ch aracteristics. Foci of abnormal susceptibility hypointensity is present along the left parietal lobe could be microhemorrhage.. The ventricles are normal in size. The midline structures are intact. The major intracranial flow voids are present. The aerated spaces are normal. The orbital contents and ex tracranial soft tissues appear normal. IMPRESSION: Multifocal areas of diffusion restriction in the right > left cerebellum, right > left cerebrum (teodoro etal, frontal, occipital lobes) consistent with acute infarct. Foci of abnormal susceptibility hypointensity is present along the left parietal lobe could be microh emorrhage. Critical Result: Infarct Findings discussed with Luz Khan at 03/13/2025 05:27 PM and acknowledged receipt and understanding of the findings.
--- NOTE | 2025-03-13 19:22 | DVHPN2 ---
Progress Note - Dictate Date Seen: Mar 13, 2025 Medical Necessity Reason Pt with a Central, PICC or Fol: No vital signs Vital Sign Date Time Temp Pulse Resp B/P (MAP) Pulse Ox O2 Delivery O2 Flow Rate FiO2 03/13/25 17:00 98.0 88 16 135/81 (99) 95 98.0 03/13/25 08:00 Nasal Cannula* 2 28 Total Intake and Output 03/12/25 03/12/25 03/13/25 15:00 23:00 07:00 Intake Total 420 ml 0 ml Balance 420 ml 0 ml medications Current Medications Medications Dose Ordered Sig/Pedro Route Start Time Stop Time Status Last Admin Dose Admin Sodium Chloride 1,000 ml @ 60 mls/hr [id number] IV 03/09/25 11:00 03/12/25 12:30 60 MLS/HR Acetaminophen/ Hydrocodone Bitart 1 tab Q4HP PRN PO 03/09/25 11:00 Hold 03/10/25 01:44 1 TAB Ondansetron HCl 4 mg Q4HP PRN IV 03/09/25 11:00 Morphine Sulfate 2 mg Q4HPRN PRN IV 03/09/25 11:00 Pantoprazole Sodium 40 mg DAILY IV 03/10/25 10:00 03/13/25 07:59 40 MG Diphenhydramine HCl 25 mg Q4HP PRN IV 03/09/25 17:00 03/09/25 17:01 25 MG Acetaminophen 650 mg Q4HP PRN PO 03/10/25 17:15 03/13/25 16:23 650 MG Aspirin 81 mg DAILY PO 03/14/25 10:00 Cancel Atorvastatin Calcium 20 mg HS PO 03/13/25 22:00 laboratory and microbiology Laboratory Tests 03/13/25 15:25 03/13/25 09:09 Test 03/13/25 15:25 Range/Units Serum Glucose 82 74-106 mg/dL Assessment/Plan Patient is a 64-year-old [place] female who presented with few weeks of generalized weakness/low back pain and change in bowel habitus. She speaks Kinyarwanda. Information was obtained by the help of the son who is at bedside. Since arrival to the hospital, the patient was found to have possible metastatic disease. GI is planning to go proceed with endoscopy and requested for cardiac risk stratification prior to endoscopy. Patient was also found to have minimally elevated/flat troponin. Cardiology was involved for above and cardiac aspects of care. Patient denies any chest pains. For the past few weeks, the patient has been experiencing lower back pain (more than usual), dry cough, generalized weakness and change in bowel habitus. Denies chest pains. Denies loss of consciousness. Denies palpitations. Denies orthopnea. Denies PND. There is some question about some bloody stool in the past 10 days. For the past few days did have some slurred speech also. Denies previous cardiac history. Baseline functional capacity prior to the past few weeks was good. Lying flat in bed. Not in acute distress. No JVD. Mucosa is pink and wet. No carotid bruit. No goiter. Scattered rhonchi in the lungs is heard. No crackles. Not using accessory muscles of breathing. Cardiac: Regular, no thrill/gallop. Abdomen is soft. Bowel sound is positive. Mild generalized tenderness is elicited. There is no rebound tenderness. There is no peripheral edema. Dorsalis pedis is 2+ bilateral. Past medical history includes lower back pain, chronic Family history includes several family members with different kind of cancers. Does not smoke cigarettes. No substance abuse. No alcohol abuse. Troponin (high sensitive): 202 - 182 - 191 Chest x-ray revealed: 1. Cardiomegaly and multiple ill-defined nodules appear to be nearly evenly distributed in the lungs. Imaging is required I would recommend CT examination of the chest but the findings are clearly seen in the recent abdominal study the lung windows CT of the chest revealed: IMPRESSION: 1. Numerous nodular densities are seen throughout both lungs suggestive of metastatic disease. The largest nodule measures approximately 1.2 cm in the right middle lobe. There is also probable superimposed pneumonia bilaterally. 2. Mediastinal lymphadenopathy 3. Numerous hypodense masses are also seen throughout the liver CT of the abdomen and pelvis revealed: IMPRESSION: 1. Masslike thickening of the mid to lower rectum with numerous perirectal nodules likely primary rectal neoplasm. 2. Hepatic Metastatic disease. 3. Retroperitoneal joana metastatic disease. 4. Innumerable bibasilar pulmonary nodular metastases. 5. Tiny nonobstructing right renal calculus. CT of the head revealed: IMPRESSION: No intracranial abnormality identified. Liver ultrasound revealed: IMPRESSION: Numerous hepatic masses measuring up to 4 cm in the left hepatic lobe. Bone scan revealed: Impression: There is no evidence of focal increased uptake consistent with bony metastatic disease. Mild multifocal activity consistent with degenerative changes as described above. MRI of brain revealed: IMPRESSION: Multifocal areas of diffusion restriction in the right > left cerebellum, right > left cerebrum (parietal, frontal, occipital lobes) consistent with acute infarct. Foci of abnormal susceptibility hypointensity is present along the left parietal lobe could be microhemorrhage. EKG revealed sinus rhythm with nonspecific T-wave changes Tele reveals sinus rhythm Echocardiogram reported: Left ventricle: Left ventricle is normal-sized. Left ventricular systolic function was hyperdynamic. LVEF was around 75%. There was no gross wall motion abnormality. Right ventricle was normal-sized with normal systolic function. Both atria were normal-sized. Aortic valve was trileaflet. There was no aortic stenosis. There was mild aortic insufficiency. There was trace mitral/tricuspid regurgitation. There was trace/physiologic pulmonary valve insufficiency. Right ventricular systolic pressure was assessed at 28 mm Hg (normal). There was no pericardial effusion. Patient is a 64-year-old female who presented with generalized weakness, low back pain, nonproductive cough and reported slurred speech. Patient is found to have rectal mass in the imaging with findings in favor of metastatic cancer in liver/lungs. There is question about bloody stool in the past 10 days. Patient has been seen by GI and is planning for endoscopy. No previous cardiac history. Baseline functional capacity up to few weeks back was acceptable and normal. He is found to have minimally elevated/flat troponin. Presentation is not considered acute coronary syndrome. The mild increase in troponin most likely reflects demand physiology at this point. Recognizing the presentation and comorbidities, ischemic workup is not indicated presently. Brain MRI questions CVA? Metastatic disease Low back pain Rectal mass Liver/lung metastases Abnormal troponin s/p liver biopsy Cardiac suggestion for management: Manage on telemetry Follow-up electrolytes and kidney function tests and correct abnormalities. Keep potassium above 4 and magnesium above 2 Recognizing the presentation and comorbidities, ischemic workup is not indicated presently. Cardiac-montelongo, the patient is considered low risk patient for low risk sigmoidoscopy/endoscopy/colonoscopy/needle biopsy procedures. Cardiac-montelongo, you can proceed with the procedures under appropriate intra and postoperative hemodynamic monitoring. Avoid hypotension Cardiac-montelongo, the patient is considered low risk patient for moderate risk laparoscopic diverting colostomy. Cardiac-montelongo, you can proceed with the procedures under appropriate intra and postoperative hemodynamic monitoring. Avoid hypotension Evaluation and management of reported slurred speech as per primary team. Consider Neurology evaluation Evaluation and management of metastatic disease as per primary team/GI/Oncology Further evaluation and management depends on the above and clinical course A total of 55 minutes was spent reviewing the patient record, examining the patient, making a diagnostic and therapeutic plan, discussing this plan with medical personnel, following up on diagnostic studies and following the patient for clinical stability excluding any and all procedures. At least 50% of this time was spent in direct, [id number] contact. Thank you for allowing me to participate in this patient's care. Further recommendations will depend on patient's clinical course. Please do not hesitate to contact me if you have any questions or concerns. This medical document was created using electronic medical record system with [employer] computerized dictation system. Although this document has been carefully reviewed, there may still be some phonetic and typographical errors. These areas are purely typographical due to the imperfection of the software programs, and do not reflect any compromise in the patient's medical care. Dietary Evaluation Review Recommendations by RD: Increase Calorie Intake, Protein Supplementation Comments: 1) Ensure clear 240ml TID (Ordered per ONS protocol) 2) Advance to 2gm Na diet as medically fesible 3) Consider Ensure Enlive 240ml TID if diet advanced to full liquid or higher 4) Consider Megace 800mg/20ml daily if PO intake <50% 5) Continue to monitor Po intake, pertinent labs, skin status and weight trends prn. F/U in 2-3 days Expected Outcomes/Goals: PO intake to meet at least 75% estimated needs lab values to improve Food and Nutrition Intake (Sev: <50% est energy req 5days Interpretation of weight loss: >2% in 1 week Protein Calorie Malnutrition: Severe Is there a minimum of two crit: Yes Plan discussed with: Other (nurse) FARIDA MOTT MD Mar 13, 2025 19:22
--- NOTE | 2025-03-13 19:45 | DVHPN2 ---
Progress Note Date Seen: Mar 13, 2025 Medical Necessity Reason Pt with a Central, PICC or Fol: No Subjective Changes from previous H/P or p: No Changes Objective vital signs Vital Sign Date Time Temp Pulse Resp B/P (MAP) Pulse Ox O2 Delivery O2 Flow Rate FiO2 03/13/25 17:00 98.0 88 16 135/81 (99) 95 98.0 03/13/25 08:00 Nasal Cannula* 2 28 Total Intake and Output 03/12/25 03/12/25 03/13/25 15:00 23:00 07:00 Intake Total 420 ml 0 ml Balance 420 ml 0 ml medications Current Medications Medications Dose Ordered Sig/Pedro Route Start Time Stop Time Status Last Admin Dose Admin Sodium Chloride 1,000 ml @ 60 mls/hr [id number] IV 03/09/25 11:00 03/12/25 12:30 60 MLS/HR Acetaminophen/ Hydrocodone Bitart 1 tab Q4HP PRN PO 03/09/25 11:00 Hold 03/10/25 01:44 1 TAB Ondansetron HCl 4 mg Q4HP PRN IV 03/09/25 11:00 Morphine Sulfate 2 mg Q4HPRN PRN IV 03/09/25 11:00 Pantoprazole Sodium 40 mg DAILY IV 03/10/25 10:00 03/13/25 07:59 40 MG Diphenhydramine HCl 25 mg Q4HP PRN IV 03/09/25 17:00 03/09/25 17:01 25 MG Acetaminophen 650 mg Q4HP PRN PO 03/10/25 17:15 03/13/25 16:23 650 MG Aspirin 81 mg DAILY PO 03/14/25 10:00 Cancel Atorvastatin Calcium 20 mg HS PO 03/13/25 22:00 Examination: GENERAL:Normal, LUNGS:Normal, CVS:Normal, ABDOMEN:Normal, MSK:Normal, SKIN:Normal, NEURO:Abnormal (Left arm weakness) laboratory and microbiology Laboratory Tests 03/13/25 15:25 03/13/25 09:09 Test 03/13/25 15:25 Range/Units Serum Glucose 82 74-106 mg/dL Labs and/or images reviewed: Labs reviewed by me Problem List/Assessment/Plan Problem List/Assessment/Plan 1. Intractable back pain Monitor, as needed pain meds 2. Hepatic metastatic disease Monitor, oncology consult, GI consult 3. Pulmonary Masses Monitor, tumor marker labs 4. Elevated troponin Monitor, cardiology consult, PPI, monitor EKG 5. Elevated liver enzymes Monitor, radiology consult for liver biopsy 6. Acute CVA Neurology consult, PT eval Assessment/Plan Subjective Patient is awake and alert. Objective Patient is Turkmen. 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 I also discussed plan of care with patient and spoke with patients son who translated over the phone. Patient was admitted for abdominal pain. CT imaging showed liver metastasis. Bone scan negative for metastasis, patient is S/P colonoscopy by Dr. Leigh, pending biopsy results. Liver biopsy is pending. Patient gets relief with Tylenol for pain. Per patient's son, patient has adverse reactions whenever she received any narcotics and we will like to avoid. I was made aware today that patient was having left arm weakness and slurred speech as they were communication barriers it was unclear when symptoms started. Brain MRI was done which was consistent with acute CVA. Dr. Machado neurologist is out of town at this time, consulted tele Neurology which is still pending. Surgical consult has been placed on hold due to acute CVA. Plan Continue current treatment. My colleague explain case to oncologist who will follow up with patient as outpatient. Tumor marker labs are elevated, pending tele neurology consult, PT eval, colectomy is now on hold Plan discussed with: Patient My Orders My Orders Orders - [facility] Procedure Category Date Status Time Communication Order ORDERS 03/13/25 Transmitted 06:46 * Dietary Consult CONS 03/13/25 Transmitted 14:50 Brain Head Wo Contrast MRI 03/13/25 Resulted 14:46 Lipid Panel LAB 03/14/25 Verified 06:00 Atorvastatin (Lipitor) PHA 03/13/25 In Process 22:00 Dietary Evaluation Review Recommendations by RD: Increase Calorie Intake, Protein Supplementation Comments: 1) Ensure clear 240ml TID (Ordered per ONS protocol) 2) Advance to 2gm Na diet as medically fesible 3) Consider Ensure Enlive 240ml TID if diet advanced to full liquid or higher 4) Consider Megace 800mg/20ml daily if PO intake <50% 5) Continue to monitor Po intake, pertinent labs, skin status and weight trends prn. F/U in 2-3 days Expected Outcomes/Goals: PO intake to meet at least 75% estimated needs lab values to improve Food and Nutrition Intake (Sev: <50% est energy req 5days Interpretation of weight loss: >2% in 1 week Protein Calorie Malnutrition: Severe Is there a minimum of two crit: Yes Date of Service: Mar 13, 2025 Billing Provider: EVELIA HOPKINS MD Common Visit Codes: 44928-DUVCOAI INP/OBS CARE (MOD) [facility] SPECIALIST Mar 13, 2025 19:45
--- NOTE | 2025-03-13 19:56 | BSKYNEURO ---
[facility] Note # Demographics Consult Type: Acute Stroke Level 2 (4.5-24 hrs) Patient Location: Inpatient First Name: Zahida Bassett Last Name: Eli Date of : 1960 Age: 64 Gender: Female Facility: [facility] Time of Initial Page (): 03/13/2025 18:49 Time of Return Call (): 03/13/2025 18:50 # HPI History: 64 y/o with recent metastatic colon cancer with mets to liver who was admitted for weakness. Also had dysarthria and LUE/LLE weakness since 03/08/25. MRI done today shows embolic shower. # Scores Time of exam and NIHSS (): 03/13/2025 19:52 Level of Consciousness 1a: [0] = Alert; keenly responsive LOC Questions 1b: [0] = Answers both questions correctly LOC Commands 1c: [0] = Performs both tasks correctly Best Gaze 2: [0] = Normal Visual 3: [0] = No visual loss Facial Palsy 4: [2] = Partial paralysis Motor Arm Left 5a: [2] = Some effort against gravity Motor Arm Right 5b: [0] = No drift Motor Leg Left 6a: [1] = Drift Motor Leg Right 6b: [0] = No drift Limb Ataxia 7: [0] = Absent Sensory 8: [0] = Normal Best Language 9: [0] = No aphasia Dysarthria 10: [1] = [id number] dysarthria Extinction and Inattention 11: [0] = No abnormality NIHSS Total: 6 # Data Time Head CT personally read by me (): 03/13/2025 19:56 MRI: - acute ischemia - preliminarily reviewed by me, please refer to radiology read for official reading # Assessment Impression: Embolic shower, likely in setting of hypercoagulability of new cancer. There is no clear answer regarding antithrombotics for patients with cancer and stroke. In this situation, given 3 different vascular territories and metastatic cancer with liver involvement, would be reasonable to trial apixaban 5 mg BID depending on her bleeding risk from her liver disease/colon mass. If her bleeding risk is high, would use ASA 325 mg monotherapy. # Plan Thrombolytic/Intervention: NOT IV Thrombolysis or IA Intervention candidate Thrombolytic Exclusion: > 4.5 hours Intraarterial Exclusion: - unfavorable imaging/hypodensity no signs of LVO Labs: ddimer Imaging: (urgency: routine): - US carotid LE dopplers Diagnostic Test: - echo without bubble study Medication: see above DVT Prophylaxis: - enoxaprin (Lovenox) 40 mg subcutaneously daily Other: - If patient has any neurological deterioration please call me back immediately - I have discussed my recommendations with the referring provider Disposition: continue admission # Logistics Attestation of consult completion: The patient is located at: [facility]. Facility staff participated in the visit. I performed this telemedicine visit from my offsite office utilizing interactive 2 way audio and visual telecommunication technology. Consent: Verbal consent was obtained from the patient and/or family for this encounter. Total time spent in telemedicine encounter: I spent 15 minutes reviewing clinic al data and/or imaging, obtaining history, examining the patient, communicating with the onsite care team, and in preparation of this report. # Demographics First Name: Zahida Bassett Last Name: Eli Facility: [facility] Yes BENOIT MATIAS MD Mar 13, 2025 19:56
--- NOTE | 2025-03-13 22:28 | DVHPN2 ---
Progress Note - Dictate Date Seen: Mar 13, 2025 Medical Necessity Reason Pt with a Central, PICC or Fol: No Subjective Patient seen at bedside Patient developed moderate amount of lower abdominal pain after the sigmoidoscopy The Tylenol was not helping her abdominal pain However last night and this morning the patient has had multiple bowel movements small ones to begin with and a larger one this morning Patient has been having trouble having a bowel movement for the last 3-4 weeks because of the rectosigmoid obstructing tumor She has generalized weakness, recent CVA vital signs Vital Sign Date Time Temp Pulse Resp B/P (MAP) Pulse Ox O2 Delivery O2 Flow Rate FiO2 03/13/25 17:00 98.0 88 16 135/81 (99) 95 98.0 03/13/25 08:00 Nasal Cannula* 2 28 Total Intake and Output 03/12/25 03/12/25 03/13/25 15:00 23:00 07:00 Intake Total 420 ml 0 ml Balance 420 ml 0 ml medications Current Medications Medications Dose Ordered Sig/Pedro Route Start Time Stop Time Status Last Admin Dose Admin Sodium Chloride 1,000 ml @ 60 mls/hr [id number] IV 03/09/25 11:00 03/12/25 12:30 60 MLS/HR Acetaminophen/ Hydrocodone Bitart 1 tab Q4HP PRN PO 03/09/25 11:00 Hold 03/10/25 01:44 1 TAB Ondansetron HCl 4 mg Q4HP PRN IV 03/09/25 11:00 Morphine Sulfate 2 mg Q4HPRN PRN IV 03/09/25 11:00 Pantoprazole Sodium 40 mg DAILY IV 03/10/25 10:00 03/13/25 07:59 40 MG Diphenhydramine HCl 25 mg Q4HP PRN IV 03/09/25 17:00 03/09/25 17:01 25 MG Acetaminophen 650 mg Q4HP PRN PO 03/10/25 17:15 03/13/25 20:26 650 MG Aspirin 81 mg DAILY PO 03/14/25 10:00 Cancel Atorvastatin Calcium 20 mg HS PO 03/13/25 22:00 objective GENERAL:Normal, LUNGS:Normal, CVS:Normal, ABDOMEN:Normal, MSK:Normal, SKIN:Normal, NEURO:Abnormal (Left arm weakness) laboratory and microbiology Laboratory Tests 4/13/25 15:25 03/13/25 09:09 Test 03/13/25 15:25 Range/Units Serum Glucose 82 74-106 mg/dL Problems(with codes): (1) Rectal mass (2) Metastatic neoplasm (3) CVA (cerebral vascular accident) Prognosis Plan Advance to full liquid diet if she can tolerated Surgical consult appreciated Current recommendations are to proceed with oncology consult and chemoradiation as soon as it can be arranged [place] [id number]! Prognosis remains guarded Especially as the patient appears to have had new ischemia with left side weakness Liver enzymes trending up likely due to metastatic disease possible hospice candidate if she does not respond to treatment Dietary Evaluation Review Recommendations by RD: Increase Calorie Intake, Protein Supplementation Comments: 1) Ensure clear 240ml TID (Ordered per ONS protocol) 2) Advance to 2gm Na diet as medically fesible 3) Consider Ensure Enlive 240ml TID if diet advanced to full liquid or higher 4) Consider Megace 800mg/20ml daily if PO intake <50% 5) Continue to monitor Po intake, pertinent labs, skin status and weight trends prn. F/U in 2-3 days Expected Outcomes/Goals: PO intake to meet at least 75% estimated needs lab values to improve Food and Nutrition Intake (Sev: <50% est energy req 5days Interpretation of weight loss: >2% in 1 week Protein Calorie Malnutrition: Severe Is there a minimum of two crit: Yes Plan discussed with: Patient, Daughter, Son, Other ROBERT RAMIREZ MD Mar 13, 2025 22:28
[2025-03-13] MEDS: ATORVASTATIN 20 MG TAB PO SCH (23:59)
[2025-03-14] VITALS (8 sets, daily range): BP systolic 117–139; BP diastolic 73–82; PULSE 64–94; RESP 15–18; TEMP 97.3–98.3; O2SAT 93–100
[2025-03-14 06:53] LABS: LDL Cholesterol 84 mg/dL (< 100)
[2025-03-14 06:54] LABS: Cholesterol 170 mg/dL (< 200); HDL Cholesterol 38 mg/dL (40-59); Triglycerides 199 mg/dL (< 150)
--- NOTE | 2025-03-14 08:20 | DVHPN2 ---
Progress Note - Dictate Date Seen: Mar 14, 2025 Medical Necessity Reason Pt with a Central, PICC or Fol: No vital signs Vital Sign Date Time Temp Pulse Resp B/P (MAP) Pulse Ox O2 Delivery O2 Flow Rate FiO2 03/14/25 05:00 97.3 94 17 117/74 (88) 93 97.3 03/13/25 20:00 Nasal Cannula* 2 28 Total Intake and Output 03/13/25 03/13/25 03/14/25 15:00 23:00 07:00 Intake Total 410 ml 500 ml Balance 410 ml 500 ml medications Current Medications Medications Dose Ordered Sig/Pedro Route Start Time Stop Time Status Last Admin Dose Admin Sodium Chloride 1,000 ml @ 60 mls/hr [id number] IV 03/09/25 11:00 03/14/25 07:46 60 MLS/HR Acetaminophen/ Hydrocodone Bitart 1 tab Q4HP PRN PO 03/09/25 11:00 Hold 03/10/25 01:44 1 TAB Ondansetron HCl 4 mg Q4HP PRN IV 03/09/25 11:00 Morphine Sulfate 2 mg Q4HPRN PRN IV 03/09/25 11:00 Pantoprazole Sodium 40 mg DAILY IV 03/10/25 10:00 03/13/25 07:59 40 MG Diphenhydramine HCl 25 mg Q4HP PRN IV 03/09/25 17:00 03/09/25 17:01 25 MG Acetaminophen 650 mg Q4HP PRN PO 03/10/25 17:15 03/14/25 07:06 650 MG Aspirin 81 mg DAILY PO 03/14/25 10:00 Cancel Atorvastatin Calcium 20 mg HS PO 03/13/25 22:00 03/13/25 23:59 20 MG Aspirin 325 mg DAILY PO 03/14/25 10:00 UNV laboratory and microbiology Laboratory Tests 03/13/25 15:25 03/13/25 09:09 Test 03/13/25 15:25 Range/Units Serum Glucose 82 74-106 mg/dL Assessment/Plan Patient is a 64-year-old [place] female who presented with few weeks of generalized weakness/low back pain and change in bowel habitus. She speaks Swedish. Information was obtained by the help of the son who is at bedside. Since arrival to the hospital, the patient was found to have possible metastatic disease. GI is planning to go proceed with endoscopy and requested for cardiac risk stratification prior to endoscopy. Patient was also found to have minimally elevated/flat troponin. Cardiology was involved for above and cardiac aspects of care. Patient denies any chest pains. For the past few weeks, the patient has been experiencing lower back pain (more than usual), dry cough, generalized weakness and change in bowel habitus. Denies chest pains. Denies loss of consciousness. Denies palpitations. Denies orthopnea. Denies PND. There is some question about some bloody stool in the past 10 days. For the past few days did have some slurred speech also. Denies previous cardiac history. Baseline functional capacity prior to the past few weeks was good. Lying flat in bed. Not in acute distress. No JVD. Mucosa is pink and wet. No carotid bruit. No goiter. Scattered rhonchi in the lungs is heard. No crackles. Not using accessory muscles of breathing. Cardiac: Regular, no thrill/gallop. Abdomen is soft. Bowel sound is positive. Mild generalized tenderness is elicited. There is no rebound tenderness. There is no peripheral edema. Dorsalis pedis is 2+ bilateral. Past medical history includes lower back pain, chronic Family history includes several family members with different kind of cancers. Does not smoke cigarettes. No substance abuse. No alcohol abuse. Troponin (high sensitive): 202 - 182 - 191 Chest x-ray revealed: 1. Cardiomegaly and multiple ill-defined nodules appear to be nearly evenly distributed in the lungs. Imaging is required I would recommend CT examination of the chest but the findings are clearly seen in the recent abdominal study the lung windows CT of the chest revealed: IMPRESSION: 1. Numerous nodular densities are seen throughout both lungs suggestive of metastatic disease. The largest nodule measures approximately 1.2 cm in the right middle lobe. There is also probable superimposed pneumonia bilaterally. 2. Mediastinal lymphadenopathy 3. Numerous hypodense masses are also seen throughout the liver CT of the abdomen and pelvis revealed: IMPRESSION: 1. Masslike thickening of the mid to lower rectum with numerous perirectal nodules likely primary rectal neoplasm. 2. Hepatic Metastatic disease. 3. Retroperitoneal joana metastatic disease. 4. Innumerable bibasilar pulmonary nodular metastases. 5. Tiny nonobstructing right renal calculus. CT of the head revealed: IMPRESSION: No intracranial abnormality identified. Liver ultrasound revealed: IMPRESSION: Numerous hepatic masses measuring up to 4 cm in the left hepatic lobe. Bone scan revealed: Impression: There is no evidence of focal increased uptake consistent with bony metastatic disease. Mild multifocal activity consistent with degenerative changes as described above. MRI of brain revealed: IMPRESSION: Multifocal areas of diffusion restriction in the right > left cerebellum, right > left cerebrum (parietal, frontal, occipital lobes) consistent with acute infarct. Foci of abnormal susceptibility hypointensity is present along the left parietal lobe could be microhemorrhage. EKG revealed sinus rhythm with nonspecific T-wave changes Tele reveals sinus rhythm Echocardiogram reported: Left ventricle: Left ventricle is normal-sized. Left ventricular systolic function was hyperdynamic. LVEF was around 75%. There was no gross wall motion abnormality. Right ventricle was normal-sized with normal systolic function. Both atria were normal-sized. Aortic valve was trileaflet. There was no aortic stenosis. There was mild aortic insufficiency. There was trace mitral/tricuspid regurgitation. There was trace/physiologic pulmonary valve insufficiency. Right ventricular systolic pressure was assessed at 28 mm Hg (normal). There was no pericardial effusion. Patient is a 64-year-old female who presented with generalized weakness, low back pain, nonproductive cough and reported slurred speech. Patient is found to have rectal mass in the imaging with findings in favor of metastatic cancer in liver/lungs. There is question about bloody stool in the past 10 days. Patient has been seen by GI and is planning for endoscopy. No previous cardiac history. Baseline functional capacity up to few weeks back was acceptable and normal. He is found to have minimally elevated/flat troponin. Presentation is not considered acute coronary syndrome. The mild increase in troponin most likely reflects demand physiology at this point. Recognizing the presentation and comorbidities, ischemic workup is not indicated presently. Brain MRI questions CVA? Metastatic disease Low back pain Rectal mass Liver/lung metastases Abnormal troponin s/p liver biopsy Cardiac suggestion for management: Manage on telemetry Follow-up electrolytes and kidney function tests and correct abnormalities. Keep potassium above 4 and magnesium above 2 Recognizing the presentation and comorbidities, ischemic workup is not indicated presently. Cardiac-montelongo, the patient is considered low risk patient for low risk sigmoidoscopy/endoscopy/colonoscopy/needle biopsy procedures. Cardiac-montelongo, you can proceed with the procedures under appropriate intra and postoperative hemodynamic monitoring. Avoid hypotension Cardiac-montelongo, the patient is considered low risk patient for moderate risk laparoscopic diverting colostomy. Cardiac-montelongo, you can proceed with the procedures under appropriate intra and postoperative hemodynamic monitoring. Avoid hypotension Seen by Neurology Evaluation and management of reported slurred speech as per primary team. Cardiac montelongo, stable. Will sign off, please call for follow up PRN Evaluation and management of metastatic disease as per primary team/GI/Oncology Further evaluation and management depends on the above and clinical course A total of 55 minutes was spent reviewing the patient record, examining the patient, making a diagnostic and therapeutic plan, discussing this plan with medical personnel, following up on diagnostic studies and following the patient for clinical stability excluding any and all procedures. At least 50% of this time was spent in direct, [id number] contact. Thank you for allowing me to participate in this patient's care. Further recommendations will depend on patient's clinical course. Please do not hesitate to contact me if you have any questions or concerns. This medical document was created using electronic medical record system with [employer] computerized dictation system. Although this document has been carefully reviewed, there may still be some phonetic and typographical errors. These areas are purely typographical due to the imperfection of the software programs, and do not reflect any compromise in the patient's medical care. Dietary Evaluation Review Recommendations by RD: Increase Calorie Intake, Protein Supplementation Comments: 1) Ensure clear 240ml TID (Ordered per ONS protocol) 2) Advance to 2gm Na diet as medically fesible 3) Consider Ensure Enlive 240ml TID if diet advanced to full liquid or higher 4) Consider Megace 800mg/20ml daily if PO intake <50% 5) Continue to monitor Po intake, pertinent labs, skin status and weight trends prn. F/U in 2-3 days Expected Outcomes/Goals: PO intake to meet at least 75% estimated needs lab values to improve Food and Nutrition Intake (Sev: <50% est energy req 5days Interpretation of weight loss: >2% in 1 week Protein Calorie Malnutrition: Severe Is there a minimum of two crit: Yes Plan discussed with: Other (nurse) FARIDA MOTT MD Mar 14, 2025 08:20
[2025-03-14] MEDS: ONDANSETRON HCL 4 MG/2 ML VIAL IV PRN (09:12)
[2025-03-14] MEDS ORDERED: ASPirin 81 mg TAB PO SCH (10:00)
[2025-03-14] MEDS: ASPirin 325 MG TAB PO SCH (12:15)
--- NOTE | 2025-03-14 15:21 | DVHPN2 ---
Progress Note - Dictate Date Seen: Mar 14, 2025 Medical Necessity Reason Pt with a Central, PICC or Fol: No vital signs Vital Sign Date Time Temp Pulse Resp B/P (MAP) Pulse Ox O2 Delivery O2 Flow Rate FiO2 03/14/25 12:58 97.9 92 16 133/79 (97) 93 97.9 03/14/25 08:00 Nasal Cannula* 2 28 Total Intake and Output 03/13/25 03/13/25 03/14/25 15:00 23:00 07:00 Intake Total 410 ml 500 ml Balance 410 ml 500 ml medications Current Medications Medications Dose Ordered Sig/Pedro Route Start Time Stop Time Status Last Admin Dose Admin Sodium Chloride 1,000 ml @ 60 mls/hr [id number] IV 03/09/25 11:00 03/14/25 07:46 60 MLS/HR Acetaminophen/ Hydrocodone Bitart 1 tab Q4HP PRN PO 03/09/25 11:00 Hold 03/10/25 01:44 1 TAB Ondansetron HCl 4 mg Q4HP PRN IV 03/09/25 11:00 03/14/25 13:33 4 MG Morphine Sulfate 2 mg Q4HPRN PRN IV 03/09/25 11:00 Pantoprazole Sodium 40 mg DAILY IV 03/10/25 10:00 03/14/25 09:00 40 MG Diphenhydramine HCl 25 mg Q4HP PRN IV 03/09/25 17:00 03/09/25 17:01 25 MG Acetaminophen 650 mg Q4HP PRN PO 03/10/25 17:15 03/14/25 07:06 650 MG Aspirin 81 mg DAILY PO 03/14/25 10:00 Cancel Atorvastatin Calcium 20 mg HS PO 03/13/25 22:00 03/13/25 23:59 20 MG Aspirin 325 mg DAILY PO 03/14/25 10:00 03/14/25 12:15 325 MG objective General Appearance: alert, no distress HEENT: EOMI, PERRLA, normal external inspect of ears, no icterus, no nasal drainage Neck: no carotid bruit, no jugular venous distention (JVD), no lymphadenopathy Chest: normal thorax Respiratory: clear to auscultation, normal air movement Cardiovascular: regular rate and rhythm, no diastolic murmur, no jugular venous distention (JVD), no rub, no systolic murmur Abdominal: soft, no hepatomegaly, no mass, no splenomegaly, no tenderness Genitourinary: grossly normal external Musculoskeletal: no joint tenderness, no swelling Extremities: normal pulses, no calf tenderness, no clubbing, no cyanosis, no edema Skin: no bruising, no jaundice, no rash Neurological: alert, No focal deficit laboratory and microbiology Laboratory Tests 03/13/25 15:25 03/13/25 09:09 Test 03/13/25 15:25 Range/Units Serum Glucose 82 74-106 mg/dL Problem List 1. Intractable back pain Monitor, as needed pain meds 2. Hepatic metastatic disease Monitor, oncology consult, GI consult 3. Pulmonary Masses Monitor, tumor marker labs 4. Elevated troponin Monitor, cardiology consult, PPI, monitor EKG 5. Elevated liver enzymes Monitor, radiology consult for liver biopsy Assessment/Plan Subjective: Patient is awake and alert. Objective: Patient is [place]. Admitted for intractable abdominal pain. Status post liver biopsy, which revealed metastatic carcinoma favoring colorectal as the primary source. Status post colonoscopy and biopsies with obstructing rectal mass. Seen by general surgery; surgery is currently deferred due to positive MRI findings for CVA. Neurology has been consulted. Plan: Continue current treatment. Neurology recommended aspirin 325 mg daily and monitoring of neurostatus. Discharge planning underway. Dietary Evaluation Review Recommendations by RD: Increase Calorie Intake, Protein Supplementation Comments: 1) Ensure clear 240ml TID (Ordered per ONS protocol) 2) Advance to 2gm Na diet as medically fesible 3) Consider Ensure Enlive 240ml TID if diet advanced to full liquid or higher 4) Consider Megace 800mg/20ml daily if PO intake <50% 5) Continue to monitor Po intake, pertinent labs, skin status and weight trends prn. F/U in 2-3 days Expected Outcomes/Goals: PO intake to meet at least 75% estimated needs lab values to improve Food and Nutrition Intake (Sev: <50% est energy req 5days Interpretation of weight loss: >2% in 1 week Protein Calorie Malnutrition: Severe Is there a minimum of two crit: Yes Plan discussed with: Patient, Other JUDY JACK NP Mar 14, 2025 15:21
--- NOTE | 2025-03-14 23:06 | DVHPN2 ---
Progress Note - Dictate Date Seen: Mar 14, 2025 Medical Necessity Reason Pt with a Central, PICC or Fol: No Subjective Patient seen at bedside One bowel movement recorded She has generalized weakness, recent CVA the pathologist notified me that the liver mass biopsy was consistent with metastatic disease favoring colorectal primary Patient does have mild elevation in CEA but the extremely high number is of the CA 19 -9 [place] [id number] Patient does not have evidence of pancreatic malignancy on imaging vital signs Vital Sign Date Time Temp Pulse Resp B/P (MAP) Pulse Ox O2 Delivery O2 Flow Rate FiO2 03/14/25 17:00 98.0 88 15 129/82 (98) 97 98.0 03/14/25 08:00 Nasal Cannula* 2 28 Total Intake and Output 03/13/25 03/13/25 03/14/25 15:00 23:00 07:00 Intake Total 410 ml 500 ml Balance 410 ml 500 ml medications Current Medications Medications Dose Ordered Sig/Pedro Route Start Time Stop Time Status Last Admin Dose Admin Sodium Chloride 1,000 ml @ 60 mls/hr [id number] IV 03/09/25 11:00 03/14/25 07:46 60 MLS/HR Acetaminophen/ Hydrocodone Bitart 1 tab Q4HP PRN PO 03/09/25 11:00 Hold 03/10/25 01:44 1 TAB Ondansetron HCl 4 mg Q4HP PRN IV 03/09/25 11:00 03/14/25 19:29 4 MG Morphine Sulfate 2 mg Q4HPRN PRN IV 03/09/25 11:00 Pantoprazole Sodium 40 mg DAILY IV 03/10/25 10:00 03/14/25 09:00 40 MG Diphenhydramine HCl 25 mg Q4HP PRN IV 03/09/25 17:00 03/09/25 17:01 25 MG Acetaminophen 650 mg Q4HP PRN PO 03/10/25 17:15 03/14/25 20:40 650 MG Aspirin 81 mg DAILY PO 03/14/25 10:00 Cancel Atorvastatin Calcium 20 mg HS PO 03/13/25 22:00 03/13/25 23:59 20 MG Aspirin 325 mg DAILY PO 03/14/25 10:00 03/14/25 12:15 325 MG objective GENERAL:Normal, LUNGS:Normal, CVS:Normal, ABDOMEN:Normal, MSK:Normal, SKIN:Normal, NEURO:Abnormal (Left arm weakness) laboratory and microbiology Laboratory Tests 03/13/25 15:25 03/13/25 09:09 Test 03/13/25 15:25 Range/Units Serum Glucose 82 74-106 mg/dL Problems(with codes): (1) CVA (cerebral vascular accident) (2) Rectal mass (3) Metastatic neoplasm Prognosis Assessment plan Overall this patient's prognosis is very poor with evidence of metastatic disease favoring her rectosigmoid primary Recommend getting an Oncology consult if possible Otherwise this patient may end up being a hospice candidate based on the progressive disease and very high tumor marker suggestive of possible coexisting pancreatic cancer Dietary Evaluation Review Recommendations by RD: Increase Calorie Intake, Protein Supplementation Comments: 1) Ensure clear 240ml TID (Ordered per ONS protocol) 2) Advance to 2gm Na diet as medically fesible 3) Consider Ensure Enlive 240ml TID if diet advanced to full liquid or higher 4) Consider Megace 800mg/20ml daily if PO intake <50% 5) Continue to monitor Po intake, pertinent labs, skin status and weight trends prn. F/U in 2-3 days Expected Outcomes/Goals: PO intake to meet at least 75% estimated needs lab values to improve Food and Nutrition Intake (Sev: <50% est energy req 5days Interpretation of weight loss: >2% in 1 week Protein Calorie Malnutrition: Severe Is there a minimum of two crit: Yes Plan discussed with: Other (Dr Tobin Leigh) ROBERT LEIGH MD Mar 14, 2025 23:06
[2025-03-15] VITALS (8 sets, daily range): BP systolic 112–141; BP diastolic 67–82; PULSE 64–100; RESP 18–19; TEMP 97–98; O2SAT 90–100
[2025-03-15] MEDS: MORPHINE SULFATE INJ 2 MG/ml SYRG IV PRN (04:41)
[2025-03-15] MEDS ORDERED: APIX5TAB PO (11:09)
[2025-03-15] MEDS ORDERED: ATOR20TA50 PO (11:09)
[2025-03-15] MEDS ORDERED: PANT40TA2 PO (11:09)
--- NOTE | 2025-03-15 11:12 | DVHDS2 ---
Discharge Summary Date of Admission Mar 09, 2025 at 10:49 Date of Discharge: Mar 15, 2025 Labs/Diagnostic Data: Laboratory Results Test 03/14/25 06:15 03/13/25 15:25 03/13/25 09:09 03/09/25 13:03 Triglycerides Level 199 mg/dL (< 150) Cholesterol Level 170 mg/dL (< 200) LDL Cholesterol 84 mg/dL (< 100) HDL Cholesterol 38 mg/dL (40-59) Sodium Level 135 mmol/L (136-145) Potassium Level 3.1 mmol/L (3.5-5.1) Chloride Level 106 mmol/L (98-107) Carbon Dioxide Level 17 mmol/L (20-31) Anion Gap 12 (5-15) Blood Urea Nitrogen < 5 mg/dL (9-23) Creatinine 0.40 mg/dL (0.550-1.02) Glomerular Filtration Rate Calc 111 mL/min (>90) BUN/Creatinine Ratio 12.5 (10.0-20.0) Serum Glucose 82 mg/dL (74-106) Calcium Level 9.4 mg/dL (8.7-10.4) Total Bilirubin 1.4 mg/dL (0.2-1.0) Aspartate Amino Transferase (AST) 63 U/L (13-40) Alanine Aminotransferase (ALT) 66 U/L (7-40) Alkaline Phosphatase 403 U/L (46-116) Total Protein 6.3 g/dL (5.7-8.2) Albumin 4.0 g/dL (3.2-4.8) White Blood Count 12.6 10^3/uL (4.4-10.8) Red Blood Count 4.73 10^6/uL (4.0-5.20) Hemoglobin 13.4 g/dL (12.2-16.2) Hematocrit 40.9 % (36.0-46.0) Mean Corpuscular Volume 86.5 fL (80.0-100.0) Mean Corpuscular Hemoglobin 28.3 pg (28.0-32.0) Mean Corpuscular Hemoglobin Concent 32.7 g/dL (32.0-36.0) Red Cell Distribution Width 13.9 % (11.8-14.3) Platelet Count 226 10^3/uL (140-450) Mean Platelet Volume 7.3 fL (6.9-10.8) Neutrophils (%) (Auto) 78.3 % (37.0-80.0) Lymphocytes (%) (Auto) 6.3 % (10.0-50.0) Monocytes (%) (Auto) 5.2 % (0.0-12.0) Eosinophils (%) (Auto) 9.6 % (0.0-7.0) Basophils (%) (Auto) 0.6 % (0.0-2.0) Neutrophils # (Auto) 9.9 10 ^3/uL (1.6-8.6) Lymphocytes # (Auto) 0.8 10 ^3/uL (0.4-5.4) Monocytes # (Auto) 0.7 10 ^3/uL (0-1.3) Eosinophils # (Auto) 1.2 10 ^3/uL (0-0.8) Basophils # (Auto) 0.1 10 ^3/uL (0-0.2) Nucleated Red Blood Cells 0.0 % Magnesium Level 1.9 mg/dL (1.6-2.6) Prothrombin Time 11.4 sec (9.3-11.8) Prothrombin Time INR 1.08 (0.9-1.15) Activated Partial Thromboplast Time 29.1 SEC (24.5-34.5) Test 03/09/25 11:04 03/09/25 08:00 03/08/25 23:25 03/08/25 22:00 Tumor Marker Alpha Fetoprotein 5.6 ng/mL (0.0-9.2) Carcinoembryonic Antigen 9.04 ng/mL (<=5.0) CA 19-9 Antigen 30591 U/mL (0-35) Hepatitis A Antibody Total Positive (Negative) Hepatitis B Surface Antigen Negative (Negative) Hepatitis B Surface Antibody Positive (Negative) Hepatitis B Core Total Antibody Negative (Negative) Hepatitis C Antibody Negative (Negative) Urine Color Yellow (Yellow) Urine Clarity Turbid (Clear) Urine pH 6.0 (5.0-9.0) Urine Specific [place] 1.017 (1.001-1.035) Urine Protein Trace (Negative) Urine Ketones 3+ (Negative) Urine Blood Negative /uL (Negative) Urine Nitrite Negative (Negative) Urine Bilirubin Negative (Negative) Urine Urobilinogen 2 mg/dL (Negative) Urine Leukocyte Esterase Negative /uL (Negative) Urine RBC 5 /hpf (0 - 4) Urine Microscopic WBC 2 /HPF (0-5) Urine Squamous Epithelial Cells None seen /hpf (<5) Urine Bacteria None seen /hpf (None Seen) Urine Hyaline Casts Few /lpf (0 - 2) Urine Mucus Few (None Seen) Urine Glucose Normal mg/dL (Normal) Troponin I High Sensitivity 191 ng/L (</=34) POC Glucose 124 mg/dl (70-106) Other Laboratory Tests 03/13/25 15:25 03/13/25 09:09 Final Diagnosis/Problems List Metastatic liver cancer, primary source most likely colorectal rectal mass CVA 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 Patient was counseled about treatment plan, medications, possible side effects, patientverbalized understanding. All questions were answered to the best of my ability. 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
[2025-03-15] MEDS ORDERED: MORP-109 PO (12:21)
[2025-03-15] MEDS ORDERED: ZOFR4T PO (12:21)
[2025-03-15] MEDS ORDERED: SENN-58 PO (12:22)
[2025-03-15] MEDS ORDERED: NALO4SPR2 (12:22)
--- NOTE | 2025-03-15 20:33 | DVHPN2 ---
Progress Note - Dictate Date Seen: Mar 15, 2025 Medical Necessity Reason Pt with a Central, PICC or Fol: No Subjective Patient seen at bedside One bowel movement recorded She has generalized weakness, recent CVA the pathologist notified me that the liver mass biopsy was consistent with metastatic disease favoring colorectal primary Patient does have mild elevation in CEA but the extremely high number is of the [place] 19 -9 [place] [id number] Patient does not have evidence of pancreatic malignancy on imaging vital signs Vital Sign Date Time Temp Pulse Resp B/P (MAP) Pulse Ox O2 Delivery O2 Flow Rate FiO2 03/15/25 18:46 84 16 120/77 03/15/25 17:24 98.0 98 98.0 03/15/25 08:00 Nasal Cannula* 2 28 Total Intake and Output 03/14/25 03/14/25 03/15/25 15:00 23:00 07:00 Intake Total 800 ml 1500 ml Balance 800 ml 1500 ml medications Current Medications Medications Dose Ordered Sig/Pedro Route Start Time Stop Time Status Last Admin Dose Admin Sodium Chloride 1,000 ml @ 60 mls/hr [id number] IV 03/09/25 11:00 03/14/25 07:46 60 MLS/HR Acetaminophen/ Hydrocodone Bitart 1 tab Q4HP PRN PO 03/09/25 11:00 Hold 03/10/25 01:44 1 TAB Ondansetron HCl 4 mg Q4HP PRN IV 03/09/25 11:00 03/15/25 18:46 4 MG Morphine Sulfate 2 mg Q4HPRN PRN IV 03/09/25 11:00 03/15/25 18:46 2 MG Pantoprazole Sodium 40 mg DAILY IV 03/10/25 10:00 03/15/25 11:19 40 MG Diphenhydramine HCl 25 mg Q4HP PRN IV 03/09/25 17:00 03/09/25 17:01 25 MG Acetaminophen 650 mg Q4HP PRN PO 03/10/25 17:15 03/15/25 16:48 650 MG Aspirin 81 mg DAILY PO 03/14/25 10:00 Cancel Atorvastatin Calcium 20 mg HS PO 03/13/25 22:00 03/14/25 23:27 20 MG Apixaban 5 mg BID PO 03/15/25 22:00 objective GENERAL:Normal, LUNGS:Normal, CVS:Normal, ABDOMEN:Normal, MSK:Normal, SKIN:Normal, NEURO:Abnormal (Left arm weakness) laboratory and microbiology Laboratory Tests 03/13/25 15:25 03/13/25 09:09 Test 03/13/25 15:25 Range/Units Serum Glucose 82 74-106 mg/dL Problems(with codes): (1) CVA (cerebral vascular accident) (2) Rectal mass (3) Metastatic neoplasm Prognosis Assessment plan Overall this patient's prognosis is very poor with evidence of metastatic disease favoring her rectosigmoid primary Recommend getting an Oncology consult if possible Otherwise this patient may end up being a hospice candidate based on the progressive disease and very high tumor marker suggestive of possible coexisting pancreatic cancer Discharge planning is in progress to home, pediatric social worker arranging DME Dietary Evaluation Review Recommendations by RD: Increase Calorie Intake, Protein Supplementation Comments: 1) Ensure clear 240ml TID (Ordered per ONS protocol) 2) Advance to 2gm Na diet as medically fesible 3) Consider Ensure Enlive 240ml TID if diet advanced to full liquid or higher 4) Consider Megace 800mg/20ml daily if PO intake <50% 5) Continue to monitor Po intake, pertinent labs, skin status and weight trends prn. F/U in 2-3 days Expected Outcomes/Goals: PO intake to meet at least 75% estimated needs lab values to improve Food and Nutrition Intake (Sev: <50% est energy req 5days Interpretation of weight loss: >2% in 1 week Protein Calorie Malnutrition: Severe Is there a minimum of two crit: Yes Plan discussed with: ROBERT Corcoran MD Mar 15, 2025 20:33
--- NOTE | 2025-03-15 21:48 | DVHPN2 ---
Progress Note - Dictate Date Seen: Mar 15, 2025 Medical Necessity Reason Pt with a Central, PICC or Fol: No vital signs Vital Sign Date Time Temp Pulse Resp B/P (MAP) Pulse Ox O2 Delivery O2 Flow Rate FiO2 03/15/25 18:46 84 16 120/77 03/15/25 17:24 98.0 98 98.0 03/15/25 08:00 Nasal Cannula* 2 28 Total Intake and Output 03/14/25 03/14/25 03/15/25 15:00 23:00 07:00 Intake Total 800 ml 1500 ml Balance 800 ml 1500 ml medications Current Medications Medications Dose Ordered Sig/Pedro Route Start Time Stop Time Status Last Admin Dose Admin Sodium Chloride 1,000 ml @ 60 mls/hr [id number] IV 03/09/25 11:00 03/14/25 07:46 60 MLS/HR Acetaminophen/ Hydrocodone Bitart 1 tab Q4HP PRN PO 03/09/25 11:00 Hold 03/10/25 01:44 1 TAB Ondansetron HCl 4 mg Q4HP PRN IV 03/09/25 11:00 03/15/25 18:46 4 MG Morphine Sulfate 2 mg Q4HPRN PRN IV 03/09/25 11:00 03/15/25 18:46 2 MG Pantoprazole Sodium 40 mg DAILY IV 03/10/25 10:00 03/15/25 11:19 40 MG Diphenhydramine HCl 25 mg Q4HP PRN IV 03/09/25 17:00 03/09/25 17:01 25 MG Acetaminophen 650 mg Q4HP PRN PO 03/10/25 17:15 03/15/25 20:56 650 MG Aspirin 81 mg DAILY PO 03/14/25 10:00 Cancel Atorvastatin Calcium 20 mg HS PO 03/13/25 22:00 03/14/25 23:27 20 MG Apixaban 5 mg BID PO 03/15/25 22:00 objective General Appearance: alert, no distress HEENT: EOMI, PERRLA, normal external inspect of ears, no icterus, no nasal drainage Neck: no carotid bruit, no jugular venous distention (JVD), no lymphadenopathy Chest: normal thorax Respiratory: clear to auscultation, normal air movement Cardiovascular: regular rate and rhythm, no diastolic murmur, no jugular venous distention (JVD), no rub, no systolic murmur Abdominal: soft, no hepatomegaly, no mass, no splenomegaly, no tenderness Genitourinary: grossly normal external Musculoskeletal: no joint tenderness, no swelling Extremities: normal pulses, no calf tenderness, no clubbing, no cyanosis, no edema Skin: no bruising, no jaundice, no rash Neurological: alert, No focal deficit laboratory and microbiology Laboratory Tests 03/13/25 15:25 03/13/25 09:09 Test 03/13/25 15:25 Range/Units Serum Glucose 82 74-106 mg/dL Problem List 1. Intractable back pain Monitor, as needed pain meds 2. Hepatic metastatic disease Monitor, oncology consult, GI consult 3. Pulmonary Masses Monitor, tumor marker labs 4. Elevated troponin Monitor, cardiology consult, PPI, monitor EKG 5. Elevated liver enzymes Monitor, radiology consult for liver biopsy 6. NSTEMI type II (most likely d/t cancer) Monitor 7. Acute CVA (most likely d/t coagulopathy from cancer) Monitor 8. Coagulopathy Monitor Assessment/Plan Subjective: Patient is awake and alert. Objective: I spoke with patient and patient's son at length. Patient speaks Ukrainian, son was translating. Patient was admitted for intractable abdominal pain. Patient was found to have metastatic liver cancer, primary source most likely colorectal. Patient is status post liver biopsy. Patient also found to have lung masses. Patient is still having some abdominal pain. Patient has been cleared for discharge. CEA and CA19 are elevated. Patient was transition to Eliquis 5 mg p.o. twice daily. She was seen by telemetry neuro. Patient has a rectal mass. Unable to do surgery due to recent CVA. I had discussed plan of care with Dr. Sun Hernandez and she will follow-up with patient outpatient. I discussed this at length with patient and her son. Per her son they will change her PCP immediately after discharge. Patient is having some chronic pain. She is requesting MS Contin outpatient and Zofran. Plan: Arrange for home health and DME and home O2. Sent pain medication. Plan for discharge possibly tomorrow if all arrangements have been made. Dietary Evaluation Review Recommendations by RD: Increase Calorie Intake, Protein Supplementation Comments: 1) Ensure clear 240ml TID (Ordered per ONS protocol) 2) Advance to 2gm Na diet as medically fesible 3) Consider Ensure Enlive 240ml TID if diet advanced to full liquid or higher 4) Consider Megace 800mg/20ml daily if PO intake <50% 5) Continue to monitor Po intake, pertinent labs, skin status and weight trends prn. F/U in 2-3 days Expected Outcomes/Goals: PO intake to meet at least 75% estimated needs lab values to improve Food and Nutrition Intake (Sev: <50% est energy req 5days Interpretation of weight loss: >2% in 1 week Protein Calorie Malnutrition: Severe Is there a minimum of two crit: Yes Plan discussed with: Patient, Other JUDY JACK PAIL TESTER Mar 15, 2025 21:48
[2025-03-15] MEDS: APIXABAN 5 MG TAB PO SCH (21:56)
[2025-03-16 01:00] VITALS: BP 126/67; PULSE 71; RESP 18; TEMP 98.3; O2SAT 98
[2025-03-16 05:00] VITALS: BP 128/82; PULSE 87; RESP 18; TEMP 98.1; O2SAT 95
[2025-03-16 08:33] VITALS: BP 134/79; PULSE 81; RESP 18; TEMP 98.4; O2SAT 97
[2025-03-16] MEDS ORDERED: MORP-110 PO ×2 (10:35→11:19)
--- NOTE | 2025-03-16 10:36 | DVHDS2 ---
Discharge Summary Date of Admission Mar 09, 2025 at 10:49 Date of Discharge: Mar 16, 2025 Labs/Diagnostic Data: Laboratory Results Test 03/14/25 06:15 03/13/25 15:25 03/13/25 09:09 03/09/25 13:03 Triglycerides Level 199 mg/dL (< 150) Cholesterol Level 170 mg/dL (< 200) LDL Cholesterol 84 mg/dL (< 100) HDL Cholesterol 38 mg/dL (40-59) Sodium Level 135 mmol/L (136-145) Potassium Level 3.1 mmol/L (3.5-5.1) Chloride Level 106 mmol/L (98-107) Carbon Dioxide Level 17 mmol/L (20-31) Anion Gap 12 (5-15) Blood Urea Nitrogen < 5 mg/dL (9-23) Creatinine 0.40 mg/dL (0.550-1.02) Glomerular Filtration Rate Calc 111 mL/min (>90) BUN/Creatinine Ratio 12.5 (10.0-20.0) Serum Glucose 82 mg/dL (74-106) Calcium Level 9.4 mg/dL (8.7-10.4) Total Bilirubin 1.4 mg/dL (0.2-1.0) Aspartate Amino Transferase (AST) 63 U/L (13-40) Alanine Aminotransferase (ALT) 66 U/L (7-40) Alkaline Phosphatase 403 U/L (46-116) Total Protein 6.3 g/dL (5.7-8.2) Albumin 4.0 g/dL (3.2-4.8) White Blood Count 12.6 10^3/uL (4.4-10.8) Red Blood Count 4.73 10^6/uL (4.0-5.20) Hemoglobin 13.4 g/dL (12.2-16.2) Hematocrit 40.9 % (36.0-46.0) Mean Corpuscular Volume 86.5 fL (80.0-100.0) Mean Corpuscular Hemoglobin 28.3 pg (28.0-32.0) Mean Corpuscular Hemoglobin Concent 32.7 g/dL (32.0-36.0) Red Cell Distribution Width 13.9 % (11.8-14.3) Platelet Count 226 10^3/uL (140-450) Mean Platelet Volume 7.3 fL (6.9-10.8) Neutrophils (%) (Auto) 78.3 % (37.0-80.0) Lymphocytes (%) (Auto) 6.3 % (10.0-50.0) Monocytes (%) (Auto) 5.2 % (0.0-12.0) Eosinophils (%) (Auto) 9.6 % (0.0-7.0) Basophils (%) (Auto) 0.6 % (0.0-2.0) Neutrophils # (Auto) 9.9 10 ^3/uL (1.6-8.6) Lymphocytes # (Auto) 0.8 10 ^3/uL (0.4-5.4) Monocytes # (Auto) 0.7 10 ^3/uL (0-1.3) Eosinophils # (Auto) 1.2 10 ^3/uL (0-0.8) Basophils # (Auto) 0.1 10 ^3/uL (0-0.2) Nucleated Red Blood Cells 0.0 % Magnesium Level 1.9 mg/dL (1.6-2.6) Prothrombin Time 11.4 sec (9.3-11.8) Prothrombin Time INR 1.08 (0.9-1.15) Activated Partial Thromboplast Time 29.1 SEC (24.5-34.5) Test 03/09/25 11:04 03/09/25 08:00 03/08/25 23:25 03/08/25 22:00 Tumor Marker Alpha Fetoprotein 5.6 ng/mL (0.0-9.2) Carcinoembryonic Antigen 9.04 ng/mL (<=5.0) CA 19-9 Antigen 54770 U/mL (0-35) Hepatitis A Antibody Total Positive (Negative) Hepatitis B Surface Antigen Negative (Negative) Hepatitis B Surface Antibody Positive (Negative) Hepatitis B Core Total Antibody Negative (Negative) Hepatitis C Antibody Negative (Negative) Urine Color Yellow (Yellow) Urine Clarity Turbid (Clear) Urine pH 6.0 (5.0-9.0) Urine Specific [place] 1.017 (1.001-1.035) Urine Protein Trace (Negative) Urine Ketones 3+ (Negative) Urine Blood Negative /uL (Negative) Urine Nitrite Negative (Negative) Urine Bilirubin Negative (Negative) Urine Urobilinogen 2 mg/dL (Negative) Urine Leukocyte Esterase Negative /uL (Negative) Urine RBC 5 /hpf (0 - 4) Urine Microscopic WBC 2 /HPF (0-5) Urine Squamous Epithelial Cells None seen /hpf (<5) Urine Bacteria None seen /hpf (None Seen) Urine Hyaline Casts Few /lpf (0 - 2) Urine Mucus Few (None Seen) Urine Glucose Normal mg/dL (Normal) Troponin I High Sensitivity 191 ng/L (</=34) POC Glucose 124 mg/dl (70-106) Other Laboratory Tests 03/13/25 15:25 03/13/25 09:09 Brief Hx & Hospital Course: Patient is a 64-year-old female, BIBA , and with her with a chief complaint of generalized weakness. reports that starting today patient has been experiencing generalized weakness with associated back pain from previous herniated disc, left-sided weakness/numbness, and a cough. states he called 911 for assistance because he was worried for a stroke. Patient denies any tingling, shortness of breath, chest pain, headache, dizziness, N/V/D. While in the emergency department the patient was evaluated by the provider, As per provider: Labs, vital signs, and imagining monitored. Patient was admitted on March 09, 2025 for intractable abdominal pain. Patient was found to have enumerable innumerable hepatic lesions as well as pulmonary lesions. I did discuss plan of care with Doctor Rock who states she was unable to see the patient in the hospital, however, she did give her recommendations for a liver biopsy and to be evaluated by GI with a possible colonoscopy and to obtain tumor marker labs. Liver biopsy was done. It was suspicious for a colorectal carcinoma as its primary source. Patient is status post colonoscopy biopsy. Biopsy was done. Patient had intractable pain. She was started on IV morphine and was transitioned to MS CONTIN. Patient had intermittent nausea. She was discharged home on Zofran. Patient was needing oxygen and arrange home health was arranged for PT as well as DME equipment with oxygen. Patient was instructed to follow up with their PCP. Doctor Rock also will be following up outpatient to start oncology evaluation. Patient instructed to follow up CYNDI with their PCP to obtain a referral for oncology outpatient. There were no complaints or new complaints upon discharge, all questions and concerns were answered. Patient was advised to return to the ER or call 911 if any headaches, dizziness, shortness of breath, chest pain, bleeding, fevers, or worsening of medical condition. Patient/Family was counseled about treatment plan, medications, possible side effects, patientverbalized understanding. All questions were answered to the best of my ability. The patient symptoms improved and they are okay to be DC. Condition at Discharge: Stable Final Diagnosis/Problems List Metastatic liver cancer, primary source most likely colorectal rectal mass coagulapathy due to cancer pulmonary masses Discharge Disposition: Home Discharge Instruct/Medications Diet: Cardiac 2g Na,low cholest Activity: No Restrictions, As Tolerated Follow Up/Referral: pcp cyndi Medications: as prescribed Discharge Statement: "Patient was advised to return to the ER or call 911 if any headaches, dizziness, shortness of breath, chest pain, abdominal pain, bleeding, fevers, or worsening of medical condition. Patient was counseled about treatment plan, medications, possible side effects, patientverbalized understanding. All questions were answered to the best of my ability. This discharge took greater then 30 minutes in planning, reviewing documentation, counseling the patient, and discussing with other team members." ASSESSMENT ASSESSMENT Assessment Metastatic liver cancer, primary source most likely colorectal rectal mass CVA coagulopathy due to cancer JUDY JACK NP Mar 16, 2025 10:36
[2025-03-16 12:28] VITALS: BP 134/80; PULSE 67; RESP 20; TEMP 97.8; O2SAT 96
[2025-03-16 14:10] VITALS: BP 112/76; PULSE 79; RESP 20
--- NOTE | 2025-03-16 14:53 | DVHPN2 ---
Progress Note - Dictate Date Seen: Mar 16, 2025 Medical Necessity Reason Pt with a Central, PICC or Fol: No Subjective Rectal biopsies as per the pathologist showed poorly differentiated carcinoma awaiting final immunostains the pathologist notified me that the liver mass biopsy was consistent with metastatic disease favoring colorectal primary Patient does have mild elevation in CEA but the extremely high number is of the CA 19 -9 which [place] [id number] Patient does not have evidence of pancreatic malignancy on imaging vital signs Vital Sign Date Time Temp Pulse Resp B/P (MAP) Pulse Ox O2 Delivery O2 Flow Rate FiO2 03/16/25 13:28 67 20 134/80 03/16/25 12:28 97.8 96 97.8 03/16/25 07:30 Nasal Cannula* 1 24 Total Intake and Output 03/15/25 03/15/25 03/16/25 15:00 23:00 07:00 Intake Total 400 ml 1370 ml Balance 400 ml 1370 ml medications Current Medications Medications Dose Ordered Sig/Pedro Route Start Time Stop Time Status Last Admin Dose Admin Sodium Chloride 1,000 ml @ 60 mls/hr [id number] IV 03/09/25 11:00 03/16/25 04:38 60 MLS/HR Acetaminophen/ Hydrocodone Bitart 1 tab Q4HP PRN PO 03/09/25 11:00 Hold 03/10/25 01:44 1 TAB Ondansetron HCl 4 mg Q4HP PRN IV 03/09/25 11:00 03/15/25 22:45 4 MG Morphine Sulfate 2 mg Q4HPRN PRN IV 03/09/25 11:00 03/16/25 13:28 2 MG Pantoprazole Sodium 40 mg DAILY IV 03/10/25 10:00 03/16/25 08:23 40 MG Diphenhydramine HCl 25 mg Q4HP PRN IV 03/09/25 17:00 03/09/25 17:01 25 MG Acetaminophen 650 mg Q4HP PRN PO 03/10/25 17:15 03/16/25 08:24 650 MG Aspirin 81 mg DAILY PO 03/14/25 10:00 Cancel Atorvastatin Calcium 20 mg HS PO 03/13/25 22:00 03/15/25 21:56 20 MG Apixaban 5 mg BID PO 03/15/25 22:00 03/16/25 08:24 5 MG objective GENERAL:Normal, LUNGS:Normal, CVS:Normal, ABDOMEN:Normal, MSK:Normal, SKIN:Normal, NEURO:Abnormal (Left arm weakness) laboratory and microbiology Laboratory Tests 03/13/25 15:25 03/13/25 09:09 Test 03/13/25 15:25 Range/Units Serum Glucose 82 74-106 mg/dL Problems(with codes): (1) Elevated CA 19-9 level (2) Metastatic neoplasm (3) Rectal mass (4) Colorectal carcinoma (5) CVA (cerebral vascular accident) Prognosis Assessment plan Overall this patient's prognosis is very poor with evidence of metastatic disease favoring her rectosigmoid primary Recommend getting an Oncology consult if possible Otherwise this patient may end up being a hospice candidate based on the progressive disease and very high tumor marker suggestive of possible coexisting pancreatic cancer Discharge planning is in progress to home, social media manager arranging DME Dietary Evaluation Review Recommendations by RD: Increase Calorie Intake, Protein Supplementation Comments: 1) Ensure clear 240ml TID (Ordered per ONS protocol) 2) Advance to 2gm Na diet as medically fesible 3) Consider Ensure Enlive 240ml TID if diet advanced to full liquid or higher 4) Consider Megace 800mg/20ml daily if PO intake <50% 5) Continue to monitor Po intake, pertinent labs, skin status and weight trends prn. F/U in 2-3 days Expected Outcomes/Goals: PO intake to meet at least 75% estimated needs lab values to improve Food and Nutrition Intake (Sev: <50% est energy req 5days Interpretation of weight loss: >2% in 1 week Protein Calorie Malnutrition: Severe Is there a minimum of two crit: Yes Plan discussed with: Son, Other ROBERT RAMIREZ MD Mar 16, 2025 14:53
== END 2025-03-16 15:15 | disposition home or self-care (01) | DRG 45 ==
LOC: ER 20:08 → EDBD 20:08 → OVERFLOW 03-09 10:49 → WEST WING 03-09 23:48
PROVIDERS: ADMIT Nurse Practitioner; ATTEND Nurse Practitioner
PROC: 0FB13ZX Excision of Right Lobe Liver, Percutaneous Approach, Diagnostic (ICD-10-PCS; principal; 2025-03-10)
PROC: 0DBN8ZX Excision of Sigmoid Colon, Via Natural or Artificial Opening Endoscopic, Diagnostic (ICD-10-PCS; 2025-03-11)
DX: I63.9 Cerebral infarction, unspecified (principal); G93.41 Metabolic encephalopathy; E43 Unspecified severe protein-calorie malnutrition; I21.A1 Myocardial infarction type 2; D68.4 Acquired coagulation factor deficiency; C78.00 Secondary malignant neoplasm of unspecified lung; C78.7 Secondary malignant neoplasm of liver and intrahepatic bile duct; G89.29 Other chronic pain; M54.50 Low back pain, unspecified; Z82.5 Family history of asthma and other chronic lower respiratory diseases; Z82.62 Family history of osteoporosis; Z86.73 Personal history of transient ischemic attack (TIA), and cerebral infarction without residual deficits; Z93.3 Colostomy status; Z68.21 Body mass index [BMI] 21.0-21.9, adult; R91.8 Other nonspecific abnormal finding of lung field
CPT/HCPCS: 36415; 70450; 70551; 71045; 71250; 74176; 76705; 76942; 78306; 80048; 80053; 80061; 81001; 82105; 82378; 82962; 83735; 84484; 85025; 85610; 85730; 86301; 86704; 86706; 86708; 86803; 86850; 86900; 86901; 87340; 93005; 93306; 97110; 97116; 97163; G0378; J2250; J2405; J2470; J2704

== ENCOUNTER 2025-03-26 02:35 | Inpatient (IN) | payer MEDICAID ==
[~2025-03-26] VITALS: Ht 154.9 cm; Wt 56.3 kg
[2025-03-26] VITALS (17 sets, daily range): BP systolic 97–118; BP diastolic 57–83; PULSE 85–112; RESP 11–22; TEMP 97.2–98.6; O2SAT 94–100
[~2025-03-26 02:35] MED LIST: APIX5TAB PO; ATOR20TA50 PO; MORP-110 PO; NALO4SPR2; PANT40TA2 PO; SENN-58 PO; ZOFR4T PO
--- NOTE | 2025-03-26 03:01 | ED.PDOC ---
History of Present Illness HPI Comments 64-year-old female came your via EMS for hypotension. Patient was discharged your 10 days ago and was diagnosed with1. Metastatic liver cancer, primary source most likely colorectal, 2. rectal mass, 3. coagulopathy due to cancer, 4. pulmonary masses. Patient currently on Eliquis. Per EMS, was going to the bathroom earlier, when she felt dizzy, lightheaded, weak, and she fell backwards fortunately family members were able to catch her as she fell. One scene, patient hypotensive systolic BP 80s, tachycardic at 120's, and saturating 85% on room air. Family member stated that for the past 2 days, patient has been passing black tarry stools. Chief Complaint: Hypotension Time Seen by MD: 03:01 Reviewed Notes: Art Glass Designer Notes Allergies: Coded Allergies: NO KNOWN ALLERGIES (Unverified , 03/08/25) Home Meds Active Scripts Morphine Sulfate (Ms Contin) 30 Mg Tab, 1 TAB PO DAILY for 30 Days, #30 TAB Prov:JUDY JACK NP 03/16/25 Naloxone HCl (Narcan) 4 Mg/0.1 Ml Spr, 4 MG NA UD for 30 Days, #1 SPRAY Prov:JUDY JACK NP 03/15/25 Senna (Senokot) 8.6 Mg Tab, 1 TAB PO BID for 30 Days, #60 TAB Prov:JUDY JACK NP 03/15/25 Ondansetron Odt 4MG Tab (ZOFRAN PO) 4 Mg Tb, 4 MG PO Q6HP PRN for 30 Days, #120 TAB ODT TAB-DISSOLVE IN MOUTH, THEN SWALLOW Prov:JUDY JACK NP 03/15/25 Apixaban Base (ELIQUIS) 5 Mg Tab, 5 MG PO BID for 30 Days, #60 TAB Prov:JUDY JACK NP 03/15/25 Pantoprazole Sodium Sesquihydr (Protonix) 40 Mg Tab, 40 MG PO DAILY, #30 TAB Prov:JUDY JACK NP 03/15/25 Atorvastatin Calcium (ATORVASTATIN CALCIUM) 20 Mg Tab, 20 MG PO HS for 30 Days, #30 TAB Prov:JUDY JACK NP 03/15/25 Information Source: Emergency Med Personnel Mode of Arrival: EMS Severity: Severe Timing: Minutes Duration: Since onset Prehospital treatment: IVF Past Medical History PAST MEDICAL HISTORY: Cancer Past Medical History (Other): Metastatic cancer Surgical History: Denies all surgeries 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 BOOM CRANE OPERATOR Hx Family History Family History: Reviewed,noncontributory to illness Social History Smoker: Non-Smoker Alcohol: Denies ETOH Use Drugs: Denies Drug Use Lives In: Home Unable to Obtain due to: Altered Mental Status, Other Physical Exam General Appearance: Moderate Distress HEENT: Pale [place] (L), Pale [place] (R) Neck: Full Range of Motion, Non-Tender, Normal, Normal Inspection Respiratory: Chest Non-Tender, Lungs Clear, No Accessory Muscle Use, No Respiratory Distress, Normal Breath Sounds Cardiovascular: No Edema, No JVD, No Murmur, No Gallop, Normal Peripheral Pulses, Regular Rate/Rhythm Breast Exam: Deferred Gastrointestinal: No Organomegaly, Non Tender, No Pulsatile Mass, Normal Bowel Sounds, Soft Genitalia: Deferred Pelvic: Deferred Rectal: Deferred Extremities: No calf tenderness, Normal capillary refill, Normal inspection, Normal range of motion, Non-tender, No pedal edema Musculoskeletal : Apperance: Normal Neurologic: Alert, court bailiff or sheriff II-XII nml as Tested, No Motor Deficits, Normal Affect, Normal Mood, No Sensory Deficits Cerebellar Function: Normal Reflexes: Normal Skin: Dry, Normal Color, Warm Lymphatic: No Adenopathy Was a procedure done? Was a procedure done?: No Differential Dx Considerations may include: Anemia, electrolyte imbalance, GI bleed, metastatic cancer X-Ray, Labs, Meds, VS Vital Signs Date Time Temp Pulse Resp B/P (MAP) Pulse Ox O2 Delivery O2 Flow Rate FiO2 03/26/25 03:08 98.6 111 20 111/71 (84) 94 98.6 03/26/25 02:49 101 03/26/25 02:45 109 21 99 Nasal Cannula* 4 36 03/26/25 02:45 98.7 109 21 111/71 (84) 99 98.7 Lab Test 03/26/25 03:05 03/26/25 02:53 Range/Units Urine Color Yellow Yellow Urine Clarity Clear Clear Urine pH 6.0 5.0-9.0 Urine Specific [place] 1.025 1.001-1.035 Urine Protein Negative Negative Urine Ketones Negative Negative Urine Blood Negative Negative /uL Urine Nitrite Negative Negative Urine Bilirubin Negative Negative Urine Urobilinogen 3 H Negative mg/dL Urine Leukocyte Esterase Negative Negative /uL Urine RBC None seen 0 - 4 /hpf Urine Microscopic WBC 4 0-5 /HPF Urine Squamous Epithelial Cells None seen <5 /hpf Urine Bacteria None seen None Seen /hpf Urine Hyaline Casts Many 0 - 2 /lpf Urine Mucus Few None Seen Urine Glucose Normal Normal mg/dL White Blood Count 17.0 H 4.4-10.8 10^3/uL Red Blood Count 2.54 L 4.0-5.20 10^6/uL Hemoglobin 7.2 L 12.2-16.2 g/dL Hematocrit 21.3 L 36.0-46.0 % Mean Corpuscular Volume 83.8 80.0-100.0 fL Mean Corpuscular Hemoglobin 28.5 28.0-32.0 pg Mean Corpuscular Hemoglobin Concent 34.0 32.0-36.0 g/dL Red Cell Distribution Width 15.2 H 11.8-14.3 % Platelet Count 290 140-450 10^3/uL Mean Platelet Volume 7.1 6.9-10.8 fL Neutrophils (%) (Auto) 88.9 H 37.0-80.0 % Lymphocytes (%) (Auto) 6.3 L 10.0-50.0 % Monocytes (%) (Auto) 3.9 0.0-12.0 % Eosinophils (%) (Auto) 0.6 0.0-7.0 % Basophils (%) (Auto) 0.3 0.0-2.0 % Neutrophils # (Auto) 15.1 H 1.6-8.6 10 ^3/uL Lymphocytes # (Auto) 1.1 0.4-5.4 10 ^3/uL Monocytes # (Auto) 0.7 0-1.3 10 ^3/uL Eosinophils # (Auto) 0.1 0-0.8 10 ^3/uL Basophils # (Auto) 0.1 0-0.2 10 ^3/uL Nucleated Red Blood Cells 0.0 % Prothrombin Time 14.9 H 9.3-11.8 sec Prothrombin Time INR 1.46 H 0.9-1.15 Activated Partial Thromboplast Time 30.6 24.5-34.5 SEC Sodium Level 131 L 136-145 mmol/L Potassium Level 3.1 L 3.5-5.1 mmol/L Chloride Level 90 L 98-107 mmol/L Carbon Dioxide Level 31 20-31 mmol/L Anion Gap 10 5-15 Blood Urea Nitrogen 33 H 9-23 mg/dL Creatinine 0.51 L 0.550-1.02 mg/dL Glomerular Filtration Rate Calc 105 >90 mL/min BUN/Creatinine Ratio 64.7 H 10.0-20.0 Serum Glucose 135 H 74-106 mg/dL Calcium Level 7.9 L 8.7-10.4 mg/dL Magnesium Level 2.0 1.6-2.6 mg/dL Total Bilirubin 0.5 0.2-1.0 mg/dL Aspartate Amino Transferase (AST) 55 H 13-40 U/L Alanine Aminotransferase (ALT) 31 7-40 U/L Alkaline Phosphatase 520 H 46-116 U/L Total Protein 4.5 L 5.7-8.2 g/dL Albumin 2.6 L 3.2-4.8 g/dL Current Medications Medications (Trade) Dose Ordered Sig/Pedro Route Start Time Stop Time Status Last Admin Sodium Chloride 1,000 ml @ 1,000 mls/hr Q1H ONCE IVB 03/26/25 02:45 03/26/25 03:44 DC 03/26/25 03:13 Time of 1ST Reevaluation: 02:59 Reevaluation 1ST: Unchanged Patient Education/Counseling: Pt Unresponsive (Unresponsive to verbal stimuli) Family Education/Counseling: No Family Present Departure 1 Departure Time of Disposition: 04:31 Impression: Primary Impression: Colorectal carcinoma Additional Impressions: Rectal mass GI bleed Disposition: ADMITTED INPATIENT Condition: Guarded Discharged With: Self, Relative, Spouse Comments Syncope and GI Bleeding in Setting of Metastatic Colon Cancer Chief Complaint: Syncope History of Present Illness: 64-year-old female with recently diagnosed metastatic colon cancer and recent stroke on Eliquis presents to the ED after a syncopal episode at home. Per the patient's son, while assisting the patient to the bathroom, her legs gave out, she slumped to the ground, and her eyes rolled back. Upon EMS arrival to the ED, patient appeared pale. Rectal exam revealed dark red blood. Patient was found to be significantly anemic with evidence of electrolyte abnormalities. Review of Systems: Constitutional: Weakness, syncope Gastrointestinal: Rectal bleeding All other systems reviewed and negative Medications: Eliquis (started a few weeks ago) Allergies: No known allergies Past Medical History: 1. Metastatic colon cancer with liver metastasis, recently diagnosed 2. Recent stroke 3. Hypokalemia 4. Hyponatremia Physical Exam: General: Patient appears pale Rectal: Dark red blood present on examination Lab Results: CBC: - Hemoglobin: 7.2 - Hematocrit: 21.3 - WBC: 17, 000 Chemistry: - Sodium: 131 - Potassium: 3.1 - BUN: 33 - Creatinine: 0.5 - Alkaline phosphatase: 520 - Total bilirubin: 0.5 Imaging and Other Relevant Results: Chest X-ray: Multifocal nodular opacities consistent with known lung metastases Medical Decision Making: Summary Statement: 64-year-old female with metastatic colon cancer on Eliquis for recent stroke presents with syncope and active GI bleeding, found to be significantly anemic with electrolyte abnormalities. Problem List: 1. Acute GI bleeding 2. Severe anemia 3. Syncope 4. Electrolyte abnormalities (hypokalemia, hyponatremia) 5. Metastatic colon cancer Differential Diagnosis: 1. GI bleeding secondary to malignancy 2. Anticoagulation-related bleeding 3. Orthostatic hypotension 4. Cardiogenic syncope 5. Volume depletion ED Course: Patient evaluated for acute blood loss anemia and syncope. Labs reveal severe anemia and electrolyte abnormalities. Patient requires admission for blood transfusion, GI consultation for bleeding management, and oncology consultation. Assessment and Plan: 1. Acute GI Bleeding with Severe Anemia: - Admit to hospital - Blood transfusion - Hold Eliquis - GI consultation for endoscopic evaluation 2. Metastatic Colon Cancer: - Oncology consultation - Continue established treatment plan 3. Electrolyte Abnormalities: - Electrolyte replacement - Serial monitoring 4. Disposition: Admit to medical floor with telemetry monitoring Billing Information: ICD-10: R55 - Syncope and collapse ICD-10: K92.1 - [place] ICD-10: C18.9 - Malignant neoplasm of colon, unspecified ICD-10: D64.9 - Anemia, unspecified ICD-10: E87.1 - Hypo-osmolality and hyponatremia ICD-10: E87.6 - Hypokalemia Critical Care Note Critical Care Time?: Yes (45 min-critical care time only) Critical care comment: Hypotension Total critical care time: Approximately 36 minutes Due to a high probability of clinically significant, life threatening deterioration, the patient required my highest level of preparedness to intervene emergently and I personally spent this critical care time directly and personally managing the patient. This critical care time included obtaining a history; examining the patient; pulse oximetry; ordering and review of studies; arranging urgent treatment with development of a management plan; evaluation of patient's response to treatment; frequent reassessment; and, discussions with other providers. This critical care time was performed to assess and manage the high probability of imminent, life-threatening deterioration that could result in multi-organ failure. It was exclusive of separately billable procedures and treating other patients. Stability Stability form required: No Heart Score Heart Score: Heart Score Response (Comments) Value History N/A 0 EKG N/A 0 Age N/A 0 Risk Factors N/A 0 Troponin N/A 0 Total 0 I personally scribed for RAHEL GAMA MD ([email or web address]) on 03/26/25 at 03:01. Electronically submitted by Aaron Faust ([facility]). RAHEL GAMA MD Mar 26, 2025 03:01
[2025-03-26] MEDS: SODIUM CHLORIDE 0.9% 1,000 ML IVB ONE (03:13)
[2025-03-26 03:22] LABS: Basophils # (auto) 0.1 10 ^3/uL (0-0.2); Basophils % (auto) 0.3 % (0.0-2.0); Eosinophils # (auto) 0.1 10 ^3/uL (0-0.8); Eosinophils % (auto) 0.6 % (0.0-7.0); Monocytes # (auto) 0.7 10 ^3/uL (0-1.3)
[2025-03-26 03:23] LABS: Hematocrit 21.3 % (36.0-46.0); Hemoglobin 7.2 g/dL (12.2-16.2); Lymphocytes # (auto) 1.1 10 ^3/uL (0.4-5.4); Lymphocytes % (auto) 6.3 % (10.0-50.0); Mean Corpuscular Hemoglobin 28.5 pg (28.0-32.0); Mean Corpuscular Volume 83.8 fL (80.0-100.0); Monocytes % (auto) 3.9 % (0.0-12.0); Neutrophils # (auto) 15.1 10 ^3/uL (1.6-8.6); Neutrophils % (auto) 88.9 % (37.0-80.0); Platelet Count (auto) 290 10^3/uL (140-450); Red Blood Cells 2.54 10^6/uL (4.0-5.20); Red Cell Distribution Width 15.2 % (11.8-14.3)
[2025-03-26 03:28] LABS: Urine Bacteria None Seen /hpf (None Seen)
[2025-03-26 03:37] LABS: INR 1.46 (0.9-1.15); Partial Thromboplastin Time 30.6 SEC (24.5-34.5); Prothrombin Time 14.9 sec (9.3-11.8)
[2025-03-26 03:38] LABS: Urine Blood Negative /uL (Negative); Urine Clarity Clear (Clear); Urine Color Yellow (Yellow); Urine Hyaline Cast MANY /lpf (0 - 2); Urine Mucus FEW (None Seen); Urine Protein, UAD Negative (Negative); Urine Specific Gravity 1.025 (1.001-1.035); Urine Squamous Epithelial Cell None Seen /hpf (<5); Urine Urobilinogen 3 mg/dL (Negative); Urine WBC 4 /HPF (0-5)
[2025-03-26 03:42] LABS: Alanine Aminotransferase 31 U/L (7-40)
[2025-03-26 03:43] LABS: Anion Gap 10 (5-15); BUN/Creatinine Ratio 64.7 (10.0-20.0); Bilirubin, Total 0.5 mg/dL (0.2-1.0); Carbon Dioxide 31 mmol/L (20-31)
[2025-03-26 03:44] LABS: Albumin 2.6 g/dL (3.2-4.8); Alkaline Phosphatase 520 U/L (46-116); Aspartate Aminotransferase 55 U/L (13-40); Blood Urea Nitrogen 33 mg/dL (9-23); Calcium 7.9 mg/dL (8.7-10.4); Chloride 90 mmol/L (98-107); Glucose 135 mg/dL (74-106); Potassium 3.1 mmol/L (3.5-5.1); Sodium 131 mmol/L (136-145); Total Protein 4.5 g/dL (5.7-8.2)
--- NOTE | 2025-03-26 03:57 | DVH ---
CHEST RADIOGRAPH Indication: syncope, SOB Technique: Single frontal view of the chest was obtained COMPARISON: XY CHEST PORTABLE on DOS: 03/08/25 FINDINGS: Lines and Tubes: None Lungs: Grossly stable appearing innumerable ill-defined nodular opacities throughout all lung zones, predominating within the lung bases. Probable small bilateral pleural effusions. No pneumothorax. Cardiomediastinal contours: Unremarkable Bones: Unremarkable IMPRESSION: 1. Stable appearing diffuse bilateral multifocal nodular opacities, predominating within the lung bas es. 2. Probable bilateral pleural effusions.
[2025-03-26] MEDS ORDERED: MORPHINE SULFATE INJ 2 MG/ml SYRG IV PRN (07:45)
[2025-03-26] MEDS ORDERED: ACETAMINOPHEN 325 MG TAB PO PRN ×2 (07:45→08:00)
[2025-03-26] MEDS ORDERED: NITROGLYCERIN 0.4 MG SL TAB SL PRN (07:45)
--- NOTE | 2025-03-26 07:46 | DVHHP2 ---
History of Present Illness History of Present Illness Patient speaks Yi, however son at bedside translated. Per patient's son patient has been having black stools for several days now. He tried to transfer her to the toilet and patient became unconscious. Patient has been severely malnourished recently after being diagnosed with colon cancer with metastasis to the liver and lung. Patient currently denies any chest pain fever chills. Review of Systems Respiratory: No: Cough, Dry, Shortness of breath, SOB with excertion, Wheezing, Hemoptysis, Pleuritic Pain, Sputum, Wheezing, Other Cardiovascular: No: Chest Pain, Palpitations, Orthopnea, Paroxysmal Noc. Dyspnea, Edema, Lt Headedness, Other Gastrointestinal: Nausea Allergies: Coded Allergies: NO KNOWN ALLERGIES (Unverified , 03/08/25) Medications Current Medications Medications Dose Ordered Sig/Pedro Route Start Time Stop Time Status Last Admin Dose Admin Acetaminophen 650 mg Q6HP PRN PO 03/26/25 07:45 UNV Nitroglycerin 0.4 mg Q5MINP PRN SL 03/26/25 07:45 UNV Morphine Sulfate 2 mg Q30M PRN IV 03/26/25 07:45 UNV Exam Vital Signs Vital Signs Date Time Temp Pulse Resp B/P (MAP) Pulse Ox O2 Delivery O2 Flow Rate FiO2 03/26/25 06:16 98.6 85 19 102/59 98.6 03/26/25 06:16 98 03/26/25 02:45 Nasal Cannula* 4 36 General Appearance: Alert, Oriented X3, Cooperative, No acute distress Respiratory: Clear to auscultation, Normal air movement Cardiovascular: Regular rate, Normal S1, Normal S2 Abdominal: Normal bowel sounds, Other (Abdomen is tender) Labs/Xrays Labs Test 03/26/25 03:05 03/26/25 02:53 Range/Units Urine Color Yellow Yellow Urine Clarity Clear Clear Urine pH 6.0 5.0-9.0 Urine Specific [place] 1.025 1.001-1.035 Urine Protein Negative Negative Urine Ketones Negative Negative Urine Blood Negative Negative /uL Urine Nitrite Negative Negative Urine Bilirubin Negative Negative Urine Urobilinogen 3 H Negative mg/dL Urine Leukocyte Esterase Negative Negative /uL Urine RBC None seen 0 - 4 /hpf Urine Microscopic WBC 4 0-5 /HPF Urine Squamous Epithelial Cells None seen <5 /hpf Urine Bacteria None seen None Seen /hpf Urine Hyaline Casts Many 0 - 2 /lpf Urine Mucus Few None Seen Urine Glucose Normal Normal mg/dL White Blood Count 17.0 H 4.4-10.8 10^3/uL Red Blood Count 2.54 L 4.0-5.20 10^6/uL Hemoglobin 7.2 L 12.2-16.2 g/dL Hematocrit 21.3 L 36.0-46.0 % Mean Corpuscular Volume 83.8 80.0-100.0 fL Mean Corpuscular Hemoglobin 28.5 28.0-32.0 pg Mean Corpuscular Hemoglobin Concent 34.0 32.0-36.0 g/dL Red Cell Distribution Width 15.2 H 11.8-14.3 % Platelet Count 290 140-450 10^3/uL Mean Platelet Volume 7.1 6.9-10.8 fL Neutrophils (%) (Auto) 88.9 H 37.0-80.0 % Lymphocytes (%) (Auto) 6.3 L 10.0-50.0 % Monocytes (%) (Auto) 3.9 0.0-12.0 % Eosinophils (%) (Auto) 0.6 0.0-7.0 % Basophils (%) (Auto) 0.3 0.0-2.0 % Neutrophils # (Auto) 15.1 H 1.6-8.6 10 ^3/uL Lymphocytes # (Auto) 1.1 0.4-5.4 10 ^3/uL Monocytes # (Auto) 0.7 0-1.3 10 ^3/uL Eosinophils # (Auto) 0.1 0-0.8 10 ^3/uL Basophils # (Auto) 0.1 0-0.2 10 ^3/uL Nucleated Red Blood Cells 0.0 % Prothrombin Time 14.9 H 9.3-11.8 sec Prothrombin Time INR 1.46 H 0.9-1.15 Activated Partial Thromboplast Time 30.6 24.5-34.5 SEC Sodium Level 131 L 136-145 mmol/L Potassium Level 3.1 L 3.5-5.1 mmol/L Chloride Level 90 L 98-107 mmol/L Carbon Dioxide Level 31 20-31 mmol/L Anion Gap 10 5-15 Blood Urea Nitrogen 33 H 9-23 mg/dL Creatinine 0.51 L 0.550-1.02 mg/dL Glomerular Filtration Rate Calc 105 >90 mL/min BUN/Creatinine Ratio 64.7 H 10.0-20.0 Serum Glucose 135 H 74-106 mg/dL Calcium Level 7.9 L 8.7-10.4 mg/dL Magnesium Level 2.0 1.6-2.6 mg/dL Total Bilirubin 0.5 0.2-1.0 mg/dL Aspartate Amino Transferase (AST) 55 H 13-40 U/L Alanine Aminotransferase (ALT) 31 7-40 U/L Alkaline Phosphatase 520 H 46-116 U/L Total Protein 4.5 L 5.7-8.2 g/dL Albumin 2.6 L 3.2-4.8 g/dL Assessment/Plan Assessment/Plan 1. syncope likely secondary to blood loss anemia cardiac consult, 2. Hepatic metastatic disease Monitor, oncology consult, GI consult 3. colorectal cancer metastasis to liver and lungs Monitor 4. Elevated troponin Monitor, cardiology consult, PPI, monitor EKG 5. Elevated liver enzymes Monitor, radiology consult for liver biopsy 6. hx of CVA Monitor 7. Coagulopathy 8. blood loss anemia transfuse for hgb below 7 9. sepsis likely from PNA gram negative or positive IV abx 10. moderate protein deficiency monitor 11. hyponatremia 12. acute metabolic encephalopathy monitor neuro status 13. GI bleed likely upper GI consult, PPI 14. Non-STEMI likely type 2 Cardiac consult Plan discussed with: Patient, Son My Orders Orders - AQUILES WALKER GERMAN TUTOR Procedure Category Date Status Time Admit ADMIT 03/26/25 Transmitted 07:[address] [facility] 03/26/25 In Process 07:38 Code Status CODE 03/26/25 Transmitted 07:38 Npo (Nothing By DIET 03/26/25 Transmitted Mouth) Diet Breakfast Acetaminophen Tablet [facility] 03/26/25 Logged (Tylenol Tablet) 07:[address] [facility] 03/26/25 Logged Sublingual (Ntrostat 07:45 Morphine Sulfate [facility] 03/26/25 Logged Injection 07:45 Stat Ekg For Chest [facility] 03/26/25 In Process Pain 07:38 Notify Of Changes [facility] 03/26/25 In Process From Base 07:38 Tool Profiling Machine Set Up Operator For [facility] 03/26/25 In Process 24 Hours 07:38 Emergency Dysrhythmia [facility] 03/26/25 In Process Protocol 07:38 Rhythm Strips Once [facility] 4/26/25 In Process Every Shift 07:38 Oxygen By Nasal RT 03/26/25 Transmitted Cannula 07:38 *Consult Dr[address] Dee CONS 03/26/25 Transmitted [place] 07:38 Pantoprazole PHA 03/26/25 Logged 40mg/50ml Ns Ae 07:45 Sodium Chloride 0.9% [facility] 03/26/25 Logged 07:45 *Consult Dr[address] Goetz CONS 03/26/25 Transmitted 07:41 Azithromycin 500mg/ PHA 03/26/25 Verified 250ml (Zithromax 50 10:00 Date of Service: Mar 26, 2025 Billing Provider: EVELIA HOPKINS MD Common Visit Codes: 20879-[id number] INP/OBS CARE (HIGH) AQUILES WALKER GERMAN TUTOR Mar 26, 2025 07:46
[2025-03-26 08:56] LABS: % Iron Saturation 23.8 % (15-50)
[2025-03-26] MEDS: cefTRIAXone 1GM/50ML D5W 50 ML IV SCH (09:29)
[2025-03-26] MEDS: SODIUM CHLORIDE 0.9% 1,000 ML IV ONE (09:30)
[2025-03-26] MEDS: PANTOPRAZOLE 40mg/50ML NS AE 50 ML IV ONE (09:31)
[2025-03-26] MEDS: AZITHROMYCIN 500MG/ 250ML 250 ML IV SCH (10:00)
[2025-03-26] MEDS: POTASSIUM CHLORIDE 40 MEQ, LIDOCAINE 1% (LOCAL ANESTH.) 4 ML in SODIUM CHL 0.9% 250 ML IV ONE (10:32)
[2025-03-26] MEDS ORDERED: ONDANSETRON HCL 4 MG/2 ML VIAL IV PRN (10:45)
--- NOTE | 2025-03-26 13:20 | DVHINCON2 ---
Date of service: Mar 26, 2025 History of Present Illness HPI Patient is a 64-year-old female who was brought to the hospital for generalized weakness and loss of consciousness. Patient is Persian speaking and information was obtained by talking to the son (at bedside). Patient was recently in the hospital and was discharged few weeks back after she was found to have metastatic cancer. As per son, since the patient was at home, she has been having repeated bowel movements daily which have been bloody and black. As per son, the patient became nonresponsive while going to the bathroom and the son decided to call 911. Reportedly EMS found the patient to be hypotensive, tachycardic with low oxygen saturation. In emergency room, the patient was found to have significant anemia and has received blood transfusion. Patient was recently found to have rectal mass with metastatic cancer. In recent admission, the patient was also found to have CVAs. It seems that at the time of discharge, the primary team started the patient on Eliquis for the reported CVAs (reportedly as per suggestion of Neurology). Patient has been on 5 mg Eliquis twice daily at home. Prior to previous admission, the patient was healthy with only past history of occasional back pain. Does have family history of different cancers. In previous admission, the patient was found to have stable mildly increased troponin which was assessed to reflect demand ischemia. Is not known to have any primary cardiac pathology. There is no previous diagnosis of any arrhythmia. Echocardiogram of March 09, 2025 had revealed left ventricular systolic function to be hyperdynamic with no specific valvular disease and normal right-sided pressures. Cardiology is involved for cardiac aspects of care. There has been no report of chest pain. There has been no report of shortness of breath. Home Meds Active Scripts Morphine Sulfate (Ms Contin) 30 Mg Tab, 1 TAB PO DAILY for 30 Days, #30 TAB Prov:JUDY JACK LINOLEUM LAYER 03/16/25 Naloxone HCl (Narcan) 4 Mg/0.1 Ml Spr, 4 MG NA UD for 30 Days, #1 SPRAY Prov:JUDY JACK LINOLEUM LAYER 03/15/25 Senna (Senokot) 8.6 Mg Tab, 1 TAB PO BID for 30 Days, #60 TAB Prov:JUDY JACK LINOLEUM LAYER 03/15/25 Ondansetron Odt 4MG Tab (ZOFRAN PO) 4 Mg Tb, 4 MG PO Q6HP PRN for 30 Days, #120 TAB ODT TAB-DISSOLVE IN MOUTH, THEN SWALLOW Prov:JUDY JACK LINOLEUM LAYER 03/15/25 Apixaban Base (ELIQUIS) 5 Mg Tab, 5 MG PO BID for 30 Days, #60 TAB Prov:JUDY JACK LINOLEUM LAYER 03/15/25 Pantoprazole Sodium Sesquihydr (Protonix) 40 Mg Tab, 40 MG PO DAILY, #30 TAB Prov:JUYD JACK LINOLEUM LAYER 03/15/25 Atorvastatin Calcium (ATORVASTATIN CALCIUM) 20 Mg Tab, 20 MG PO HS for 30 Days, #30 TAB Prov:JUDY JACK LINOLEUM LAYER 03/15/25 Past Medical History Others Past medical history: Recent diagnosis of metastatic cancer (possibly colorectal) to liver (positive recent pathology of liver biopsy), pulmonary mets, retroperitoneal joana metastatic disease, 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 Previously had flat mildly elevated troponin which was assessed to reflect demand physiology. Family History: Cancer Patient Family History: Asthma G8 MOTHER Osteoporosis G8 FATHER Smoker: No Hx (Negative) Alocohol: None Drugs: None Lives with: With family Review of Systems Constitutional: Weakness Gastrointestinal: Melena, Hematochezia All Other Systems Fourteen point review of system was performed. Relevant findings as per above and as per HPI. Otherwise negative. H&P Exam Vital Signs Vital Signs Date Time Temp Pulse Resp B/P (MAP) Pulse Ox O2 Delivery O2 Flow Rate FiO2 03/26/25 10:50 92 03/26/25 10:45 12 105/68 (80) 98 03/26/25 09:11 98.4 98.4 03/26/25 07:30 Nasal Cannula* 2 28 General Appeara: Cachetic, Moderate distress Eye Exam: bilateral eye PERRL Mouth: Dry mouth Pulmonary/Respiratory: Rhonci Cardiovascular/Chest: Regular rate, Tachycardia, Systolic murmur Peripheral Pulses: 2+ carotid (R), 2+ carotid (L); 1+ dorsalis pedis (R), 1+ dorsalis pedis (L) Abdominal Exam: Normal bowel sounds Labs/Xrays Labs Test 03/26/25 03:05 03/26/25 02:53 Range/Units Urine Color Yellow Yellow Urine Clarity Clear Clear Urine pH 6.0 5.0-9.0 Urine Specific [place] 1.025 1.001-1.035 Urine Protein Negative Negative Urine Ketones Negative Negative Urine Blood Negative Negative /uL Urine Nitrite Negative Negative Urine Bilirubin Negative Negative Urine Urobilinogen 3 H Negative mg/dL Urine Leukocyte Esterase Negative Negative /uL Urine RBC None seen 0 - 4 /hpf Urine Microscopic WBC 4 0-5 /HPF Urine Squamous Epithelial Cells None seen <5 /hpf Urine Bacteria None seen None Seen /hpf Urine Hyaline Casts Many 0 - 2 /lpf Urine Mucus Few None Seen Urine Glucose Normal Normal mg/dL White Blood Count 17.0 H 4.4-10.8 10^3/uL Red Blood Count 2.54 L 4.0-5.20 10^6/uL Hemoglobin 7.2 L 12.2-16.2 g/dL Hematocrit 21.3 L 36.0-46.0 % Mean Corpuscular Volume 83.8 80.0-100.0 fL Mean Corpuscular Hemoglobin 28.5 28.0-32.0 pg Mean Corpuscular Hemoglobin Concent 34.0 32.0-36.0 g/dL Red Cell Distribution Width 15.2 H 11.8-14.3 % Platelet Count 290 140-450 10^3/uL Mean Platelet Volume 7.1 6.9-10.8 fL Neutrophils (%) (Auto) 88.9 H 37.0-80.0 % Lymphocytes (%) (Auto) 6.3 L 10.0-50.0 % Monocytes (%) (Auto) 3.9 0.0-12.0 % Eosinophils (%) (Auto) 0.6 0.0-7.0 % Basophils (%) (Auto) 0.3 0.0-2.0 % Neutrophils # (Auto) 15.1 H 1.6-8.6 10 ^3/uL Lymphocytes # (Auto) 1.1 0.4-5.4 10 ^3/uL Monocytes # (Auto) 0.7 0-1.3 10 ^3/uL Eosinophils # (Auto) 0.1 0-0.8 10 ^3/uL Basophils # (Auto) 0.1 0-0.2 10 ^3/uL Nucleated Red Blood Cells 0.0 % Prothrombin Time 14.9 H 9.3-11.8 sec Prothrombin Time INR 1.46 H 0.9-1.15 Activated Partial Thromboplast Time 30.6 24.5-34.5 SEC Sodium Level 131 L 136-145 mmol/L Potassium Level 3.1 L 3.5-5.1 mmol/L Chloride Level 90 L 98-107 mmol/L Carbon Dioxide Level 31 20-31 mmol/L Anion Gap 10 5-15 Blood Urea Nitrogen 33 H 9-23 mg/dL Creatinine 0.51 L 0.550-1.02 mg/dL Glomerular Filtration Rate Calc 105 >90 mL/min BUN/Creatinine Ratio 64.7 H 10.0-20.0 Serum Glucose 135 H 74-106 mg/dL Calcium Level 7.9 L 8.7-10.4 mg/dL Magnesium Level 2.0 1.6-2.6 mg/dL Iron Level 44 L 50-170 ug/dL Total Iron Binding Capacity 185 L 250-425 ug/dL Percent Iron Saturation 23.8 15-50 % Total Bilirubin 0.5 0.2-1.0 mg/dL Aspartate Amino Transferase (AST) 55 H 13-40 U/L Alanine Aminotransferase (ALT) 31 7-40 U/L Alkaline Phosphatase 520 H 46-116 U/L C-Reactive Protein High Sensitivity 5.92 H <1.0 mg/dL Total Protein 4.5 L 5.7-8.2 g/dL Albumin 2.6 L 3.2-4.8 g/dL Assessment/Plan Plan Patient is a 64-year-old female who was brought to the hospital for generalized weakness and loss of consciousness. Patient is Persian speaking and information was obtained by talking to the son (at bedside). Patient was recently in the hospital and was discharged few weeks back after she was found to have metastatic cancer. As per son, since the patient was at home, she has been having repeated bowel movements daily which have been bloody and black. As per son, the patient became nonresponsive while going to the bathroom and the son decided to call 911. Reportedly EMS found the patient to be hypotensive, tachycardic with low oxygen saturation. In emergency room, the patient was found to have significant anemia and has received blood transfusion. Patient was recently found to have rectal mass with metastatic cancer. In recent admission, the patient was also found to have CVAs. It seems that at the time of discharge, the primary team started the patient on Eliquis for the reported CVAs (reportedly as per suggestion of Neurology). Patient has been on 5 mg Eliquis twice daily at home. Prior to previous admission, the patient was healthy with only past history of occasional back pain. Does have family history of different cancers. In previous admission, the patient was found to have stable mildly increased troponin which was assessed to reflect demand ischemia. Is not known to have any primary cardiac pathology. There is no previous diagnosis of any arrhythmia. Echocardiogram of March 09, 2025 had revealed left ventricular systolic function to be hyperdynamic with no specific valvular disease and normal right-sided pressures. Cardiology is involved for cardiac aspects of care. There has been no report of chest pain. There has been no report of shortness of breath. Pale patient. Somehow confused. Dry mucosa. No JVD. Lungs reveal rhonchi. No crackles. Cardiac: Tachycardic, no thrill/gallop. Abdomen: Soft. Increased bowel sounds. Extremities: Dorsalis pedis is 1+ bilateral with 1+ edema bilaterally. 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 Previously had flat mildly elevated troponin which was assessed to reflect demand physiology. Echocardiogram of March 09, 2025 had reported ejection fraction of 75%, hyperdynamic LV, trace MR/TR/PI. Right ventricular systolic pressure was 28 mm Hg WBC: 17 Hemoglobin: 7.2 Creatinine: 0.51 BUN: 33 Potassium: 3.1 Sodium: 131 Serum Iron: 44 CRP: 5.92 Chest x-ray reported: IMPRESSION: 1. Stable appearing diffuse bilateral multifocal nodular opacities, predominating within the lung bases. 2. Probable bilateral pleural effusions. EKG reveals sinus tachycardia with nonspecific ST-T changes Tele reveals sinus tachycardia Patient is a 64-year-old female with advanced metastatic cancer who presented with hypotension. Reportedly has been having GI bleeding for many days. Was on Eliquis as outpatient (as per suggestion of Neurology on previous admission). Clinically the patient is cachectic. Is immunocompromised. Does have leukocytosis and sepsis could have contributed to the clinical picture also. GI bleeding/anemia/sepsis could have been the etiology for loss of consciousness/hypotension. Primary cardiac etiology is less likely and not considered. Encephalopathy Presyncope Hypotension GI bleeding Significant anemia Sepsis Metastatic cancer Immunocompromised Cachectic Cardiac suggestion for management: Manage on telemetry Fluid resuscitation Consider repeat blood transfusion Hold off anticoagulation for now Follow-up electrolytes and kidney function tests and correct abnormalities (keep potassium above 4 and magnesium above 2) Consider sepsis workup Antibiotics as per primary team You may consider screening troponin/BNP Request for TFT Consider GI evaluation Consider Hematology/Oncology evaluation and follow-up Neurology evaluation / follow up Considering the patient's significantly advanced metastatic cancer/history of CVA, you may consider hospice Further evaluation and management depends on the above and clinical course Thank you for consultation A total of 75 minutes was spent reviewing the patient record, examining the patient, making a diagnostic and therapeutic plan, discussing this plan with medical personnel, following up on diagnostic studies and following the patient for clinical stability excluding any and all procedures. At least 50% of this time was spent in direct, [id number] contact. Thank you for allowing me to participate in this patient's care. Further recommendations will depend on patient's clinical course. Please do not hesitate to contact me if you have any questions or concerns. This medical document was created using electronic medical record system with [employer] computerized dictation system. Although this document has been carefully reviewed, there may still be some phonetic and typographical errors. These areas are purely typographical due to the imperfection of the software programs, and do not reflect any compromise in the patient's medical care Plan discussed with: Son (at bedside) FARIDA MOTT MD Mar 26, 2025 13:20
[2025-03-26] MEDS: PANTOPRAZOLE 40mg/50ML NS AE 50 ML IV SCH (13:30)
[2025-03-26] MEDS: PANTOPRAZOLE 40 MG/10 ML VIAL INJ IV ONE (13:30)
--- NOTE | 2025-03-26 15:08 | DVH ---
CLINICAL HISTORY: aloc TECHNIQUE: Helical imaging carried out from skull base to vertex without intravenous contrast. This e xam was performed according to our departmental dose optimization program. Up-to-date CT equipment an d radiation dose reduction techniques are utilized as appropriate. CTDIVol: 51.66 mGy DLP: 828.22 mGy-cm WID: COMPARISON: CT HEAD WITHOUT CONTRAST on DOS: 03/08/25 MRI brain from 03/13/2025 FINDINGS: Known bilateral cerebellar and bilateral frontal and parietal lobe infarcts are seen to better advant age on prior MRI. There is a new area of loss of oconnor-white matter differentiation in the high bilate ral parietal lobes, more pronounced on the left on series 2, image 48. The ventricles and subarachnoid spaces are normal in size and configuration. There is no midline cheng ft or mass effect. The basal cisterns are patent. There is no evidence of acute intracranial hemorrh age or extra-axial fluid collection. The mastoid air cells and visualized paranasal sinuses are well- aerated. IMPRESSION: 1. No acute intracranial hemorrhage or mass effect. 2. New small areas of loss of oconnor-white matter differentiation in the high posterior bilateral parie mirza lobes more pronounced in the left likely areas of evolving infarct. 3. Known bilateral frontal lobe and cerebellar infarcts seen to better advantage on recent MRI brain.
[2025-03-26] MEDS ORDERED: ASPirin 325 MG TAB PO ONE (16:00)
[2025-03-26] MEDS: METHADONE HCL 10 MG TAB PO SCH (17:08)
--- NOTE | 2025-03-26 18:20 | DVHINCON2 ---
Date of service: Mar 26, 2025 Referring Physician Nicholas Armstrong Reason for Consultation GI bleed History of Present Illness Patient speaks Slovak, however son at bedside translated. Per patient's son patient has been having black stools for several days now. He tried to transfer her to the toilet and patient became unconscious. Patient has been severely malnourished recently after being diagnosed with colon cancer with metastasis to the liver and lung. Patient currently denies any chest pain fever chills. Patient is known to me from a recent hospitalization where she presented with generalized weakness. She was found to have severe anemia and CT showed evidence of suspected rectal mass with metastases .She was discharged home with [facility] and was supposed to follow up with Dr. Garsia at [facility] for further consultation and evaluation for chemotherapy I performed a sigmoidoscopy for her and the biopsies confirmed a rectal a denocarcinoma ;Her liver biopsies also showed adenocarcinoma colorectal in origin Operative Report DATE OF OPERATION: 03/11/25 PROCEDURE: Flexible sigmoidoscopy with biopsy PREOPERATIVE INDICATION: The patient is a 64 -year-old female undergoing flexible sigmoidoscopy for evaluation of suspected rectal mass POSTOPERATIVE DIAGNOSES: 1. Patient had an obstructing friable circumferential rectosigmoid mass starting at about 5-6 cm above the anal verge beyond which the colonoscope could not be advanced Multiple biopsies were obtained Past Medical History CVA Metastatic colon cancer Rectal mass Past Surgical History Liver biopsy Sigmoidoscopy Family History: Asthma G8 MOTHER Osteoporosis G8 FATHER Allergies: Coded Allergies: NO KNOWN ALLERGIES (Unverified , 03/08/25) Home Meds Active Scripts Morphine Sulfate (Ms Contin) 30 Mg Tab, 1 TAB PO DAILY for 30 Days, #30 TAB Prov:JUDY JACK NP 03/16/25 Naloxone HCl (Narcan) 4 Mg/0.1 Ml Spr, 4 MG NA UD for 30 Days, #1 SPRAY Prov:JUDY JACK [place] CORON[facility] 03/15/25 Senna (Senokot) 8.6 Mg Tab, 1 TAB PO BID for 30 Days, #60 TAB Prov:JUDY JACK NP 03/15/25 Ondansetron Odt 4MG Tab (ZOFRAN PO) 4 Mg Tb, 4 MG PO Q6HP PRN for 30 Days, #120 TAB ODT TAB-DISSOLVE IN MOUTH, THEN SWALLOW Prov:JUDY JACK [place] CORON[facility] 03/15/25 Apixaban Base (ELIQUIS) 5 Mg Tab, 5 MG PO BID for 30 Days, #60 TAB Prov:JUDY JACK [place] CORON[facility] 03/15/25 Pantoprazole Sodium Sesquihydr (Protonix) 40 Mg Tab, 40 MG PO DAILY, #30 TAB Prov:JUDY JACK [place] CORON[facility] 03/15/25 Atorvastatin Calcium (ATORVASTATIN CALCIUM) 20 Mg Tab, 20 MG PO HS for 30 Days, #30 TAB Prov:JUDY JACK [place] CORONER 03/15/25 Current Medications Current Medications Medications (Trade) Dose Ordered Sig/Pedro Route PRN Reason Start Time Stop Time Status Last Admin Acetaminophen (Tylenol Tablet) 650 mg Q6HP PRN PO PAIN SCALE 1-3 OR TEMP>100.4 03/26/25 07:45 03/26/25 07:52 DC Nitroglycerin (Ntrostat Sublingual) 0.4 mg Q5MINP PRN SL FOR CHEST PAIN 03/26/25 07:45 Morphine Sulfate 2 mg Q30M PRN IV FOR CHEST PAIN 03/26/25 07:45 Azithromycin 250 ml @ 125 mls/hr DAILY IV 03/26/25 10:00 03/26/25 10:00 Ceftriaxone Sodium 50 ml @ 100 mls/hr DAILY@09 IV 03/26/25 09:00 03/26/25 09:29 Acetaminophen (Tylenol Tablet) 650 mg Q4HPRN PRN PO PAIN SCALE 1-3 OR TEMP>100.4 03/26/25 08:00 Ondansetron HCl (Zofran) 4 mg Q4HPRN PRN IV NAUSEA / VOMITING 03/26/25 10:45 Pantoprazole Sodium 50 ml @ 10 mls/hr Q5H IV 03/26/25 13:30 03/26/25 13:30 Methadone HCl (Methadone HCl Tablet) 5 mg BID PO 03/26/25 17:00 03/26/25 17:08 Vital Signs Vital Signs Date Time Temp Pulse Resp B/P (MAP) Pulse Ox O2 Delivery O2 Flow Rate FiO2 03/26/25 18:00 95 20 117/62 (80) 99 03/26/25 17:40 97.9 97.9 03/26/25 07:30 Nasal Cannula* 2 28 Physical Exam General Appearance: Thin ladyAlert, Oriented X3, Cooperative, No acute distress Respiratory: Clear to auscultation, Normal air movement Cardiovascular: Regular rate, Normal S1, Normal S2 Abdominal: Normal bowel sounds, Other (Abdomen is tender) extremities show some unilateral weakness Labs/Diagnostic Data Labs Test 03/26/25 13:36 03/26/25 03:05 03/26/25 02:53 Range/Units D-Dimer, Quantitative 1.77 H 0.0-0.49 mg/L FEU Troponin I High Sensitivity 1149 *H </=34 ng/L B-Type Natriuretic Peptide 50.11 0-100 pg/mL Thyroid Stimulating Hormone (TSH) 0.53 L 0.55-4.78 uIU/mL Urine Color Yellow Yellow Urine Clarity Clear Clear Urine pH 6.0 5.0-9.0 Urine Specific [place] 1.025 1.001-1.035 Urine Protein Negative Negative Urine Ketones Negative Negative Urine Blood Negative Negative /uL Urine Nitrite Negative Negative Urine Bilirubin Negative Negative Urine Urobilinogen 3 H Negative mg/dL Urine Leukocyte Esterase Negative Negative /uL Urine RBC None seen 0 - 4 /hpf Urine Microscopic WBC 4 0-5 /HPF Urine Squamous Epithelial Cells None seen <5 /hpf Urine Bacteria None seen None Seen /hpf Urine Hyaline Casts Many 0 - 2 /lpf Urine Mucus Few None Seen Urine Glucose Normal Normal mg/dL White Blood Count 17.0 H 4.4-10.8 10^3/uL Red Blood Count 2.54 L 4.0-5.20 10^6/uL Hemoglobin 7.2 L 12.2-16.2 g/dL Hematocrit 21.3 L 36.0-46.0 % Mean Corpuscular Volume 83.8 80.0-100.0 fL Mean Corpuscular Hemoglobin 28.5 28.0-32.0 pg Mean Corpuscular Hemoglobin Concent 34.0 32.0-36.0 g/dL Red Cell Distribution Width 15.2 H 11.8-14.3 % Platelet Count 290 140-450 10^3/uL Mean Platelet Volume 7.1 6.9-10.8 fL Neutrophils (%) (Auto) 88.9 H 37.0-80.0 % Lymphocytes (%) (Auto) 6.3 L 10.0-50.0 % Monocytes (%) (Auto) 3.9 0.0-12.0 % Eosinophils (%) (Auto) 0.6 0.0-7.0 % Basophils (%) (Auto) 0.3 0.0-2.0 % Neutrophils # (Auto) 15.1 H 1.6-8.6 10 ^3/uL Lymphocytes # (Auto) 1.1 0.4-5.4 10 ^3/uL Monocytes # (Auto) 0.7 0-1.3 10 ^3/uL Eosinophils # (Auto) 0.1 0-0.8 10 ^3/uL Basophils # (Auto) 0.1 0-0.2 10 ^3/uL Nucleated Red Blood Cells 0.0 % Prothrombin Time 14.9 H 9.3-11.8 sec Prothrombin Time INR 1.46 H 0.9-1.15 Activated Partial Thromboplast Time 30.6 24.5-34.5 SEC Sodium Level 131 L 136-145 mmol/L Potassium Level 3.1 L 3.5-5.1 mmol/L Chloride Level 90 L 98-107 mmol/L Carbon Dioxide Level 31 20-31 mmol/L Anion Gap 10 5-15 Blood Urea Nitrogen 33 H 9-23 mg/dL Creatinine 0.51 L 0.550-1.02 mg/dL Glomerular Filtration Rate Calc 105 >90 mL/min BUN/Creatinine Ratio 64.7 H 10.0-20.0 Serum Glucose 135 H 74-106 mg/dL Calcium Level 7.9 L 8.7-10.4 mg/dL Magnesium Level 2.0 1.6-2.6 mg/dL Iron Level 44 L 50-170 ug/dL Total Iron Binding Capacity 185 L 250-425 ug/dL Percent Iron Saturation 23.8 15-50 % Total Bilirubin 0.5 0.2-1.0 mg/dL Aspartate Amino Transferase (AST) 55 H 13-40 U/L Alanine Aminotransferase (ALT) 31 7-40 U/L Alkaline Phosphatase 520 H 46-116 U/L C-Reactive Protein High Sensitivity 5.92 H <1.0 mg/dL Total Protein 4.5 L 5.7-8.2 g/dL Albumin 2.6 L 3.2-4.8 g/dL Problems(with codes): (1) Rectal mass (2) Colorectal carcinoma (3) GI bleed (4) Elevated CA 19-9 level (5) Metastatic neoplasm (6) CVA (cerebral vascular accident) Plan/Recommendation Assessment plan Patient's anemia is likely related to ongoing rectal bleeding from her rectal mass She has evidence of metastatic colorectal cancer confirmed by liver biopsy Patient is overall in a poor condition because of previous CVA and may not be a good candidate for chemotherapy Consider hospice evaluation for this patient if the family is agreeable Continue supportive care and transfuse 1 unit PRBC if hemoglobin drops below seven She has elevated troponins likely related to demand ischemia Overall prognosis is guarded I will keep her also on Protonix 40 mg IV daily and monitor her labs Once again thank you for allowing me to participate in the care of this patient Plan discussed with: Patient, Son, Other (ER Nurse) ROBERT RAMIREZ MD Mar 26, 2025 18:20
[2025-03-26] MEDS: POTASSIUM CHL 20MEQ/50ML 50 ML IV SCH (20:06)
[2025-03-26 22:26] LABS: Basophils # (auto) 0.1 10 ^3/uL (0-0.2); Basophils % (auto) 0.3 % (0.0-2.0); Eosinophils % (auto) 4.6 % (0.0-7.0); Hematocrit 31.7 % (36.0-46.0); Hemoglobin 10.7 g/dL (12.2-16.2); Lymphocytes # (auto) 1.3 10 ^3/uL (0.4-5.4); Mean Corpuscular Hemoglobin 29.2 pg (28.0-32.0); Mean Corpuscular Hgb Conc. 33.8 g/dL (32.0-36.0); Mean Corpuscular Volume 86.5 fL (80.0-100.0); Monocytes # (auto) 1.9 10 ^3/uL (0-1.3); Monocytes % (auto) 8.7 % (0.0-12.0); Neutrophils # (auto) 17.2 10 ^3/uL (1.6-8.6); Neutrophils % (auto) 80.4 % (37.0-80.0); Nucleated Red Blood Cells % 0.1 %; Platelet Count (auto) 235 10^3/uL (140-450); Red Blood Cells 3.67 10^6/uL (4.0-5.20); Red Cell Distribution Width 16.5 % (11.8-14.3); White Blood Cell 21.4 10^3/uL (4.4-10.8)
[2025-03-27] VITALS (21 sets, daily range): BP systolic 92–120; BP diastolic 59–74; PULSE 77–112; RESP 17–27; TEMP 97.1–98.8; O2SAT 91–100
[2025-03-27 05:54] LABS: Basophils # (auto) 0.1 10 ^3/uL (0-0.2); Basophils % (auto) 0.3 % (0.0-2.0); Eosinophils # (auto) 1.4 10 ^3/uL (0-0.8); Eosinophils % (auto) 6.4 % (0.0-7.0); Hematocrit 29.8 % (36.0-46.0); Hemoglobin 10.2 g/dL (12.2-16.2); Lymphocytes # (auto) 1.1 10 ^3/uL (0.4-5.4); Mean Corpuscular Hemoglobin 29.7 pg (28.0-32.0); Mean Corpuscular Volume 87.4 fL (80.0-100.0); Monocytes # (auto) 1.6 10 ^3/uL (0-1.3); Monocytes % (auto) 7.4 % (0.0-12.0); Neutrophils # (auto) 17.6 10 ^3/uL (1.6-8.6); Neutrophils % (auto) 80.9 % (37.0-80.0); Nucleated Red Blood Cells % 0.1 %; Platelet Count (auto) 210 10^3/uL (140-450); Red Blood Cells 3.42 10^6/uL (4.0-5.20); Red Cell Distribution Width 15.9 % (11.8-14.3); White Blood Cell 21.7 10^3/uL (4.4-10.8)
[2025-03-27 06:10] LABS: Alanine Aminotransferase 29 U/L (7-40); Anion Gap 9 (5-15); BUN/Creatinine Ratio 69.6 (10.0-20.0); Carbon Dioxide 28 mmol/L (20-31); Glucose 103 mg/dL (74-106); Potassium 3.8 mmol/L (3.5-5.1)
[2025-03-27 06:11] LABS: Albumin 2.5 g/dL (3.2-4.8); Alkaline Phosphatase 543 U/L (46-116); Aspartate Aminotransferase 48 U/L (13-40); Bilirubin, Total 0.8 mg/dL (0.2-1.0); Blood Urea Nitrogen 32 mg/dL (9-23); Chloride 97 mmol/L (98-107); Sodium 134 mmol/L (136-145); Total Protein 4.4 g/dL (5.7-8.2)
[2025-03-27] MEDS: IOHEXOL 300 MG/ML 100ML BOTTLE IJ ONE (07:01)
--- NOTE | 2025-03-27 08:16 | DVHSR ---
APPROVED REPORT EXAM: LIMITED Two-dimensional and M-mode echocardiogram with Doppler and color Doppler. Blood Pressure: 101/66 mmHg INDICATION Elevated troponin RISK FACTORS Height: 5'3", Weight: 134 DIMENSIONS LVDd3.4 (3.8-5.7cm)LA (2D) (1.9-4.0cm)Aortic Root (2.0-3.7cm) LVDs2.0 (2.5-4.0cm)LA (MM) (1.9-4.0cm)Aortic Cusp Exc (1.5-2.0cm) EF (%) 65.0 (55-70%)Rt. Atrium (1.9-4.0cm)Asc. Aorta cm IVSd1.0 (0.7-1.1cm)RV (D) (1.8-2.4cm) PWd1.0 (0.7-1.1cm) Mitral Valve MitralMitral Stenosis E/A ratio0.02D MVAcm2 Tricuspid Valve TR Velocity2.83m/s [id number] Other Information Quality : Technically LimitedRhythm : Technically limited study due to Limited repeat to eval ef. Conclusion Left ventricle: Left ventricle was normal-sized with normal systolic function. LVEF was 65-70%. Th ere was no gross wall motion abnormality. Right ventricle was normal-sized with normal systolic function. Both atria were normal-sized. Aortic valve was not well visualized. There was mild aortic valve insufficiency. There was no aorti c stenosis. There was no mitral regurgitation. There was mild tricuspid regurgitation. Pulmonary v alve was not well visualized. IVC was normal-sized with normal respiratory variation. Right ventricular systolic pressure was asse ssed at 35 mm Hg. There was no pericardial effusion.
--- NOTE | 2025-03-27 08:27 | DVHPN2 ---
Progress Note - Dictate Date Seen: Mar 27, 2025 Medical Necessity Reason Pt with a Central, PICC or Fol: No vital signs Vital Sign Date Time Temp Pulse Resp B/P (MAP) Pulse Ox O2 Delivery O2 Flow Rate FiO2 03/27/25 06:00 96 27 120/73 (89) 94 03/27/25 04:00 98.7 98.7 03/26/25 20:00 Nasal Cannula* 4 36 Total Intake and Output 03/26/25 03/26/25 03/27/25 15:00 23:00 07:00 Intake Total 930 ml 1255 ml 70 ml Output Total 200 ml 150 ml 500 ml Balance 730 ml 1105 ml -430 ml medications Current Medications Medications Dose Ordered Sig/Pedro Route Start Time Stop Time Status Last Admin Dose Admin Nitroglycerin 0.4 mg Q5MINP PRN SL 03/26/25 07:45 Morphine Sulfate 2 mg Q30M PRN IV 03/26/25 07:45 Azithromycin 250 ml @ 125 mls/hr DAILY IV 03/26/25 10:00 03/26/25 10:00 125 MLS/HR Ceftriaxone Sodium 50 ml @ 100 mls/hr DAILY@09 IV 03/26/25 09:00 03/26/25 09:29 100 MLS/HR Acetaminophen 650 mg Q4HPRN PRN PO 03/26/25 08:00 Ondansetron HCl 4 mg Q4HPRN PRN IV 03/26/25 10:45 Pantoprazole Sodium 50 ml @ 10 mls/hr Q5H IV 03/26/25 13:30 03/27/25 03:51 10 MLS/HR Methadone HCl 5 mg BID PO 03/26/25 17:00 03/26/25 17:08 5 MG laboratory and microbiology Laboratory Tests 03/27/25 04:27 Test 03/27/25 04:27 Range/Units Serum Glucose 103 74-106 mg/dL Assessment/Plan Patient is a 64-year-old female who was brought to the hospital for generalized weakness and loss of consciousness. Patient is Malay speaking and information was obtained by talking to the son (at bedside). Patient was recently in the hospital and was discharged few weeks back after she was found to have metastatic cancer. As per son, since the patient was at home, she has been having repeated bowel movements daily which have been bloody and black. As per son, the patient became nonresponsive while going to the bathroom and the son decided to call 911. Reportedly EMS found the patient to be hypotensive, tachycardic with low oxygen saturation. In emergency room, the patient was found to have significant anemia and has received blood transfusion. Patient was recently found to have rectal mass with metastatic cancer. In recent admission, the patient was also found to have CVAs. It seems that at the time of discharge, the primary team started the patient on Eliquis for the reported CVAs (reportedly as per suggestion of Neurology). Patient has been on 5 mg Eliquis twice daily at home. Prior to previous admission, the patient was healthy with only past history of occasional back pain. Does have family history of different cancers. In previous admission, the patient was found to have stable mildly increased troponin which was assessed to reflect demand ischemia. Is not known to have any primary cardiac pathology. There is no previous diagnosis of any arrhythmia. Echocardiogram of March 09, 2025 had revealed left ventricular systolic function to be hyperdynamic with no specific valvular disease and normal right-sided pressures. Cardiology is involved for cardiac aspects of care. There has been no report of chest pain. There has been no report of shortness of breath. Pale patient. Somehow confused. Dry mucosa. No JVD. Lungs reveal rhonchi. No crackles. Cardiac: Tachycardic, no thrill/gallop. Abdomen: Soft. Increased bowel sounds. Extremities: Dorsalis pedis is 1+ bilateral with 1+ edema bilaterally. 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 Previously had flat mildly elevated troponin which was assessed to reflect demand physiology. Echocardiogram of March 09, 2025 had reported ejection fraction of 75%, hyperdynamic LV, trace MR/TR/PI. Right ventricular systolic pressure was 28 mm Hg WBC: 17 - 21.4 - 21.7 Hemoglobin: 7.2 - 10.7 - 10.2 D-dimer: 1.77 Creatinine: 0.51 - 0.46 BUN: 33 - 32 Potassium: 3.1 - 3.8 Sodium: 131 - 134 Serum Iron: 44 CRP: 5.92 Trop (high sensitive): 784 - 1149 - 1094 BNP: 50.11 TSH: 0.53 Chest x-ray reported: IMPRESSION: 1. Stable appearing diffuse bilateral multifocal nodular opacities, predominating within the lung bases. 2. Probable bilateral pleural effusions. CT of head revealed: IMPRESSION: 1. No acute intracranial hemorrhage or mass effect. 2. New small areas of loss of oconnor-white matter differentiation in the high posterior bilateral parietal lobes more pronounced in the left likely areas of evolving infarct. 3. Known bilateral frontal lobe and cerebellar infarcts seen to better advantage on recent MRI brain. EKG reveals sinus tachycardia with nonspecific ST-T changes Tele reveals sinus tachycardia Echocardiogram revealed: Left ventricle: Left ventricle was normal-sized with normal systolic function. LVEF was 65-70%. There was no gross wall motion abnormality. Right ventricle was normal-sized with normal systolic function. Both atria were normal-sized. Aortic valve was not well visualized. There was mild aortic valve insufficiency. There was no aortic stenosis. There was no mitral regurgitation. There was mild tricuspid regurgitation. Pulmonary valve was not well visualized. IVC was normal-sized with normal respiratory variation. Right ventricular systolic pressure was assessed at 35 mm Hg. There was no pericardial effusion. Patient is a 64-year-old female with advanced metastatic cancer who presented with hypotension. Reportedly has been having GI bleeding for many days. Was on Eliquis as outpatient (as per suggestion of Neurology on previous admission). Clinically the patient is cachectic. Is immunocompromised. Does have leukocytosis and sepsis could have contributed to the clinical picture also. GI bleeding/anemia/sepsis could have been the etiology for loss of consciousness/hypotension. Was found to have abnormal Trop. Presentation is not cardiac. Still, abnormal trop may point to component of non-stemi or Pulmonary Emboli. Recognizing co-morbidities and advanced / metastatic cancer, invasive ischemic work up is not suggested. Patient may have had repeated CVA also. Encephalopathy Presyncope Hypotension GI bleeding Significant anemia Abnormal Trop Sepsis Metastatic cancer Immunocompromised Cachectic Cardiac suggestion for management: Manage in ANGEL/ICU Fluid resuscitation Hold off anticoagulation for now Follow-up electrolytes and kidney function tests and correct abnormalities (keep potassium above 4 and magnesium above 2) ASA: 325 mg now and 81 mg daily if GI permits Consider CTA of lungs Management of sepsis as per primary team GI follow up Consider Hematology/Oncology evaluation and follow-up Neurology evaluation / follow up Considering the patient's significantly advanced metastatic cancer/history of CVA, you may consider hospice Further evaluation and management depends on the above and clinical course A total of 75 minutes was spent reviewing the patient record, examining the patient, making a diagnostic and therapeutic plan, discussing this plan with medical personnel, following up on diagnostic studies and following the patient for clinical stability excluding any and all procedures. At least 50% of this time was spent in direct, [id number] contact. Thank you for allowing me to participate in this patient's care. Further recommendations will depend on patient's clinical course. Please do not hesitate to contact me if you have any questions or concerns. This medical document was created using electronic medical record system with [employer] computerized dictation system. Although this document has been carefully reviewed, there may still be some phonetic and typographical errors. These areas are purely typographical due to the imperfection of the software programs, and do not reflect any compromise in the patient's medical care Plan discussed with: Son (at bedside), Other (nurse) CC Plasma Assessment Blood Product Administration S: [id number] FARIDA MOTT MD Mar 27, 2025 08:27
--- NOTE | 2025-03-27 10:32 | DVH ---
CLINICAL INFORMATION: 64 years old, Female; gi bleed. TECHNIQUE: Axial CT images of the abdomen and pelvis were obtained after the uneventful administratio n of 100 mL Omnipaque 300 IV contrast. Coronal and sagittal reformatted images were obtained, reviewe d, and stored. All CT scans at this medical facility are performed using dose modulation techniques a s appropriate to a performed exam including the following: Automated exposure control was utilized; a djustment of the MA and/or KV according to patient size; and use of iterative reconstruction techniqu e. CTDIvol = 7.63 mGy DLP = 421.24 mGy-cm COMPARISON: Prior noncontrast enhanced CT of the abdomen and pelvis dated 03/08/2025. FINDINGS: Motion artifact limits evaluation. Lung bases: Innumerable pulmonary nodules in the lung bases due to metastatic disease. Small bilatera l pleural effusions with overlying atelectasis. Liver: Extensive hepatic metastatic disease with numerous lesions throughout the liver. Biliary: No calcified gallstones or biliary ductal dilatation. Spleen: Multiple hypo enhancing lesions in the spleen. Can not exclude metastatic disease. Pancreas: Motion artifact limits evaluation. Moderate pancreatic atrophy. Possible cyst along the ant erior aspect of the body of the pancreas measuring up to 1.4 cm, although poorly evaluated due to mot ion. Adrenal glands: Unremarkable. No mass. Kidneys: No hydronephrosis. Small linear areas of hypo enhancement in the periphery of both kidneys, possible small infarcts. Aorta/Vascular: Minimal atherosclerotic calcification no abdominal aortic aneurysm. Retroperitoneum: Multiple enlarged para-aortic and interaortocaval lymph nodes, of which demonstrate low-density, may be due to necrosis. The largest measure up to 1.6 x 1.4 cm of the para-aortic statio n 1.4 x 1.3 cm of the interaortocaval station. Peripherally enhancing mass along the deep fibers of t he left psoas muscle measuring up to 1.8 cm, suspected metastasis. Additional peripherally enhancing masses are seen in the pelvis, including in the left hemipelvis along the posterior aspect of the lef t iliopsoas muscle measuring up to 2.9 cm in greatest dimension, along the left side of the uterus me asuring up to 3.5 cm, along the posterior aspect of the rectum measuring up to 2.5 cm, and multiple a dditional metastatic implants and abnormal lymph nodes. Bowel/mesentery: No small bowel obstruction. No free air or free fluid. Appendix is not visualized. T here is a catheter in the rectum with associated balloon. There is moderate perirectal stranding. Pelvic organs: Heterogeneous uterus with multiple peripherally enhancing uterine masses visualized, w ith the largest along the left side of the uterus measuring up to 3.5 cm. Bladder: Dockery catheter extends into the bladder. Gas within the bladder is likely due to Dockery cath eter placement. Abdominal wall: Mild diffuse body wall edema / anasarca. Prominent right inguinal lymph node measures up to 1.9 x 1.3 cm, possible lymph node metastasis. Bones: No acute fracture or focal intraosseous lesion. IMPRESSION: 1. Motion limited study. 2. Extensive metastatic disease involving the lungs, liver, possibly the spleen, retroperitoneum, pel vis, uterus, and additional areas as described above. 3. Moderate stranding adjacent to the rectum, likely inflammatory in nature, including proctitis. 4. Cyst along the body of the pancreas, possible pseudocyst or possibly cystic neoplasm.Bilateral ple ural 5. Effusions with overlying atelectasis. 6. Suspected small bilateral renal infarcts. 7. Additional findings as detailed above.
--- NOTE | 2025-03-27 12:33 | DVHPN2 ---
Progress Note Date Seen: Mar 27, 2025 Medical Necessity Reason Pt with a Central, PICC or Fol: No Subjective Review of Systems: Not Done Objective vital signs Vital Sign Date Time Temp Pulse Resp B/P (MAP) Pulse Ox O2 Delivery O2 Flow Rate FiO2 03/27/25 08:47 106 03/27/25 06:00 120/73 (89) 94 03/27/25 04:00 98.7 98.7 03/26/25 20:00 Nasal Cannula* 4 36 Total Intake and Output 03/26/25 03/26/25 03/27/25 15:00 23:00 07:00 Intake Total 930 ml 1255 ml 70 ml Output Total 200 ml 150 ml 500 ml Balance 730 ml 1105 ml -430 ml medications Current Medications Medications Dose Ordered Sig/Pedro Route Start Time Stop Time Status Last Admin Dose Admin Nitroglycerin 0.4 mg Q5MINP PRN SL 03/26/25 07:45 Morphine Sulfate 2 mg Q30M PRN IV 03/26/25 07:45 Azithromycin 250 ml @ 125 mls/hr DAILY IV 03/26/25 10:00 03/27/25 09:33 125 MLS/HR Ceftriaxone Sodium 50 ml @ 100 mls/hr DAILY@09 IV 03/26/25 09:00 03/27/25 09:33 100 MLS/HR Acetaminophen 650 mg Q4HPRN PRN PO 03/26/25 08:00 Ondansetron HCl 4 mg Q4HPRN PRN IV 03/26/25 10:45 Pantoprazole Sodium 50 ml @ 10 mls/hr Q5H IV 03/26/25 13:30 03/27/25 09:33 10 MLS/HR Methadone HCl 5 mg BID PO 03/26/25 17:00 03/27/25 09:32 5 MG Examination: GENERAL:Normal, LUNGS:Normal, CVS:Normal, ABDOMEN:Normal (Melena noted), SKIN:Normal, NEURO:Normal laboratory and microbiology Laboratory Tests 03/27/25 04:27 Test 03/27/25 04:27 Range/Units Serum Glucose 103 74-106 mg/dL Microbiology Date/Time Source Procedure Growth Status 03/26/25 20:30 Nose MRSA Screen - Final Complete Labs and/or images reviewed: Labs reviewed by me, Image(s) reviewed by me Problem List/Assessment/Plan Problem List/Assessment/Plan 1. syncope likely secondary to blood loss anemia cardiac consult, 2. Hepatic metastatic disease Monitor, oncology consult, GI consult 3. colorectal cancer metastasis to liver and lungs Monitor 4. Elevated troponin Monitor, cardiology consult, PPI, monitor EKG 5. Elevated liver enzymes Monitor, radiology consult for liver biopsy 6. hx of CVA Monitor 7. Coagulopathy 8. blood loss anemia transfuse for hgb below 7 9. sepsis likely from PNA gram negative or positive IV abx 10. moderate protein deficiency monitor 11. hyponatremia 12. acute metabolic encephalopathy monitor neuro status 13. GI bleed likely upper GI consult, PPI 14. Non-STEMI likely type 2 Cardiac consult Subjective: Awake and alert Objective: Patient speaks Malay history was obtained from son who translated at bedside. Patient was initially admitted for GI bleeding. Patient was recently DC, during prior admission she was found to have colorectal cancer with metastasis to the lungs and liver. Patient was going to have colectomy; However, surgeon opted not to proceed as she was found to have CVA and neurology recommended placing patient on anticoagulation (Eliquis 5 mg BID) to treat cougulopathy from cancer. Patient was sent home with eliquis and presents during this admission for GI bleed with gross amounts of melena for over a week. patient was placed on protonix gtt and hbg is stable at 10.1 after receiving 2 units PRBCs . Patient was subsequently found to have NSTEMI likely type 2 from demand ischemia, cardiology place patient on aspirin under the clearance of GI. Patient is also septic from PNA on IV abx, but is respiratory montelongo stable. PLAN: hold anticougulation, start aspirin per cardiology, pending brain MRI, consult neurology, continue with protonix gtt, transfuse for hgb below 7, consider hospice, continue with IV abx, start liquid diet per GI Plan discussed with: Patient My Orders My Orders Orders - AQUILES WALKER [employer] Procedure Category Date Status Time Pantoprazole PHA 03/26/25 In Process 40mg/50ml Ns Ae 13:30 Electrocardigram EKG 03/26/25 Logged 14:[address] 03/26/25 Resulted 14:23 Methadone Hcl Tablet PHA 03/26/25 In Process (Methadone Hcl Tabl 17:00 Transfer Orders XFER 03/26/25 Transmitted 16:16 Free T4 (Free LAB 03/26/25 In Process Thyroxine) 17:11 Brain Head Wo Contrast MRI 03/27/25 Logged 06:37 *Cons[address] Dr[address] Bennett CONS 03/27/25 Transmitted Carter 06:37 Ct Ab Pel With Iv Con CT 03/27/25 Resulted Only 06:43 Hemoglobin & LAB 03/27/25 Logged Hematocrit 12:30 Date of Service: Mar 27, 2025 Billing Provider: EVELIA HOPKINS MD Common Visit Codes: [id number] INP/OBS CARE (MOD) CC Plasma Assessment Blood Product Administration S: [id number] AQUILES WALKER [employer]EL[employer] Mar 27, 2025 12:33
--- NOTE | 2025-03-27 13:12 | DVHPN2 ---
Progress Note - Dictate Date Seen: Mar 27, 2025 Medical Necessity Reason Pt with a Central, PICC or Fol: No Subjective Patient seen at bedside, resting comfortably Yesterday patient had a moderate amount of fresh rectal bleeding Currently through the rectal tube she has more dark and formed stools She denies any nausea vomiting or abdominal pain Patient was on Eliquis or a blood thinner prior to admission which has been stopped Her troponins are elevated and black top roller would like to put her on aspirin vital signs Vital Sign Date Time Temp Pulse Resp B/P (MAP) Pulse Ox O2 Delivery O2 Flow Rate FiO2 03/27/25 12:54 107 03/27/25 06:00 27 120/73 (89) 94 03/27/25 04:00 98.7 98.7 03/26/25 20:00 Nasal Cannula* 4 36 Total Intake and Output 03/26/25 03/26/25 03/27/25 15:00 23:00 07:00 Intake Total 930 ml 1255 ml 70 ml Output Total 200 ml 150 ml 500 ml Balance 730 ml 1105 ml -430 ml medications Current Medications Medications Dose Ordered Sig/Pedro Route Start Time Stop Time Status Last Admin Dose Admin Nitroglycerin 0.4 mg Q5MINP PRN SL 03/26/25 07:45 Morphine Sulfate 2 mg Q30M PRN IV 03/26/25 07:45 Azithromycin 250 ml @ 125 mls/hr DAILY IV 03/26/25 10:00 03/27/25 09:33 125 MLS/HR Ceftriaxone Sodium 50 ml @ 100 mls/hr DAILY@09 IV 03/26/25 09:00 03/27/25 09:33 100 MLS/HR Acetaminophen 650 mg Q4HPRN PRN PO 03/26/25 08:00 Ondansetron HCl 4 mg Q4HPRN PRN IV 03/26/25 10:45 Pantoprazole Sodium 50 ml @ 10 mls/hr Q5H IV 03/26/25 13:30 03/27/25 09:33 10 MLS/HR Methadone HCl 5 mg BID PO 03/26/25 17:00 03/27/25 09:32 5 MG objective General Appearance: Alert, Oriented X3, Cooperative, No acute distress Respiratory: Clear to auscultation, Normal air movement Cardiovascular: Regular rate, Normal S1, Normal S2 Abdominal: Normal bowel sounds, soft nontender extremities show some unilateral weakness laboratory and microbiology Laboratory Tests 03/27/25 04:27 Test 03/27/25 04:27 Range/Units Serum Glucose 103 74-106 mg/dL Problems(with codes): (1) Elevated CA 19-9 level (2) Metastatic neoplasm (3) CVA (cerebral vascular accident) (4) Rectal mass (5) Colorectal carcinoma (6) GI bleed Prognosis Plan Hold her anticoagulation Okay to start her on aspirin Protonix 40 mg p.o. daily Start with clear liquid diet and advance to full liquid if tolerated Continue supportive care I believe this patient may not be able to handle any chemotherapy for her metastatic cancer Likely she will be benefit from a hospice placement Plan discussed with: Patient, Son CC Plasma Assessment Blood Product Administration S: [id number] ROBERT RAMIREZ MD Mar 27, 2025 13:12
[2025-03-27 13:30] LABS: Hematocrit 30.3 % (36.0-46.0); Hemoglobin 10.1 g/dL (12.2-16.2)
--- NOTE | 2025-03-27 16:42 | DVH ---
EXAM: MRI BRAIN HEAD WO CONTRAST; DATE: 03/27/2025 03:58 PM HISTORY: r.o CVA COMPARISON: MRI BRAIN HEAD WO CONTRAST on DOS: 03/13/25 TECHNIQUE: MRI was performed utilizing multiple appropriate imaging planes and pulse sequences. FINDINGS: SUPRATENTORIAL REGION: New small scattered foci of acute ischemia noted in the bilateral frontoparie mirza and occipital lobes. Previous foci of bilateral ischemia noted most prominence in the right centr um semiovale. Small areas of laminar necrosis noted in the right frontal lobe. POSTERIOR FOSSA: Some new small foci of acute ischemia in the bilateral cerebellar lobes superimpose d on the previously seen acute ischemic regions. BRAINSTEM: Unremarkable. SELLAR/SUPRASELLAR REGION: Unremarkable. VENTRICLES, CISTERNS, SULCI: Age-appropriate. ORBITS: Unremarkable. PARANASAL SINUSES: Unremarkable. MASTOID AIR CELLS: Unremarkable. VASCULATURE: Unremarkable. BONES/ SOFT TISSUES: Unremarkable. OTHER: None. IMPRESSION: 1. Interval progression of bilateral multifocal multicompartmental acute ischemia with no evidence of hemorrhagic transformation. No intra-axial or extra-axial hemorrhage noted.
[2025-03-27] MEDS: ASPirin 325 MG TAB PO ONE (18:22)
--- NOTE | 2025-03-27 18:37 | DVH ---
Bilateral lower extremity venous duplex Clinical History: r.o dvt Comparison: None Technique: Duplex Doppler evaluation of the deep venous systems of both lower extremities from the common femora l veins to the popliteal veins including color Doppler and spectral/pulsed waveform analysis was perf ormed. Findings: RIGHT SIDE: The common femoral vein demonstrates appropriate compressibility and waveform variability. There is compressibility/patency of the great saphenous vein at the proximal thigh. The femoral vein demonstrates appropriate compressibility and waveform variability. The deep femoral vein demonstrates appropriate compressibility and waveform variability. The popliteal vein demonstrates appropriate compressibility and waveform variability. There is normal compressibility at the tibioperoneal trunk. LEFT SIDE: The common femoral vein demonstrates appropriate compressibility and waveform variability. There is compressibility/patency of the great saphenous vein at the proximal thigh. The femoral vein demonstrates appropriate compressibility and waveform variability. The deep femoral vein demonstrates appropriate compressibility and waveform variability. The popliteal vein demonstrates appropriate compressibility and waveform variability. There is normal compressibility at the tibioperoneal trunk. Impression: 1. No right or left femoropopliteal venous thrombosis. HS:Y
--- NOTE | 2025-03-27 20:20 | DVHINCON2 ---
Date of service: Mar 27, 2025 Referring Physician ED Family History: Asthma G8 MOTHER Osteoporosis G8 FATHER Allergies: Coded Allergies: NO KNOWN ALLERGIES (Unverified , 03/08/25) Home Meds Active Scripts Morphine Sulfate (Ms Contin) 30 Mg Tab, 1 TAB PO DAILY for 30 Days, #30 TAB Prov:JUDY JACK BLIND AIDE 03/16/25 Naloxone HCl (Narcan) 4 Mg/0.1 Ml Spr, 4 MG NA UD for 30 Days, #1 SPRAY Prov:JUDY JACK BLIND AIDE 03/15/25 Senna (Senokot) 8.6 Mg Tab, 1 TAB PO BID for 30 Days, #60 TAB Prov:JUDY JACK BLIND AIDE 03/15/25 Ondansetron Odt 4MG Tab (ZOFRAN PO) 4 Mg Tb, 4 MG PO Q6HP PRN for 30 Days, #120 TAB ODT TAB-DISSOLVE IN MOUTH, THEN SWALLOW Prov:JUDY JACK BLIND AIDE 03/15/25 Apixaban Base (ELIQUIS) 5 Mg Tab, 5 MG PO BID for 30 Days, #60 TAB Prov:JUDY JACK BLIND AIDE 03/15/25 Pantoprazole Sodium Sesquihydr (Protonix) 40 Mg Tab, 40 MG PO DAILY, #30 TAB Prov:JUDY JACK BLIND AIDE 03/15/25 Atorvastatin Calcium (ATORVASTATIN CALCIUM) 20 Mg Tab, 20 MG PO HS for 30 Days, #30 TAB Prov:JUDY JACK BLIND AIDE 03/15/25 Current Medications Current Medications Medications (Trade) Dose Ordered Sig/Pedro Route PRN Reason Start Time Stop Time Status Last Admin Aspirin 81 mg DAILY PO 03/28/25 10:00 Atorvastatin Calcium (Lipitor) 20 mg HS PO 03/27/25 22:00 Vital Signs Vital Signs Date Time Temp Pulse Resp B/P (MAP) Pulse Ox O2 Delivery O2 Flow Rate FiO2 03/27/25 18:28 112 03/27/25 17:00 17 106/69 (81) 94 03/27/25 16:00 98.2 98.2 03/27/25 08:00 Nasal Cannula* 4 36 Labs/Diagnostic Data Labs Test 03/27/25 13:07 03/27/25 04:27 03/26/25 21:51 03/26/25 13:36 Range/Units Hemoglobin 10.1 L 12.2-16.2 g/dL Hematocrit 30.3 L 36.0-46.0 % White Blood Count 21.7 H 4.4-10.8 10^3/uL Red Blood Count 3.42 L 4.0-5.20 10^6/uL Mean Corpuscular Volume 87.4 80.0-100.0 fL Mean Corpuscular Hemoglobin 29.7 28.0-32.0 pg Mean Corpuscular Hemoglobin Concent 34.0 32.0-36.0 g/dL Red Cell Distribution Width 15.9 H 11.8-14.3 % Platelet Count 210 140-450 10^3/uL Mean Platelet Volume 6.9 6.9-10.8 fL Neutrophils (%) (Auto) 80.9 H 37.0-80.0 % Lymphocytes (%) (Auto) 5.0 L 10.0-50.0 % Monocytes (%) (Auto) 7.4 0.0-12.0 % Eosinophils (%) (Auto) 6.4 0.0-7.0 % Basophils (%) (Auto) 0.3 0.0-2.0 % Neutrophils # (Auto) 17.6 H 1.6-8.6 10 ^3/uL Lymphocytes # (Auto) 1.1 0.4-5.4 10 ^3/uL Monocytes # (Auto) 1.6 H 0-1.3 10 ^3/uL Eosinophils # (Auto) 1.4 H 0-0.8 10 ^3/uL Basophils # (Auto) 0.1 0-0.2 10 ^3/uL Nucleated Red Blood Cells 0.1 % Sodium Level 134 L 136-145 mmol/L Potassium Level 3.8 3.5-5.1 mmol/L Chloride Level 97 L 98-107 mmol/L Carbon Dioxide Level 28 20-31 mmol/L Anion Gap 9 5-15 Blood Urea Nitrogen 32 H 9-23 mg/dL Creatinine 0.46 L 0.550-1.02 mg/dL Glomerular Filtration Rate Calc 107 >90 mL/min BUN/Creatinine Ratio 69.6 H 10.0-20.0 Serum Glucose 103 74-106 mg/dL Calcium Level 8.0 L 8.7-10.4 mg/dL Magnesium Level 2.0 1.6-2.6 mg/dL Total Bilirubin 0.8 0.2-1.0 mg/dL Aspartate Amino Transferase (AST) 48 H 13-40 U/L Alanine Aminotransferase (ALT) 29 7-40 U/L Alkaline Phosphatase 543 H 46-116 U/L Total Protein 4.4 L 5.7-8.2 g/dL Albumin 2.5 L 3.2-4.8 g/dL Troponin I High Sensitivity 784 *H </=34 ng/L D-Dimer, Quantitative 1.77 H 0.0-0.49 mg/L FEU B-Type Natriuretic Peptide 50.11 0-100 pg/mL Thyroid Stimulating Hormone (TSH) 0.53 L 0.55-4.78 uIU/mL Test 03/26/25 03:05 03/26/25 02:53 Range/Units Urine Color Yellow Yellow Urine Clarity Clear Clear Urine pH 6.0 5.0-9.0 Urine Specific [place] 1.025 1.001-1.035 Urine Protein Negative Negative Urine Ketones Negative Negative Urine Blood Negative Negative /uL Urine Nitrite Negative Negative Urine Bilirubin Negative Negative Urine Urobilinogen 3 H Negative mg/dL Urine Leukocyte Esterase Negative Negative /uL Urine RBC None seen 0 - 4 /hpf Urine Microscopic WBC 4 0-5 /HPF Urine Squamous Epithelial Cells None seen <5 /hpf Urine Bacteria None seen None Seen /hpf Urine Hyaline Casts Many 0 - 2 /lpf Urine Mucus Few None Seen Urine Glucose Normal Normal mg/dL Prothrombin Time 14.9 H 9.3-11.8 sec Prothrombin Time INR 1.46 H 0.9-1.15 Activated Partial Thromboplast Time 30.6 24.5-34.5 SEC Iron Level 44 L 50-170 ug/dL Total Iron Binding Capacity 185 L 250-425 ug/dL Percent Iron Saturation 23.8 15-50 % C-Reactive Protein High Sensitivity 5.92 H <1.0 mg/dL Microbiology Date/Time Source Procedure Growth Status 03/26/25 20:30 Nose MRSA Screen - Final Complete Plan/Recommendation [facility] Note # Demographics Consult Type: General Neurology Patient Location: Emergency Room First Name: SERENE CARDONA Last Name: GABY Date of : 1960 Age: 65 Gender: Female Facility: [facility] Time of Initial Page (Pound Time): 03/27/2025 19:31 Time of Return Call (Pound Time): 03/27/2025 19:31 # HPI History: 65 year old with PMH of metastatic cancer of unknown primary, that I was requested to evaluate for acute stroke. The patient had a stroke on March 13, notably imaging demonstrating multi- focal bilateral strokes with clinical findings of left sided weakness. Most recently the patient has had bloody bowel movements and anemia, requiring blood transfusion. SHe came to the ED because of the GI bleed and an episode of passing out. THey got MRI of the brain which demonstrated new areas of acute stroke. The history was acquired from the patient's son who also assisted with examination. # Scores Time of exam and NIHSS (Pound Time): 03/27/2025 20:01 Level of Consciousness 1a: [0] = Alert; keenly responsive LOC Questions 1b: [0] = Answers both questions correctly LOC Commands 1c: [0] = Performs both tasks correctly Best Gaze 2: [0] = Normal Visual 3: [0] = No visual loss Facial Palsy 4: [0] = Normal symmetrical movements Motor Arm Left 5a: [1] = Drift Motor Arm Right 5b: [0] = No drift Motor Leg Left 6a: [0] = No drift Motor Leg Right 6b: [0] = No drift Limb Ataxia 7: [0] = Absent Sensory 8: [0] = Normal Best Language 9: [0] = No aphasia Dysarthria 10: [0] = Normal Extinction and Inattention 11: [0] = No abnormality NIHSS Total: 1 # ROS Neurologic: - see HPI # PMH-FH-SH Past Medical History: metastatic colon cancer # Data MRI: progressive new areas of acute ischemic stroke present bilaterally # Assessment Impression: - Ischemic Stroke (Acute) The patient is in a difficult situation with likely significant hypercoaguable state from her metastatic cancer, but she is having strokes through the anticoagulation and yet is having complication of GI bleed. Given the more imemdiate risk of GI bleed, it is best for her to discontinue the anticoagulation and do just aspirin. # Plan Thrombolytic/Intervention: NOT IV Thrombolysis or IA Intervention candidate Thrombolytic Exclusion (< 3 hour window): - stroke within 3 months - on anticoagulation Intraarterial Exclusion: - no large vessel occlusion (LVO) Other: - If patient has any neurological deterioration please call me back immediately Additional Recommendations: SUMMARY: == the patient is high risk for recurrence stroke, but the anticoagulation is causing GI bleed which is more immediate risk to her life == d/c anticoagulation and transition to baby aspirin alone. Could also do dual antiplatelet therapy with aspirin and plavix. Disposition: admit # Logistics Attestation of consult completion: The patient is located at: [facility]. Facility staff participated in the visit. I performed this telemedicine visit from my offsite office utilizing interactive 2 way audio and visual telecommunication technology. Consent: Verbal consent was obtained from the patient and/or family for this encounter. Total time spent in telemedicine encounter: I spent 20 minutes reviewing clinical data and/or imaging, obtaining history, examining the patient, communicating with the onsite care team, and in preparation of this report. Critical Care time: 15 minutes of this encounter were critical care time. Due to a high probability of clinically significant, life-threatening neurologic deterioration, the patient required my highest level of preparedness to intervene emergently. I spent this critical care time managing the patient in conjunction with on-site providers who requested my consultation. In addition to the above, this critical care time included recommendation and review of studies, including imaging; arranging an urgent treatment and management plan with on-site providers; evaluation of patient's response to treatment; and documentation. This critical care time was performed to assess and manage the high probability of imminent, life-threatening deterioration that could result in neurologic catastrophe. # Demographics First Name: SERENE CARDONA Last Name: GABY Facility: [facility] Plan discussed with: Patient JACOB DUTTON MD Mar 27, 2025 20:19
--- NOTE | 2025-03-27 21:08 | DVHINCON2 ---
Date of service: Mar 27, [address] Nathaniel Page Reason for Consultation Possible CVA History of Present Illness Ms. 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 At this time, she was awake, oriented to person, place, with reasonable social skills, the history is obtained from her son Her son relates her problems started about two weeks ago. On 03/08/2025, she was brought to the [facility] for general weakness, with left-sided more affected, cough, in the hospital, MRI confirmed multiple strokes on 03/13/2025. When she was discharged home on 03/16/2025, the patient was better and she was discharged with Eliquis But the patient was was not doing well at home, she had numerous bloody diarrhea every single day, and she keeps having general weakness, on , with the patient was helped to bathroom, she passed out, and in the ER, the patient was found to have low hemoglobin, and she was better after blood transfusion. Hypotension was noticed as well. She was always mentally fine, but on 03/27/25, she was confused, she was asked her son to take her away from the emergency room because people were listening to her, Follow-up MR brain scan dated 03/27/25 showed new strokes compared to the one on 03/13/2025 [facility] neurology consultation, 03/27/2025: Discontinue anticoagulation, transition to baby aspirin alone, dura antiplatelet agent with aspirin and the Plavix was suggested Urinalysis, 03/26/2025: WBC: Four, urine leukocyte esterase: Negative WBC/HB/PLT/MCV, 03/27/2025: 21. 7/10.2/210/87.4 PT/INR/PTT, 03/26/2025: 14.9/1.46/30.6 BUN/CR, 03/26/2025: 33/0.51, 03/27/2025: 32/1.46 TBI/AST/ALT/AP, 03/27/25: 0.8/48/29/543 TSH, 03/26/25: 0.53 CT head, 03/26/2025: 1. No acute intracranial hemorrhage or mass effect. 2. New small areas of loss of oconnor-white matter differentiation in the high posterior bilateral parietal lobes more pronounced in the left likely areas of evolving infarct. 3. Known bilateral frontal lobe and cerebellar infarcts seen to better advantage on recent MRI brain. Chest CT, 03/09/2025: 1. Numerous nodular densities are seen throughout both lungs suggestive of metastatic disease. The largest nodule measures approximately 1.2 cm in the right middle lobe. There is also probable superim posed pneumonia bilaterally. 2. Mediastinal lymphadenopathy 3. Numerous hypodense masses are also seen throughout the liver CT, abdomen/pelvis, 03/27/2025: 1. Motion limited study. 2. Extensive metastatic disease involving the lungs, liver, possibly the spleen, retroperitoneum, pelvis, uterus, and additional areas as described above. 3. Moderate stranding adjacent to the rectum, likely inflammatory in nature, including proctitis. 4. Cyst along the body of the pancreas, possible pseudocyst or possibly cystic neoplasm.Bilateral pleural 5. Effusions with overlying atelectasis. 6. Suspected small bilateral renal infarcts. MRI head, 03/13/2025: Multifocal areas of diffusion restriction in the right > left cerebellum, right > left cerebrum (parietal, frontal, occipital lobes) consistent with acute infarct. Foci of abnormal susceptibility hypointensity is present along the left parietal lobe could be microhemorrhage. MRI head, 03/27/2025: Interval progression of bilateral multifocal multicompartmental acute ischemia with no evidence of hemorrhagic transformation. 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 Past Surgical History Family History: Asthma G8 MOTHER Osteoporosis G8 FATHER Family History Diabetes, lung cancer, asthma, osteoporosis Social History She was not a tobacco smoker, no history of alcohol or recreational substance abuse Allergies: Coded Allergies: NO KNOWN ALLERGIES (Unverified , 03/08/25) Home Meds Active Scripts Morphine Sulfate (Ms Contin) 30 Mg Tab, 1 TAB PO DAILY for 30 Days, #30 TAB Prov:JUDY JACK Rut SENIOR ADVOCATE 03/16/25 Naloxone HCl (Narcan) 4 Mg/0.1 Ml Spr, 4 MG NA UD for 30 Days, #1 SPRAY Prov:GUEROJUDY M SENIOR ADVOCATE 03/15/25 Senna (Senokot) 8.6 Mg Tab, 1 TAB PO BID for 30 Days, #60 TAB Prov:JUDY JACK SENIOR ADVOCATE 03/15/25 Ondansetron Odt 4MG Tab (ZOFRAN PO) 4 Mg Tb, 4 MG PO Q6HP PRN for 30 Days, #120 TAB ODT TAB-DISSOLVE IN MOUTH, THEN SWALLOW Prov:JUDY JACK SENIOR ADVOCATE 03/15/25 Apixaban Base (ELIQUIS) 5 Mg Tab, 5 MG PO BID for 30 Days, #60 TAB Prov:JUDY JACK SENIOR ADVOCATE 03/15/25 Pantoprazole Sodium Sesquihydr (Protonix) 40 Mg Tab, 40 MG PO DAILY, #30 TAB Prov:JUDY JACK SENIOR ADVOCATE 03/15/25 Atorvastatin Calcium (ATORVASTATIN CALCIUM) 20 Mg Tab, 20 MG PO HS for 30 Days, #30 TAB Prov:JUDY JACK SENIOR ADVOCATE 03/15/25 Current Medications Current Medications Medications (Trade) Dose Ordered Sig/Pedro Route PRN Reason Start Time Stop Time Status Last Admin Aspirin 81 mg DAILY PO 03/28/25 10:00 Atorvastatin Calcium (Lipitor) 20 mg HS PO 03/27/25 22:00 Review of Systems As above, the other systems are negative Vital Signs Vital Signs Date Time Temp Pulse Resp B/P (MAP) Pulse Ox O2 Delivery O2 Flow Rate FiO2 03/27/25 19:30 98.1 112 22 112/58 (76) 94 98.1 03/27/25 19:30 Nasal Cannula* 3 32 Physical Exam GENERAL EXAM: General: the patient is well developed and nourished. No acute distress. HEENT: Normocephalic, neck is supple, no carotid bruits. No mass. RESPIRATORY: Normal respiratory effort with symmetrical lung expansion. Lungs clear to auscultation. CARDIOVASCULAR: Regular rate and rhythm with no murmurs. S1, S2. ABDOMEN: Soft, nontender, normal bowel sound NEUROLOGICAL: MENTAL STATUS: Awake and alert. Oriented to person, place SPEECH, LANGUAGE, HIGHER CORTICAL FUNCTION: no aphasia or dysathria. CRANIAL NERVES: #2: Intact visual walsh to confrontation. The optic discs were sharp. #3,4,6: Pupils are equal, round and reactive. EOMs full and conjugate. #5: Facial sensation intact in all three divisions bilaterally. Mandibular strength intact. #7: Facial muscles symmetrical and strength intact. #8: Hearing grossly normal to voice. #9,10: Uvula and soft palate rise in the midline. Swallow and voice are normal. #11: Trapezius and sternomastoid strength intact bilaterally. #12: Tongue midline. No fasciculations or atrophy. SENSATION: Sensation to touch and pinprick is normal. MOTOR: Normal tone in the upper and lower extremity. Normal muscle bulk. No fasciculations. No abnormal movements or posturing. Muscle strength of the major groups in the right extremities is 4/5. Muscle strength of the major groups in the left extremities is 3-4/5. REFLEXES: Deep tendon reflexes are symmetrical. No pathological reflexes. CEREBELLAR/COORDINATION: Finger to nose is fine bilaterally GAIT/STATION: deferred. Labs/Diagnostic Data Labs Test 03/27/25 13:07 03/27/25 04:27 03/26/25 21:51 03/26/25 13:36 Range/Units Hemoglobin 10.1 L 12.2-16.2 g/dL Hematocrit 30.3 L 36.0-46.0 % White Blood Count 21.7 H 4.4-10.8 10^3/uL Red Blood Count 3.42 L 4.0-5.20 10^6/uL Mean Corpuscular Volume 87.4 80.0-100.0 fL Mean Corpuscular Hemoglobin 29.7 28.0-32.0 pg Mean Corpuscular Hemoglobin Concent 34.0 32.0-36.0 g/dL Red Cell Distribution Width 15.9 H 11.8-14.3 % Platelet Count 210 140-450 10^3/uL Mean Platelet Volume 6.9 6.9-10.8 fL Neutrophils (%) (Auto) 80.9 H 37.0-80.0 % Lymphocytes (%) (Auto) 5.0 L 10.0-50.0 % Monocytes (%) (Auto) 7.4 0.0-12.0 % Eosinophils (%) (Auto) 6.4 0.0-7.0 % Basophils (%) (Auto) 0.3 0.0-2.0 % Neutrophils # (Auto) 17.6 H 1.6-8.6 10 ^3/uL Lymphocytes # (Auto) 1.1 0.4-5.4 10 ^3/uL Monocytes # (Auto) 1.6 H 0-1.3 10 ^3/uL Eosinophils # (Auto) 1.4 H 0-0.8 10 ^3/uL Basophils # (Auto) 0.1 0-0.2 10 ^3/uL Nucleated Red Blood Cells 0.1 % Sodium Level 134 L 136-145 mmol/L Potassium Level 3.8 3.5-5.1 mmol/L Chloride Level 97 L 98-107 mmol/L Carbon Dioxide Level 28 20-31 mmol/L Anion Gap 9 5-15 Blood Urea Nitrogen 32 H 9-23 mg/dL Creatinine 0.46 L 0.550-1.02 mg/dL Glomerular Filtration Rate Calc 107 >90 mL/min BUN/Creatinine Ratio 69.6 H 10.0-20.0 Serum Glucose 103 74-106 mg/dL Calcium Level 8.0 L 8.7-10.4 mg/dL Magnesium Level 2.0 1.6-2.6 mg/dL Total Bilirubin 0.8 0.2-1.0 mg/dL Aspartate Amino Transferase (AST) 48 H 13-40 U/L Alanine Aminotransferase (ALT) 29 7-40 U/L Alkaline Phosphatase 543 H 46-116 U/L Total Protein 4.4 L 5.7-8.2 g/dL Albumin 2.5 L 3.2-4.8 g/dL Troponin I High Sensitivity 784 *H </=34 ng/L D-Dimer, Quantitative 1.77 H 0.0-0.49 mg/L FEU B-Type Natriuretic Peptide 50.11 0-100 pg/mL Thyroid Stimulating Hormone (TSH) 0.53 L 0.55-4.78 uIU/mL Test 03/26/25 03:05 03/26/25 02:53 Range/Units Urine Color Yellow Yellow Urine Clarity Clear Clear Urine pH 6.0 5.0-9.0 Urine Specific [place] 1.025 1.001-1.035 Urine Protein Negative Negative Urine Ketones Negative Negative Urine Blood Negative Negative /uL Urine Nitrite Negative Negative Urine Bilirubin Negative Negative Urine Urobilinogen 3 H Negative mg/dL Urine Leukocyte Esterase Negative Negative /uL Urine RBC None seen 0 - 4 /hpf Urine Microscopic WBC 4 0-5 /HPF Urine Squamous Epithelial Cells None seen <5 /hpf Urine Bacteria None seen None Seen /hpf Urine Hyaline Casts Many 0 - 2 /lpf Urine Mucus Few None Seen Urine Glucose Normal Normal mg/dL Prothrombin Time 14.9 H 9.3-11.8 sec Prothrombin Time INR 1.46 H 0.9-1.15 Activated Partial Thromboplast Time 30.6 24.5-34.5 SEC Iron Level 44 L 50-170 ug/dL Total Iron Binding Capacity 185 L 250-425 ug/dL Percent Iron Saturation 23.8 15-50 % C-Reactive Protein High Sensitivity 5.92 H <1.0 mg/dL Microbiology Date/Time Source Procedure Growth Status 03/26/25 20:30 Nose MRSA Screen - Final Complete Assessment Multiple strokes confirmed with MRI on 03/13/2025 New multiple strokes according to MRI on 03/27/25 Left hemiparesis secondary to strokes Stroke secondary to malignancy related hypercoagulation GI bleeding, likely secondary to Eliquis Anemia secondary to GI bleeding Colon cancer Plan/Recommendation Monitoring Supportive treatment Telemetry Lipitor profile Aspirin 81 mg daily Lipitor 20 mg daily GI on case Cardiology on case Consider physical therapy evaluation later More recommendation per clinical course Progress: Poor This medical document was created using an electronic medical record system with [employer] dictation system. Although this document has been carefully reviewed, there may still be some phonetic and typographical errors. These areas are purely typographical due to imperfections of the software programs, and do not reflect any compromise in the patient's medical care. Plan discussed with: JUANITO Ayala MD Mar 27, 2025 21:08
[2025-03-27 22:37] LABS: LDL Cholesterol 35 mg/dL (< 100)
[2025-03-27 22:38] LABS: Cholesterol 93 mg/dL (< 200)
[2025-03-27 22:43] LABS: HDL Cholesterol 24 mg/dL (40-59); Triglycerides 194 mg/dL (< 150)
[2025-03-27] MEDS: ATORVASTATIN 20 MG TAB PO SCH (22:49)
[2025-03-28] VITALS (12 sets, daily range): BP systolic 106–119; BP diastolic 60–86; PULSE 97–127; RESP 17–24; TEMP 97.6–98.4; O2SAT 3–100
[2025-03-28 06:33] LABS: Basophils # (auto) 0.1 10 ^3/uL (0-0.2); Basophils % (auto) 0.5 % (0.0-2.0); Eosinophils # (auto) 1.9 10 ^3/uL (0-0.8); Eosinophils % (auto) 8.5 % (0.0-7.0); Hematocrit 28.8 % (36.0-46.0); Hemoglobin 9.9 g/dL (12.2-16.2); Lymphocytes # (auto) 1.1 10 ^3/uL (0.4-5.4); Lymphocytes % (auto) 4.9 % (10.0-50.0); Mean Corpuscular Hemoglobin 30.1 pg (28.0-32.0); Mean Corpuscular Hgb Conc. 34.4 g/dL (32.0-36.0); Mean Corpuscular Volume 87.4 fL (80.0-100.0); Monocytes # (auto) 1.4 10 ^3/uL (0-1.3); Monocytes % (auto) 6.4 % (0.0-12.0); Neutrophils # (auto) 17.8 10 ^3/uL (1.6-8.6); Neutrophils % (auto) 79.7 % (37.0-80.0); Nucleated Red Blood Cells % 0.2 %; Platelet Count (auto) 162 10^3/uL (140-450); Red Cell Distribution Width 16.7 % (11.8-14.3); White Blood Cell 22.3 10^3/uL (4.4-10.8)
[2025-03-28 06:52] LABS: Alanine Aminotransferase 27 U/L (7-40); Anion Gap 11 (5-15); BUN/Creatinine Ratio 62.5 (10.0-20.0); Bilirubin, Total 0.7 mg/dL (0.2-1.0); Carbon Dioxide 27 mmol/L (20-31); Cholesterol 84 mg/dL (< 200); Glucose 93 mg/dL (74-106); LDL Cholesterol 27 mg/dL (< 100); Potassium 3.8 mmol/L (3.5-5.1)
[2025-03-28 06:59] LABS: Albumin 2.5 g/dL (3.2-4.8); Alkaline Phosphatase 665 U/L (46-116); Aspartate Aminotransferase 50 U/L (13-40); Blood Urea Nitrogen 25 mg/dL (9-23); Calcium 8.4 mg/dL (8.7-10.4); Chloride 97 mmol/L (98-107); HDL Cholesterol 25 mg/dL (40-59); Sodium 135 mmol/L (136-145); Total Protein 4.2 g/dL (5.7-8.2); Triglycerides 166 mg/dL (< 150)
--- NOTE | 2025-03-28 08:54 | DVHPN2 ---
Progress Note - Dictate Date Seen: Mar 28, 2025 Medical Necessity Reason Pt with a Central, PICC or Fol: No vital signs Vital Sign Date Time Temp Pulse Resp B/P (MAP) Pulse Ox O2 Delivery O2 Flow Rate FiO2 03/28/25 08:05 3 Nasal Cannula* 3 32 03/28/25 04:58 97.8 99 17 117/60 (79) 97.8 Total Intake and Output 03/27/25 03/27/25 03/28/25 15:00 23:00 07:00 Intake Total 80 ml 674 ml 80 ml Output Total 900 ml 400 ml Balance 80 ml -226 ml -320 ml medications Current Medications Medications Dose Ordered Sig/Pedro Route Start Time Stop Time Status Last Admin Dose Admin Nitroglycerin 0.4 mg Q5MINP PRN SL 03/26/25 07:45 Morphine Sulfate 2 mg Q30M PRN IV 03/26/25 07:45 Azithromycin 250 ml @ 125 mls/hr DAILY IV 03/26/25 10:00 03/27/25 09:33 125 MLS/HR Ceftriaxone Sodium 50 ml @ 100 mls/hr DAILY@09 IV 03/26/25 09:00 03/28/25 08:19 100 MLS/HR Acetaminophen 650 mg Q4HPRN PRN PO 03/26/25 08:00 Ondansetron HCl 4 mg Q4HPRN PRN IV 03/26/25 10:45 Pantoprazole Sodium 50 ml @ 10 mls/hr Q5H IV 03/26/25 13:30 03/28/25 05:37 10 MLS/HR Methadone HCl 5 mg BID PO 03/26/25 17:00 03/27/25 22:51 5 MG Aspirin 81 mg DAILY PO 03/28/25 10:00 Atorvastatin Calcium 20 mg HS PO 03/27/25 22:00 03/27/25 22:49 20 MG laboratory and microbiology Laboratory Tests 03/28/25 05:20 Test 03/28/25 05:20 Range/Units Serum Glucose 93 74-106 mg/dL Assessment/Plan Patient is a 64-year-old female who was brought to the hospital for generalized weakness and loss of consciousness. Patient is Upper Sorbian speaking and information was obtained by talking to the son (at bedside). Patient was recently in the hospital and was discharged few weeks back after she was found to have metastatic cancer. As per son, since the patient was at home, she has been having repeated bowel movements daily which have been bloody and black. As per son, the patient became nonresponsive while going to the bathroom and the son decided to call 911. Reportedly EMS found the patient to be hypotensive, tachycardic with low oxygen saturation. In emergency room, the patient was found to have significant anemia and has received blood transfusion. Patient was recently found to have rectal mass with metastatic cancer. In recent admission, the patient was also found to have CVAs. It seems that at the time of discharge, the primary team started the patient on Eliquis for the reported CVAs (reportedly as per suggestion of Neurology). Patient has been on 5 mg Eliquis twice daily at home. Prior to previous admission, the patient was healthy with only past history of occasional back pain. Does have family history of different cancers. In previous admission, the patient was found to have stable mildly increased troponin which was assessed to reflect demand ischemia. Is not known to have any primary cardiac pathology. There is no previous diagnosis of any arrhythmia. Echocardiogram of March 09, 2025 had revealed left ventricular systolic function to be hyperdynamic with no specific valvular disease and normal right-sided pressures. Cardiology is involved for cardiac aspects of care. There has been no report of chest pain. There has been no report of shortness of breath. Pale patient. No JVD. Lungs reveal rhonchi. No crackles. Cardiac: Regular, no thrill/gallop. Abdomen: Soft. Increased bowel sounds. Extremities: Dorsalis pedis is 1+ bilateral with no edema. 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 Previously had flat mildly elevated troponin which was assessed to reflect demand physiology. Echocardiogram of March 09, 2025 had reported ejection fraction of 75%, hyperdynamic LV, trace MR/TR/PI. Right ventricular systolic pressure was 28 mm Hg WBC: 17 - 21.4 - 21.7 - 22.3 Hemoglobin: 7.2 - 10.7 - 10.2 - 10.1 - 9.9 D-dimer: 1.77 Creatinine: 0.51 - 0.46 - 0.40 BUN: 33 - 32 - 25 Potassium: 3.1 - 3.8 - 3.8 Sodium: 131 - 134 - 135 Serum Iron: 44 CRP: 5.92 Trop (high sensitive): 1094 - 1149 - 784 BNP: 50.11 TSH: 0.53 Chest x-ray reported: IMPRESSION: 1. Stable appearing diffuse bilateral multifocal nodular opacities, predominating within the lung bases. 2. Probable bilateral pleural effusions. CT of head revealed: IMPRESSION: 1. No acute intracranial hemorrhage or mass effect. 2. New small areas of loss of oconnor-white matter differentiation in the high posterior bilateral parietal lobes more pronounced in the left likely areas of evolving infarct. 3. Known bilateral frontal lobe and cerebellar infarcts seen to better advantage on recent MRI brain. MRI of brain revealed: IMPRESSION: 1. Interval progression of bilateral multifocal multicompartmental acute ischemia with no evidence of hemorrhagic transformation. No intra-axial or extra-axial hemorrhage noted. Abdomen and pelvis CT: Lung bases: Innumerable pulmonary nodules in the lung bases due to metastatic disease. Small bilateral pleural effusions with overlying atelectasis. Liver: Extensive hepatic metastatic disease with numerous lesions throughout the liver. Biliary: No calcified gallstones or biliary ductal dilatation. Spleen: Multiple hypo enhancing lesions in the spleen. Can not exclude metastatic disease. Pancreas: Motion artifact limits evaluation. Moderate pancreatic atrophy. Possible cyst along the anterior aspect of the body of the pancreas measuring up to 1.4 cm, although poorly evaluated due to motion. Adrenal glands: Unremarkable. No mass. Kidneys: No hydronephrosis. Small linear areas of hypo enhancement in the periphery of both kidneys, possible small infarcts. Aorta/Vascular: Minimal atherosclerotic calcification no abdominal aortic aneurysm. Retroperitoneum: Multiple enlarged para-aortic and interaortocaval lymph nodes, of which demonstrate low-density, may be due to necrosis. The largest measure up to 1.6 x 1.4 cm of the para-aortic station 1.4 x 1.3 cm of the interaortocaval station. Peripherally enhancing mass along the deep fibers of the left psoas muscle measuring up to 1.8 cm, suspected metastasis. Additional peripherally enhancing masses are seen in the pelvis, including in the left hemipelvis along the posterior aspect of the left iliopsoas muscle measuring up to 2.9 cm in greatest dimension, along the left side of the uterus measuring up to 3.5 cm, along the posterior aspect of the rectum measuring up to 2.5 cm, and multiple additional metastatic implants and abnormal lymph nodes. Bowel/mesentery: No small bowel obstruction. No free air or free fluid. Appendix is not visualized. There is a catheter in the rectum with associated balloon. There is moderate perirectal stranding. Pelvic organs: Heterogeneous uterus with multiple peripherally enhancing uterine masses visualized, with the largest along the left side of the uterus measuring up to 3.5 cm. Bladder: Dockery catheter extends into the bladder. Gas within the bladder is likely due to Dockery catheter placement. Abdominal wall: Mild diffuse body wall edema / anasarca. Prominent right inguinal lymph node measures up to 1.9 x 1.3 cm, possible lymph node metastasis. Bones: No acute fracture or focal intraosseous lesion. IMPRESSION: 1. Motion limited study. 2. Extensive metastatic disease involving the lungs, liver, possibly the spleen, retroperitoneum, pelvis, uterus, and additional areas as described above. 3. Moderate stranding adjacent to the rectum, likely inflammatory in nature, including proctitis. 4. Cyst along the body of the pancreas, possible pseudocyst or possibly cystic neoplasm.Bilateral pleural 5. Effusions with overlying atelectasis. 6. Suspected small bilateral renal infarcts. 7. Additional findings as detailed above Venous duplex of lower ext revealed: Impression: 1. No right or left femoropopliteal venous thrombosis. EKG reveals sinus tachycardia with nonspecific ST-T changes Tele reveals sinus tachycardia Echocardiogram revealed: Left ventricle: Left ventricle was normal-sized with normal systolic function. LVEF was 65-70%. There was no gross wall motion abnormality. Right ventricle was normal-sized with normal systolic function. Both atria were normal-sized. Aortic valve was not well visualized. There was mild aortic valve insufficiency. There was no aortic stenosis. There was no mitral regurgitation. There was mild tricuspid regurgitation. Pulmonary valve was not well visualized. IVC was normal-sized with normal respiratory variation. Right ventricular systolic pressure was assessed at 35 mm Hg. There was no pericardial effusion. Patient is a 64-year-old female with advanced metastatic cancer who presented with hypotension. Reportedly has been having GI bleeding for many days. Was on Eliquis as outpatient (as per suggestion of Neurology on previous admission). Clinically the patient is cachectic. Is immunocompromised. Does have leukocytosis and sepsis could have contributed to the clinical picture also. GI bleeding/anemia/sepsis could have been the etiology for loss of consciousness/hypotension. Was found to have abnormal Trop. Presentation is not cardiac. Still, abnormal trop may point to component of non-stemi or Pulmonary Emboli. Recognizing co-morbidities and advanced / metastatic cancer, invasive ischemic work up is not suggested. Patient may have had repeated CVA also. Seen by Neurology and GI Encephalopathy Presyncope Hypotension GI bleeding Significant anemia Abnormal Trop Sepsis Metastatic cancer Liver Mets Pulmonary Mets Spleen Mets Retroperitoneal Adenopathy Uterine mass Proctitis Renal Infarcts (bilateral) CVA, acute Immunocompromised Cachectic Cardiac suggestion for management: Manage in tele Follow-up electrolytes and kidney function tests and correct abnormalities (keep potassium above 4 and magnesium above 2) ASA 81 mg daily Management of sepsis as per primary team GI follow up Consider Hematology/Oncology evaluation and follow-up Neurology follow up Considering the patient's significantly advanced metastatic cancer/history of CVA, you may consider hospice Further evaluation and management depends on the above and clinical course A total of 75 minutes was spent reviewing the patient record, examining the patient, making a diagnostic and therapeutic plan, discussing this plan with medical personnel, following up on diagnostic studies and following the patient for clinical stability excluding any and all procedures. At least 50% of this time was spent in direct, yehb-in-yawi contact. Thank you for allowing me to participate in this patient's care. Further recommendations will depend on patient's clinical course. Please do not hesitate to contact me if you have any questions or concerns. This medical document was created using electronic medical record system with [employer] computerized dictation system. Although this document has been carefully reviewed, there may still be some phonetic and typographical errors. These areas are purely typographical due to the imperfection of the software programs, and do not reflect any compromise in the patient's medical care Plan discussed with: Son (at bedside), Other (nurse) CC Plasma Assessment Blood Product Administration S: [id number] FARIDA MOTT MD Mar 28, 2025 08:54
[2025-03-28] MEDS: ASPirin 81 mg TAB PO SCH (09:57)
--- NOTE | 2025-03-28 10:48 | ECG ---
[facility] Test Date: 2025-03-26 Test Time: 02:49:56 Pat Name: SERENE GRIFFIN Department: ED Room: 0205T A Gender: F Copy Supervisor: JACKSON : 1960 Requested By: AQUILES FREEDMAN Order Number: [id number] Reading MD: Armen Tracey Measurements Intervals [place] Rate: 101 P: 60 [place]: 158 QRS: 6 QRSD: 51 T: -30 QT: 415 QTc: 538 Interpretive Statements Sinus tachycardia RSR' in V1 or V2, probably normal variant Borderline T abnormalities, anterior leads Prolonged QT interval Electronically Signed On 03-30-2025 17:05:41 PDT by Armen Tracey Please click the below link to view image of tracing.
--- NOTE | 2025-03-28 11:03 | DVHPN2 ---
Progress Note - Dictate Date Seen: Mar 28, 2025 Medical Necessity Reason Pt with a Central, PICC or Fol: No Subjective Ms. 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 At this time, she was awake, oriented to person, place, with reasonable social skills, the history is obtained from her son I have seen and examined the patient, I have talked to her nurse, her family in the room. She was awake, looks pale, and weak. She was only oriented to person, but was oriented to person and place earlier this morning, her son relate the patient was mentally sharper around 3:00 a.m. today Urinalysis, 03/26/2025: WBC: 4, urine leukocyte esterase: Negative WBC/HB/PLT/MCV, 03/27/2025: 21. 7/10.2/210/87.4, 03/28/2025: 22.3/9.9/162/87.4 PT/INR/PTT, 03/26/2025: 14.9/1.46/30.6 BUN/CR, 03/26/2025: 33/0.51, 03/27/2025: 32/1.46 TBI/AST/ALT/AP, 03/27/25: 0.8/48/29/543 TG/HDL/LDL/HDL, 03/27/2025: 194/93/35/24, 03/28/2025: 166/84/27/25 TSH, 03/26/25: 0.53 CT head, 03/26/2025: 1. No acute intracranial hemorrhage or mass effect. 2. New small areas of loss of oconnor-white matter differentiation in the high posterior bilateral parietal lobes more pronounced in the left likely areas of evolving infarct. 3. Known bilateral frontal lobe and cerebellar infarcts seen to better advantage on recent MRI brain. Chest CT, 03/09/2025: 1. Numerous nodular densities are seen throughout both lungs suggestive of metastatic disease. The largest nodule measures approximately 1.2 cm in the right middle lobe. There is also probable superimposed pneumonia bilaterally. 2. Mediastinal lymphadenopathy 3. Numerous hypodense masses are also seen throughout the liver CT, abdomen/pelvis, 03/27/2025: 1. Motion limited study. 2. Extensive metastatic disease involving the lungs, liver, possibly the spleen, retroperitoneum, pelvis, uterus, and additional areas as described above. 3. Moderate stranding adjacent to the rectum, likely inflammatory in nature, including proctitis. 4. Cyst along the body of the pancreas, possible pseudocyst or possibly cystic neoplasm.Bilateral pleural 5. Effusions with overlying atelectasis. 6. Suspected small bilateral renal infarcts. MRI head, 03/13/2025: Multifocal areas of diffusion restriction in the right > left cerebellum, right > left cerebrum (parietal, frontal, occipital lobes) consistent with acute infarct. Foci of abnormal susceptibility hypointensity is present along the left parietal lobe could be microhemorrhage. MRI head, 03/27/2025: Interval progression of bilateral multifocal multicompartmental acute ischemia with no evidence of hemorrhagic transformation. No intra-axial or extra-axial hemorrhage noted vital signs Vital Sign Date Time Temp Pulse Resp B/P (MAP) Pulse Ox O2 Delivery O2 Flow Rate FiO2 03/28/25 10:10 97 106/61 (76) 03/28/25 08:05 3 Nasal Cannula* 3 32 03/28/25 04:58 97.8 17 97.8 Total Intake and Output 03/27/25 03/27/25 03/28/25 15:00 23:00 07:00 Intake Total 80 ml 674 ml 80 ml Output Total 900 ml 400 ml Balance 80 ml -226 ml -320 ml medications Current Medications Medications Dose Ordered Sig/Pedro Route Start Time Stop Time Status Last Admin Dose Admin Nitroglycerin 0.4 mg Q5MINP PRN SL 03/26/25 07:45 Morphine Sulfate 2 mg Q30M PRN IV 03/26/25 07:45 Azithromycin 250 ml @ 125 mls/hr DAILY IV 03/26/25 10:00 03/28/25 09:56 125 MLS/HR Ceftriaxone Sodium 50 ml @ 100 mls/hr DAILY@09 IV 03/26/25 09:00 03/28/25 08:19 100 MLS/HR Acetaminophen 650 mg Q4HPRN PRN PO 03/26/25 08:00 Ondansetron HCl 4 mg Q4HPRN PRN IV 03/26/25 10:45 Pantoprazole Sodium 50 ml @ 10 mls/hr Q5H IV 03/26/25 13:30 03/28/25 05:37 10 MLS/HR Methadone HCl 5 mg BID PO 03/26/25 17:00 03/28/25 09:58 5 MG Aspirin 81 mg DAILY PO 03/28/25 10:00 03/28/25 09:57 81 MG Atorvastatin Calcium 20 mg HS PO 03/27/25 22:00 03/27/25 22:49 20 MG objective General: the patient is well developed and nourished. No acute distress. MENTAL STATUS: Subjective SPEECH, LANGUAGE, HIGHER CORTICAL FUNCTION: no aphasia or dysathria. CRANIAL NERVES: Pupils are equal, round and reactive. EOMs full and conjugate. Facial sensation intact in all three divisions bilaterally. Mandibular strength intact. Facial muscles symmetrical and strength intact SENSATION: Sensation to touch and pinprick is normal. MOTOR: Normal tone in the upper and lower extremity. Normal muscle bulk. No fasciculations. No abnormal movements or posturing. Muscle strength of the major groups in the right extremities is 4/5. Muscle strength of the major groups in the left extremities is 3-4/5. REFLEXES: Deep tendon reflexes are symmetrical. No pathological reflexes. CEREBELLAR/COORDINATION: Finger to nose is fine bilaterally GAIT/STATION: deferred laboratory and microbiology Laboratory Tests 03/28/25 05:20 Test 03/28/25 05:20 Range/Units Serum Glucose 93 74-106 mg/dL Problem List Multiple strokes confirmed with MRI on 03/13/2025 New multiple strokes according to MRI on 03/27/25 Left hemiparesis secondary to strokes Stroke secondary to malignancy related hypercoagulation GI bleeding, likely secondary to Eliquis Anemia secondary to GI bleeding Colon cancer Assessment/Plan Monitoring Supportive treatment Telemetry Aspirin 81 mg daily D/C Lipitor 20 mg daily Hematology on case GI on case Cardiology on case Consider physical therapy evaluation later More recommendation per clinical course This medical document was created using an electronic medical record system with [employer] dictation system. Although this document has been carefully reviewed, there may still be some phonetic and typographical errors. These areas are purely typographical due to imperfections of the software programs, and do not reflect any compromise in the patient's medical care. Prognosis poor Plan discussed with: Spouse, Son, Other Total Time (mins): 35 CC Plasma Assessment Blood Product Administration S: [id number] JUANITO NORRIS MD Mar 28, 2025 11:03
--- NOTE | 2025-03-28 13:57 | ECG ---
[facility] Test Date: 2025-03-26 Test Time: 14:26:53 Pat Name: SERENE GRIFFIN Department: ER Room: 0205T A Gender: F Tankman: MAREN : 1960 Requested By: RAHEL GAMA Order Number: [id number] Reading MD: Armen Tracey Measurements Intervals [place] Rate: 108 P: 69 ID: [id number] QRS: 11 QRSD: 91 T: 9 QT: 395 QTc: 530 Interpretive Statements Sinus tachycardia RSR' in V1 or V2, probably normal variant Borderline T wave abnormalities Prolonged QT interval Electronically Signed On 03-30-2025 17:05:47 PDT by Armen Tracey Please click the below link to view image of tracing.
--- NOTE | 2025-03-28 15:06 | MEDREC ---
[facility] ASP Intervention Section I [facility] ASP Intervention: Review courses of therapy (DUE TO PROLONG QTc > 500 PLEASE CONSIDER SWITCHING AZITHROMYCIN TO DOXYCYCLINE ) SHELBI BECERRA PHARMACIST Mar 28, 2025 15:06
--- NOTE | 2025-03-28 16:28 | DVHPN2 ---
Progress Note - Dictate Date Seen: Mar 28, 2025 Medical Necessity Reason Pt with a Central, PICC or Fol: No vital signs Vital Sign Date Time Temp Pulse Resp B/P (MAP) Pulse Ox O2 Delivery O2 Flow Rate FiO2 03/28/25 14:54 97.8 124 20 117/60 94 3.0 32 97.8 03/28/25 08:05 Nasal Cannula* Total Intake and Output 03/27/25 03/27/25 03/28/25 15:00 23:00 07:00 Intake Total 80 ml 674 ml 80 ml Output Total 900 ml 400 ml Balance 80 ml -226 ml -320 ml medications Current Medications Medications Dose Ordered Sig/Pedro Route Start Time Stop Time Status Last Admin Dose Admin Nitroglycerin 0.4 mg Q5MINP PRN SL 03/26/25 07:45 Morphine Sulfate 2 mg Q30M PRN IV 03/26/25 07:45 Ceftriaxone Sodium 50 ml @ 100 mls/hr DAILY@09 IV 03/26/25 09:00 03/28/25 08:19 100 MLS/HR Acetaminophen 650 mg Q4HPRN PRN PO 03/26/25 08:00 Ondansetron HCl 4 mg Q4HPRN PRN IV 03/26/25 10:45 Pantoprazole Sodium 50 ml @ 10 mls/hr Q5H IV 03/26/25 13:30 03/28/25 15:07 10 MLS/HR Methadone HCl 5 mg BID PO 03/26/25 17:00 03/28/25 09:58 5 MG Aspirin 81 mg DAILY PO 03/28/25 10:00 03/28/25 09:57 81 MG Ipratropium [place] 0.5 mg Q4HWA [facility] 03/28/25 14:00 Albuterol 2.5 mg Q4HWA [facility] 03/28/25 14:00 Enteral Nutritional Formula 240 ml TIDWM PO 03/28/25 18:00 Doxycycline Hyclate 100 ml @ 50 mls/hr Q12H IV 03/28/25 15:45 objective General Appearance: alert, no distress HEENT: EOMI, PERRLA, normal external inspect of ears, no icterus, no nasal drainage Neck: no carotid bruit, no jugular venous distention (JVD), no lymphadenopathy Chest: normal thorax Respiratory: clear to auscultation, normal air movement Cardiovascular: regular rate and rhythm, no diastolic murmur, no jugular venous distention (JVD), no rub, no systolic murmur Abdominal: soft, no hepatomegaly, no mass, no splenomegaly, no tenderness Genitourinary: grossly normal external Musculoskeletal: no joint tenderness, no swelling Extremities: normal pulses, no calf tenderness, no clubbing, no cyanosis, no edema Skin: no bruising, no jaundice, no rash Neurological: alert, No focal deficit laboratory and microbiology Laboratory Tests 03/28/25 05:20 Test 03/28/25 05:20 Range/Units Serum Glucose 93 74-106 mg/dL Problem List 1. Syncope likely secondary to blood loss anemia cardiac consult, 2. Hepatic metastatic disease Monitor, oncology consult, GI consult 3. colorectal cancer metastasis to liver and lungs Monitor 4. Elevated troponin Monitor, cardiology consult, PPI, monitor EKG 5. Elevated liver enzymes Monitor, radiology consult for liver biopsy 6. hx of CVA Monitor 7. Coagulopathy 8. blood loss anemia transfuse for hgb below 7 9. sepsis likely from PNA gram negative or positive IV abx 10. moderate protein deficiency monitor 11. hyponatremia 12. acute metabolic encephalopathy monitor neuro status 13. GI bleed likely upper GI consult, PPI 14. Non-STEMI likely type 2 Cardiac consult Assessment/Plan Subjective: Patient is very lethargic. Objective: I spoke with patient's son at bedside. Patient was admitted for acute GI hemorrhage and GI bleed. Patient was sent home with anticoagulation. Patient had a CVA and was found to have an additional CVA on this admission. Patient has a history of colorectal cancer with metastasis. Patient was found to have liver masses, lung masses, pelvic masses, and a cystic structure on her pancreas. I consulted over the phone with Dr. Garsia, who stated she cannot see patient due to [employer] insurance outpatient. I also spoke with Dr. Lacy Talley, who stated she could see patient but was unable to see patient while in hospital. Patient is complaining of shortness of breath. Plan: Obtain CT angio to rule out PE. Start Med-Neb treatments. Continue current treatment. Dietary Evaluation Review Comments: 1. Add Ensure Clear TID plus prostat BID for protein-josé luis supplements when she is on clear liquid. 2. Add ensure EnLive BID supplements when pt upgraded to diet 3. Low chol and Low LDL, consider d/c lipitor and a different way to treat high TG Expected Outcomes/Goals: Maintain Wt. Imprved nutrition status Plan discussed with: Patient, Other CC Plasma Assessment Blood Product Administration S: [id number] JUDY JACK NP Mar 28, 2025 16:28
[2025-03-28] MEDS: DOXYCYCLINE 100MG/100ML 100 ML IV SCH (16:35)
[2025-03-28] MEDS: ENSURE CLEAR Mixed Berry 8oz Carton PO SCH (18:00)
[2025-03-28] MEDS: ALBUTEROL SULF 2.5 MG/0.5ML(0.5%) NEB SOLN NEB SCH (19:19)
[2025-03-28] MEDS: IPRATROPIUM BROM 0.5 MG/2.5ML INH SOL NEB SCH (19:19)
--- NOTE | 2025-03-28 21:44 | DVHPN2 ---
Progress Note - Dictate Date Seen: Mar 28, 2025 Medical Necessity Reason Pt with a Central, PICC or Fol: No Subjective Patient seen at bedside, resting comfortably Yesterday patient had a moderate amount of fresh rectal bleeding Currently through the rectal tube she has more dark and formed stools She denies any nausea vomiting or abdominal pain Patient was on Eliquis or a blood thinner prior to admission which has been stopped Her troponins are elevated and draw fire operator would like to put her on aspirin vital signs Vital Sign Date Time Temp Pulse Resp B/P (MAP) Pulse Ox O2 Delivery O2 Flow Rate FiO2 03/28/25 20:44 97.6 127 24 119/86 (97) 97 97.6 03/28/25 19:26 Nasal Cannula* 3 32 Total Intake and Output 03/27/25 03/27/25 03/28/25 15:00 23:00 07:00 Intake Total 80 ml 674 ml 80 ml Output Total 900 ml 400 ml Balance 80 ml -226 ml -320 ml medications Current Medications Medications Dose Ordered Sig/Pedro Route Start Time Stop Time Status Last Admin Dose Admin Nitroglycerin 0.4 mg Q5MINP PRN SL 03/26/25 07:45 Morphine Sulfate 2 mg Q30M PRN IV 03/26/25 07:45 Ceftriaxone Sodium 50 ml @ 100 mls/hr DAILY@09 IV 03/26/25 09:00 03/28/25 08:19 100 MLS/HR Acetaminophen 650 mg Q4HPRN PRN PO 03/26/25 08:00 Ondansetron HCl 4 mg Q4HPRN PRN IV 03/26/25 10:45 Pantoprazole Sodium 50 ml @ 10 mls/hr Q5H IV 03/26/25 13:30 03/28/25 20:52 10 MLS/HR Methadone HCl 5 mg BID PO 03/26/25 17:00 03/28/25 09:58 5 MG Aspirin 81 mg DAILY PO 03/28/25 10:00 03/28/25 09:57 81 MG Ipratropium [place] 0.5 mg Q4HWA NEB 03/28/25 14:00 03/28/25 19:26 0.5 MG Albuterol 2.5 mg Q4HWA NEB 03/28/25 14:00 03/28/25 19:26 2.5 MG Enteral Nutritional Formula 240 ml TIDWM PO 03/28/25 18:00 Doxycycline Hyclate 100 ml @ 50 mls/hr Q12H IV 03/28/25 15:45 03/28/25 16:35 50 MLS/HR objective General Appearance: Alert, Oriented X3, Cooperative, No acute distress Respiratory: Clear to auscultation, Normal air movement Cardiovascular: Regular rate, Normal S1, Normal S2 Abdominal: Normal bowel sounds, soft nontender extremities show some unilateral weakness laboratory and microbiology Laboratory Tests 03/28/25 05:20 Test 03/28/25 05:20 Range/Units Serum Glucose 93 74-106 mg/dL Problems(with codes): (1) Elevated troponin (2) Elevated CA 19-9 level (3) Metastatic neoplasm (4) CVA (cerebral vascular accident) (5) Rectal mass (6) Colorectal carcinoma (7) GI bleed Prognosis Assessment plan Continue supportive care Patient may be able to see an oncologist as an outpatient Monitor labs, IV antibiotics for leukocytosis Transfuse 1 unit PRBC if hemoglobin is less than seven Hold anticoagulants but okay to start aspirin as long as she is taking a PPI However the patient may be hospice appropriate and I have discussed it with the patient's son Dietary Evaluation Review Comments: 1. Add Ensure Clear TID plus prostat BID for protein-josé luis supplements when she is on clear liquid. 2. Add ensure EnLive BID supplements when pt upgraded to diet 3. Low chol and Low LDL, consider d/c lipitor and a different way to treat high TG Expected Outcomes/Goals: Maintain Wt. Imprved nutrition status Plan discussed with: Patient, Son CC Plasma Assessment Blood Product Administration S: [id number] ROBERT RAMIREZ MD Mar 28, 2025 21:43
[2025-03-29] VITALS (14 sets, daily range): BP systolic 99–151; BP diastolic 60–89; PULSE 58–135; RESP 16–24; TEMP 97.3–98.5; O2SAT 4–100
--- NOTE | 2025-03-29 07:02 | DVHPN2 ---
Progress Note - Dictate Date Seen: Mar 29, 2025 Medical Necessity Reason Pt with a Central, PICC or Fol: No vital signs Vital Sign Date Time Temp Pulse Resp B/P (MAP) Pulse Ox O2 Delivery O2 Flow Rate FiO2 03/29/25 06:45 110 22 100 03/29/25 06:31 Nasal Cannula* 3 32 03/29/25 05:09 98.5 111/71 (84) 98.5 Total Intake and Output 03/28/25 03/28/25 03/29/25 15:00 23:00 07:00 Intake Total 300 ml 800 ml 150 ml Output Total 250 ml 250 ml Balance 300 ml 550 ml -100 ml medications Current Medications Medications Dose Ordered Sig/Pedro Route Start Time Stop Time Status Last Admin Dose Admin Nitroglycerin 0.4 mg Q5MINP PRN SL 03/26/25 07:45 Morphine Sulfate 2 mg Q30M PRN IV 03/26/25 07:45 Ceftriaxone Sodium 50 ml @ 100 mls/hr DAILY@09 IV 03/26/25 09:00 03/28/25 08:19 100 MLS/HR Acetaminophen 650 mg Q4HPRN PRN PO 03/26/25 08:00 Ondansetron HCl 4 mg Q4HPRN PRN IV 03/26/25 10:45 Pantoprazole Sodium 50 ml @ 10 mls/hr Q5H IV 03/26/25 13:30 03/29/25 06:48 10 MLS/HR Methadone HCl 5 mg BID PO 03/26/25 17:00 03/28/25 22:14 5 MG Aspirin 81 mg DAILY PO 03/28/25 10:00 03/28/25 09:57 81 MG Ipratropium [place] 0.5 mg Q4HWA NEB 03/28/25 14:00 03/29/25 06:31 0.5 MG Albuterol 2.5 mg Q4HWA NEB 03/28/25 14:00 03/29/25 06:31 2.5 MG Enteral Nutritional Formula 240 ml TIDWM PO 03/28/25 18:00 Doxycycline Hyclate 100 ml @ 50 mls/hr Q12H IV 03/28/25 15:45 03/29/25 03:32 50 MLS/HR laboratory and microbiology Laboratory Tests 03/28/25 05:20 Test 03/28/25 05:20 Range/Units Serum Glucose 93 74-106 mg/dL Assessment/Plan Patient is a 64-year-old female who was brought to the hospital for generalized weakness and loss of consciousness. Patient is Azeri speaking and information was obtained by talking to the son (at bedside). Patient was recently in the hospital and was discharged few weeks back after she was found to have metastatic cancer. As per son, since the patient was at home, she has been having repeated bowel movements daily which have been bloody and black. As per son, the patient became nonresponsive while going to the bathroom and the son decided to call 911. Reportedly EMS found the patient to be hypotensive, tachycardic with low oxygen saturation. In emergency room, the patient was found to have significant anemia and has received blood transfusion. Patient was recently found to have rectal mass with metastatic cancer. In recent admission, the patient was also found to have CVAs. It seems that at the time of discharge, the primary team started the patient on Eliquis for the reported CVAs (reportedly as per suggestion of Neurology). Patient has been on 5 mg Eliquis twice daily at home. Prior to previous admission, the patient was healthy with only past history of occasional back pain. Does have family history of different cancers. In previous admission, the patient was found to have stable mildly increased troponin which was assessed to reflect demand ischemia. Is not known to have any primary cardiac pathology. There is no previous diagnosis of any arrhythmia. Echocardiogram of March 09, 2025 had revealed left ventricular systolic function to be hyperdynamic with no specific valvular disease and normal right-sided pressures. Cardiology is involved for cardiac aspects of care. There has been no report of chest pain. There has been no report of shortness of breath. Pale patient. No JVD. Lungs reveal rhonchi. No crackles. Cardiac: Regular, no thrill/gallop. Abdomen: Soft. Increased bowel sounds. Extremities: Dorsalis pedis is 1+ bilateral with no edema. 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 Previously had flat mildly elevated troponin which was assessed to reflect demand physiology. Echocardiogram of March 09, 2025 had reported ejection fraction of 75%, hyperdynamic LV, trace MR/TR/PI. Right ventricular systolic pressure was 28 mm Hg WBC: 17 - 21.4 - 21.7 - 22.3 Hemoglobin: 7.2 - 10.7 - 10.2 - 10.1 - 9.9 D-dimer: 1.77 Creatinine: 0.51 - 0.46 - 0.40 BUN: 33 - 32 - 25 Potassium: 3.1 - 3.8 - 3.8 Sodium: 131 - 134 - 135 Serum Iron: 44 CRP: 5.92 Trop (high sensitive): 1094 - 1149 - 784 BNP: 50.11 TSH: 0.53 Chest x-ray reported: IMPRESSION: 1. Stable appearing diffuse bilateral multifocal nodular opacities, predominating within the lung bases. 2. Probable bilateral pleural effusions. CT of head revealed: IMPRESSION: 1. No acute intracranial hemorrhage or mass effect. 2. New small areas of loss of oconnor-white matter differentiation in the high posterior bilateral parietal lobes more pronounced in the left likely areas of evolving infarct. 3. Known bilateral frontal lobe and cerebellar infarcts seen to better advantage on recent MRI brain. MRI of brain revealed: IMPRESSION: 1. Interval progression of bilateral multifocal multicompartmental acute ischemia with no evidence of hemorrhagic transformation. No intra-axial or extra-axial hemorrhage noted. Abdomen and pelvis CT: Lung bases: Innumerable pulmonary nodules in the lung bases due to metastatic disease. Small bilateral pleural effusions with overlying atelectasis. Liver: Extensive hepatic metastatic disease with numerous lesions throughout the liver. Biliary: No calcified gallstones or biliary ductal dilatation. Spleen: Multiple hypo enhancing lesions in the spleen. Can not exclude metastatic disease. Pancreas: Motion artifact limits evaluation. Moderate pancreatic atrophy. Possible cyst along the anterior aspect of the body of the pancreas measuring up to 1.4 cm, although poorly evaluated due to motion. Adrenal glands: Unremarkable. No mass. Kidneys: No hydronephrosis. Small linear areas of hypo enhancement in the periphery of both kidneys, possible small infarcts. Aorta/Vascular: Minimal atherosclerotic calcification no abdominal aortic aneurysm. Retroperitoneum: Multiple enlarged para-aortic and interaortocaval lymph nodes, of which demonstrate low-density, may be due to necrosis. The largest measure up to 1.6 x 1.4 cm of the para-aortic station 1.4 x 1.3 cm of the interaortocaval station. Peripherally enhancing mass along the deep fibers of the left psoas muscle measuring up to 1.8 cm, suspected metastasis. Additional peripherally enhancing masses are seen in the pelvis, including in the left hemipelvis along the posterior aspect of the left iliopsoas muscle measuring up to 2.9 cm in greatest dimension, along the left side of the uterus measuring up to 3.5 cm, along the posterior aspect of the rectum measuring up to 2.5 cm, and multiple additional metastatic implants and abnormal lymph nodes. Bowel/mesentery: No small bowel obstruction. No free air or free fluid. Appendix is not visualized. There is a catheter in the rectum with associated balloon. There is moderate perirectal stranding. Pelvic organs: Heterogeneous uterus with multiple peripherally enhancing uterine masses visualized, with the largest along the left side of the uterus measuring up to 3.5 cm. Bladder: Dockery catheter extends into the bladder. Gas within the bladder is likely due to Dockery catheter placement. Abdominal wall: Mild diffuse body wall edema / anasarca. Prominent right inguinal lymph node measures up to 1.9 x 1.3 cm, possible lymph node metastasis. Bones: No acute fracture or focal intraosseous lesion. IMPRESSION: 1. Motion limited study. 2. Extensive metastatic disease involving the lungs, liver, possibly the spleen, retroperitoneum, pelvis, uterus, and additional areas as described above. 3. Moderate stranding adjacent to the rectum, likely inflammatory in nature, including proctitis. 4. Cyst along the body of the pancreas, possible pseudocyst or possibly cystic neoplasm.Bilateral pleural 5. Effusions with overlying atelectasis. 6. Suspected small bilateral renal infarcts. 7. Additional findings as detailed above Venous duplex of lower ext revealed: Impression: 1. No right or left femoropopliteal venous thrombosis. EKG reveals sinus tachycardia with nonspecific ST-T changes Tele reveals sinus tachycardia Echocardiogram revealed: Left ventricle: Left ventricle was normal-sized with normal systolic function. LVEF was 65-70%. There was no gross wall motion abnormality. Right ventricle was normal-sized with normal systolic function. Both atria were normal-sized. Aortic valve was not well visualized. There was mild aortic valve insufficiency. There was no aortic stenosis. There was no mitral regurgitation. There was mild tricuspid regurgitation. Pulmonary valve was not well visualized. IVC was normal-sized with normal respiratory variation. Right ventricular systolic pressure was assessed at 35 mm Hg. There was no pericardial effusion. Patient is a 64-year-old female with advanced metastatic cancer who presented with hypotension. Reportedly has been having GI bleeding for many days. Was on Eliquis as outpatient (as per suggestion of Neurology on previous admission). Clinically the patient is cachectic. Is immunocompromised. Does have leukocytosis and sepsis could have contributed to the clinical picture also. GI bleeding/anemia/sepsis could have been the etiology for loss of consciousness/hypotension. Was found to have abnormal Trop. Presentation is not cardiac. Still, abnormal trop may point to component of non-stemi or Pulmonary Emboli. Recognizing co-morbidities and advanced / metastatic cancer, invasive ischemic work up is not suggested. Patient may have had repeated CVA also. Seen by Neurology and GI Encephalopathy Presyncope Hypotension GI bleeding Significant anemia Abnormal Trop Sepsis Metastatic cancer Liver Mets Pulmonary Mets Spleen Mets Retroperitoneal Adenopathy Uterine mass Proctitis Renal Infarcts (bilateral) CVA, acute Immunocompromised Cachectic Cardiac suggestion for management: Manage in tele Follow-up electrolytes and kidney function tests and correct abnormalities (keep potassium above 4 and magnesium above 2) ASA 81 mg daily Management of sepsis as per primary team GI follow up Consider Hematology/Oncology evaluation and follow-up Neurology follow up Considering the patient's significantly advanced metastatic cancer/history of CVA, you may consider hospice Further evaluation and management depends on the above and clinical course A total of 55 minutes was spent reviewing the patient record, examining the patient, making a diagnostic and therapeutic plan, discussing this plan with medical personnel, following up on diagnostic studies and following the patient for clinical stability excluding any and all procedures. At least 50% of this time was spent in direct, [id number] contact. Thank you for allowing me to participate in this patient's care. Further recommendations will depend on patient's clinical course. Please do not hesitate to contact me if you have any questions or concerns. This medical document was created using electronic medical record system with [employer] computerized dictation system. Although this document has been carefully reviewed, there may still be some phonetic and typographical errors. These areas are purely typographical due to the imperfection of the software programs, and do not reflect any compromise in the patient's medical care Dietary Evaluation Review Comments: 1. Add Ensure Clear TID plus prostat BID for protein-josé luis supplements when she is on clear liquid. 2. Add ensure EnLive BID supplements when pt upgraded to diet 3. Low chol and Low LDL, consider d/c lipitor and a different way to treat high TG Expected Outcomes/Goals: Maintain Wt. Imprved nutrition status Plan discussed with: Son (at bedside), Other (nurse) CC Plasma Assessment Blood Product Administration S: [id number] FARIDA MOTT MD Mar 29, 2025 07:02
--- NOTE | 2025-03-29 08:54 | DVHPN2 ---
Progress Note - Dictate Date Seen: Mar 29, 2025 Medical Necessity Reason Pt with a Central, PICC or Fol: No vital signs Vital Sign Date Time Temp Pulse Resp B/P (MAP) Pulse Ox O2 Delivery O2 Flow Rate FiO2 03/29/25 08:49 97.3 120 18 126/77 (93) 93 97.3 03/29/25 06:31 Nasal Cannula* 3 32 Total Intake and Output 03/28/25 03/28/25 03/29/25 15:00 23:00 07:00 Intake Total 300 ml 800 ml 300 ml Output Total 250 ml 250 ml Balance 300 ml 550 ml 50 ml medications Current Medications Medications Dose Ordered Sig/Pedro Route Start Time Stop Time Status Last Admin Dose Admin Nitroglycerin 0.4 mg Q5MINP PRN SL 03/26/25 07:45 Morphine Sulfate 2 mg Q30M PRN IV 03/26/25 07:45 Ceftriaxone Sodium 50 ml @ 100 mls/hr DAILY@09 IV 03/26/25 09:00 03/28/25 08:19 100 MLS/HR Acetaminophen 650 mg Q4HPRN PRN PO 03/26/25 08:00 Ondansetron HCl 4 mg Q4HPRN PRN IV 03/26/25 10:45 Pantoprazole Sodium 50 ml @ 10 mls/hr Q5H IV 03/26/25 13:30 03/29/25 06:48 10 MLS/HR Methadone HCl 5 mg BID PO 03/26/25 17:00 03/28/25 22:14 5 MG Aspirin 81 mg DAILY PO 03/28/25 10:00 03/28/25 09:57 81 MG Ipratropium [place] 0.5 mg Q4HWA NEB 03/28/25 14:00 03/29/25 06:31 0.5 MG Albuterol 2.5 mg Q4HWA NEB 03/28/25 14:00 03/29/25 06:31 2.5 MG Enteral Nutritional Formula 240 ml TIDWM PO 03/28/25 18:00 Doxycycline Hyclate 100 ml @ 50 mls/hr Q12H IV 03/28/25 15:45 03/29/25 03:32 50 MLS/HR objective General Appearance: alert, no distress HEENT: EOMI, PERRLA, normal external inspect of ears, no icterus, no nasal drainage Neck: no carotid bruit, no jugular venous distention (JVD), no lymphadenopathy Chest: normal thorax Respiratory: clear to auscultation, normal air movement Cardiovascular: regular rate and rhythm, no diastolic murmur, no jugular venous distention (JVD), no rub, no systolic murmur Abdominal: soft, no hepatomegaly, no mass, no splenomegaly, no tenderness Genitourinary: grossly normal external Musculoskeletal: no joint tenderness, no swelling Extremities: normal pulses, no calf tenderness, no clubbing, no cyanosis, no edema Skin: no bruising, no jaundice, no rash Neurological: alert, No focal deficit laboratory and microbiology Laboratory Tests 03/28/25 05:20 Test 03/28/25 05:20 Range/Units Serum Glucose 93 74-106 mg/dL Problem List 1. Syncope likely secondary to blood loss anemia cardiac consult, 2. Hepatic metastatic disease Monitor, oncology consult, GI consult 3. colorectal cancer metastasis to liver and lungs Monitor 4. Elevated troponin Monitor, cardiology consult, PPI, monitor EKG 5. Elevated liver enzymes Monitor, radiology consult for liver biopsy 6. hx of CVA Monitor 7. Coagulopathy 8. blood loss anemia transfuse for hgb below 7 9. sepsis likely from PNA gram negative or positive IV abx 10. moderate protein deficiency monitor 11. hyponatremia 12. acute metabolic encephalopathy monitor neuro status 13. GI bleed likely upper GI consult, PPI 14. Non-STEMI likely type 2 Cardiac consult Assessment/Plan Subjective: Patient is not awake or alert. Objective: Patient is very confused and lethargic today. Rapid response was called. Patient has a history of colorectal cancer with metastasis to liver. She has a cystic lesion to her pancreas and masses in her pelvic cavity. I did discuss plan of care at length with patient's son. Patient is now a DNR and DNI. Patient was started on IV fluids due to inability to eat. Plan: marketing services rep consult. Family is agreeable for hospice. Possible transition to comfort measures while in hospital. Dietary Evaluation Review Comments: 1. Add Ensure Clear TID plus prostat BID for protein-josé luis supplements when she is on clear liquid. 2. Add ensure EnLive BID supplements when pt upgraded to diet 3. Low chol and Low LDL, consider d/c lipitor and a different way to treat high TG Expected Outcomes/Goals: Maintain Wt. Imprved nutrition status Plan discussed with: Patient, Other CC Plasma Assessment Blood Product Administration S: [id number] JUDY JACK NP Mar 29, 2025 08:54
[2025-03-29] MEDS ORDERED: IOHEXOL 350 MG/ML 100ML IJ ONE (10:13)
[2025-03-29 10:24] LABS: Hemoglobin 10.6 g/dL (12.2-16.2); Mean Corpuscular Hgb Conc. 33.1 g/dL (32.0-36.0); Red Blood Cells 3.52 10^6/uL (4.0-5.20)
[2025-03-29 10:26] LABS: Mean Corpuscular Hemoglobin 30.1 pg (28.0-32.0); Mean Corpuscular Volume 90.9 fL (80.0-100.0); Platelet Count (auto) 155 10^3/uL (140-450); Red Cell Distribution Width 17.7 % (11.8-14.3)
[2025-03-29 10:29] LABS: White Blood Cell 34.9 10^3/uL (4.4-10.8)
[2025-03-29 10:30] LABS: Basophils % (manual) 0 (0.0-2.0); Blast Cells 0; Metamyelocytes % 0; Myelocytes % 0; Promyelocytes % 0; Reactive Lymphocytes 0
[2025-03-29 10:40] LABS: Alanine Aminotransferase 34 U/L (7-40); Anion Gap 13 (5-15); Blood Urea Nitrogen 22 mg/dL (9-23); Carbon Dioxide 22 mmol/L (20-31); Potassium 4.6 mmol/L (3.5-5.1)
[2025-03-29 10:41] LABS: Chloride 96 mmol/L (98-107); Glucose 108 mg/dL (74-106); Sodium 131 mmol/L (136-145)
[2025-03-29 10:42] LABS: Albumin 2.7 g/dL (3.2-4.8); Alkaline Phosphatase 792 U/L (46-116); Aspartate Aminotransferase 68 U/L (13-40); Calcium 8.6 mg/dL (8.7-10.4); Total Protein 4.7 g/dL (5.7-8.2)
[2025-03-29] MEDS ORDERED: VANCOMYCIN PER PHARMACY 0 MG IV SCH (10:45)
[2025-03-29] MEDS: MEROPENEM 1GM IVPB 50 ML IV ONE (11:34)
--- NOTE | 2025-03-29 11:35 | DVH ---
CTA Chest with intravenous contrast INDICATION: r/o pe COMPARISON: None TECHNIQUE: Multidetector spiral CTA of the chest was performed of the chest with intravenous contrast . PULMONARY ANGIOGRAPHY PROTOCOL was utilized using a bolus-tracking technique centered on the main p ulmonary artery. Axial, coronal and sagittal multiplanar and MIP reformats were performed. CONTRAST: Type of contrast: Omni 350 Contrast injected: 100 ml Radiation dose : Chest: CTDI volume is 8.88 mGy. Dose-length product is 370.6 mGy*cm The dose indicators for CT are the volume computed Tomography (CT) dose Index (CTDIvol) and the dose Length product (DLP), and are measured in units of mGy and mGy-cm, respectively. These indicators are not patient dose, but values generated from the CT scanner acquisition factors. The report includes radiation exposure data for exposures received during this examination. Findings: Limited by significant motion artifact. Pulmonary artery: No large central or large segmental pulmonary embolism. Lower neck: Normal thyroid. Lungs: Diffuse patchy nodular consolidation in both lungs. Heart/Vascular Structures: Normal heart size. No pericardial effusion. Lymph Nodes: Mediastinal and hilar lymphadenopathy. Pleura: Moderate bilateral pleural effusions. Musculoskeletal: No acute osseous abnormality. Soft tissues: Normal. Upper abdomen: Multiple hypoenhancing liver lesions concerning for metastatic disease, largest measur ing up to 65 mm. IMPRESSION: 1. Limited by significant motion artifact. No large central pulmonary embolism. Small segmental and s ubsegmental pulmonary emboli are not excluded. If concern persists consider follow-up exam. 2. Diffuse patchy nodular consolidation in both lungs. Mediastinal and hilar lymphadenopathy. Bilat eral pleural effusions. Multiple hypodense liver masses. Findings are concerning for malignant disea se. Consider further evaluation with MRI of the abdomen with contrast. Superimposed infectious / inf lammatory process is not excluded. Clinical correlation and continued follow-up is recommended. Cons ider further evaluation with PET-CT. HS:Y
[2025-03-29] MEDS: LABETALOL HCL 20 MG/4 ML VL IV ONE ×2 (11:45→12:06)
[2025-03-29 11:46] LABS: Band Neutrophils % (manual) 1; Eosinophils % (manual) 2 (0-7); Lymphocytes % (manual) 2 (10.0-50.0); Monocytes % (manual) 5 (0-12); Platelet Estimate Adequate
--- NOTE | 2025-03-29 11:53 | DVH ---
EXAM: XY CHEST PORTABLE Indication: worsening condition Technique: Single frontal view of the chest was obtained Comparison: XY CHEST PORTABLE on DOS: 03/26/25, XY CHEST PORTABLE on DOS: 03/08/25 FINDINGS: Lines and Tubes: None Lungs: Worsening multifocal consolidative opacities. Pleura: No effusion. No pneumothorax. Cardiomediastinal contours: Unremarkable Bones: No acute osseous abnormality. IMPRESSION: Worsening multifocal consolidative opacities compared to prior exam.
[2025-03-29] MEDS: MORPHINE SULFATE INJ 2 MG/ml SYRG ONE (12:06)
[2025-03-29] MEDS: D5W/SOD CHL 0.45% 1,000 ML IV SCH (12:45)
[2025-03-29] MEDS: METOPROLOL TARTRATE 25 MG TAB PO SCH (13:00)
[2025-03-29] MEDS: VANCOMYCIN 1GM/200ML PM 200 ML IV ONE (13:05)
--- NOTE | 2025-03-29 13:32 | ECG ---
[facility] Test Date: 2025-03-29 Test Time: 11:50:33 Pat Name: SERENE GRIFFIN Department: Respiratoy Room: 0205T A Gender: F Plans Examiner: PILO RICHARDS : 1960 Requested By: JUDY JACK Order Number: [id number] Reading MD: Armen Tracey Measurements Intervals [place] Rate: 134 P: 70 NE: 88 QRS: -18 QRSD: 93 T: 74 QT: 313 QTc: 468 Interpretive Statements Sinus tachycardia Borderline left axis deviation Borderline low voltage, extremity leads RSR' in V1 or V2, probably normal variant ST depression, probably rate related Electronically Signed On 03-30-2025 15:53:03 PDT by Armen Tracey Please click the below link to view image of tracing.
--- NOTE | 2025-03-29 15:31 | RESUS ---
CODE ASSIST ASSESSSMENT Initial Information Code Assist Date: Mar 29, 2025 Code Assist Time: 11:41 Location of Arrest: Central Room # 205 Provider Name Senior Ui Ux Designer Sandra Beltran Time Notified: 11:45 Time PMD returned call: 11:45 Crash Cart Opened and Supplies: No Situation Staff concerned/worried, speci: HR >130, SaO2 <90, RR >28, Change LOC Situation comment: Patient is active GI bleed with extensive medical hx including CVA and metastatic CA. Per family and primary RN, patient has become increasingly confused and lethargic. RR has increased and HR has also significantly increased 120-130bpm. Initially thought to be hypertensive, rapid response initiated. After bp cuff adjustment and repeated measurements, BP noted to not require medical intervention. Assessment Temperature (Fahrenheit): 97.7 Blood Pressure Systolic: 139 Blood Pressure Diastolic: 84 Respiratory Rate: 28 O2 Sat by Pulse Oximetry: 92 Assessment comment: Dr Lazo discussed code status with patient's son and at bedside. Family requesting for DNR/DNI. Code status documentation completed and placed in patient chart. JASBIR Beltran made aware via telephone. Outcome Outcome: Other Team Members Team Members Dr Clifton Chavez ICU Resource RN Jasmina ICU Charge Natalia RN Roberto Carlos eMrritt Date of Service: Mar 29, 2025 Billing Provider: NED LAZO MD Common Visit Codes: CONSULT ONLY Secondary Visit Codes: 23531-[id number] CARE PLAN 30 MINUTES Shaina Person Mar 29, 2025 15:31 NED LAZO MD Mar 30, 2025 09:32
[2025-03-29] MEDS: MORPHINE SULFATE INJ 2 MG/ml SYRG IV PRN (16:43)
[2025-03-29] MEDS: MEROPENEM 1GM IVPB 50 ML IV SCH (18:21)
--- NOTE | 2025-03-29 21:19 | DVHPN2 ---
Progress Note - Dictate Date Seen: Mar 29, 2025 Medical Necessity Reason Pt with a Central, PICC or Fol: No Subjective Patient seen at bedside, Clinical condition deteriorating Patient with active GI bleed with extensive medical hx including CVA and metastatic poorly differentiated rectal CA. Per family and primary RN, patient has become increasingly confused and lethargic. RR has increased and HR has also significantly increased 120-130bpm. Initially thought to be hypertensive, rapid response initiated. After bp cuff adjustment and repeated measurements, BP noted to not require medical intervention. Noted to be tachypneic with some agonal bleeding vital signs Vital Sign Date Time Temp Pulse Resp B/P (MAP) Pulse Ox O2 Delivery O2 Flow Rate FiO2 03/29/25 17:13 117 24 100/63 03/29/25 17:00 98.2 92 98.2 03/29/25 14:35 Nasal Cannula* 4 36 Total Intake and Output 03/28/25 03/28/25 03/29/25 15:00 23:00 07:00 Intake Total 300 ml 800 ml 300 ml Output Total 250 ml 250 ml Balance 300 ml 550 ml 50 ml medications Current Medications Medications Dose Ordered Sig/Pedro Route Start Time Stop Time Status Last Admin Dose Admin Nitroglycerin 0.4 mg Q5MINP PRN SL 03/26/25 07:45 Morphine Sulfate 2 mg Q30M PRN IV 03/26/25 07:45 Acetaminophen 650 mg Q4HPRN PRN PO 03/26/25 08:00 Ondansetron HCl 4 mg Q4HPRN PRN IV 03/26/25 10:45 Pantoprazole Sodium 50 ml @ 10 mls/hr Q5H IV 03/26/25 13:30 03/29/25 18:21 10 MLS/HR Methadone HCl 5 mg BID PO 03/26/25 17:00 03/28/25 22:14 5 MG Aspirin 81 mg DAILY PO 03/28/25 10:00 03/28/25 09:57 81 MG Ipratropium [place] 0.5 mg Q4HWA NEB 03/28/25 14:00 03/29/25 09:16 0.5 MG Albuterol 2.5 mg Q4HWA NEB 03/28/25 14:00 03/29/25 09:16 2.5 MG Enteral Nutritional Formula 240 ml TIDWM PO 03/28/25 18:00 Meropenem 50 ml @ 17 mls/hr Q8H IV 03/29/25 18:00 03/29/25 18:21 17 MLS/HR Vancomycin HCl 0 ml @ 0 mls/hr UD IV 03/29/25 10:45 Morphine Sulfate 2 mg Q4HPRN PRN IV 03/29/25 11:45 03/29/25 16:43 2 MG Dextrose/Sodium Chloride 1,000 ml @ 50 mls/hr Q20H IV 03/29/25 12:45 03/29/25 12:45 50 MLS/HR Lorazepam 1 mg Q4HP PRN IV 03/29/25 13:00 Metoprolol Tartrate 25 mg BID PO 03/29/25 13:00 Vancomycin HCl 100 ml @ 100 mls/hr Q8H IV 03/29/25 23:00 objective General Appearance: Alert, Oriented X3, Cooperative, No acute distress Respiratory: Clear to auscultation, Normal air movement Cardiovascular: Regular rate, Normal S1, Normal S2 Abdominal: Normal bowel sounds, soft nontender extremities show some unilateral weakness laboratory and microbiology Laboratory Tests 03/29/25 10:10 Test 03/29/25 10:10 Range/Units Serum Glucose 108 H 74-106 mg/dL Problems(with codes): (1) Elevated troponin (2) Elevated CA 19-9 level (3) Metastatic neoplasm (4) CVA (cerebral vascular accident) (5) Rectal mass (6) Colorectal carcinoma (7) GI bleed Prognosis Plan Patient has been made DNR and family is discussing hospice Overall her prognosis is very poor and condition critical; family is aware Continue comfort measures and supportive care Dietary Evaluation Review Comments: 1. Add Ensure Clear TID plus prostat BID for protein-josé luis supplements when she is on clear liquid. 2. Add ensure EnLive BID supplements when pt upgraded to diet 3. Low chol and Low LDL, consider d/c lipitor and a different way to treat high TG Expected Outcomes/Goals: Maintain Wt. Imprved nutrition status Plan discussed with: Spouse, Son, Other (Nurse Roberto Carlos) CC Plasma Assessment Blood Product Administration S: [id number] ROBERT RAMIREZ MD Mar 29, 2025 21:19
[2025-03-29] MEDS: LORazepam 2MG/ML-1ML VIAL IV PRN (21:34)
[2025-03-29] MEDS: VANCOMYCIN 750MG KIT 100 ML IV SCH (22:47)
[2025-03-30] VITALS (11 sets, daily range): BP systolic 121–145; BP diastolic 49–86; PULSE 126–132; RESP 20–22; TEMP 97.1–99.3; O2SAT 87–95
--- NOTE | 2025-03-30 00:44 | DVHEEG2 ---
Neurology EEG Procedural Note Procedural Note EXAM DATE: 03/25/2025 REFERRING DOCTOR: Dr. Norris TECHNIQUE: Eighteen channels of EEG, 2 channels of EOG, and 1 channel of EKG were recorded using the International 10/20 system. CLINICAL DATA: The patient was referred for an EEG evaluation for the evidence of seizure disorder. MEDICATIONS: See the chart BACKGROUND ACTIVITY: The EEG showed diffuse low amplitude theta activity symmetrically over both hemispheres that was reactive to external stimuli. ACTIVATION: Hyperventilation: Not done Photic Stimulation: Not downe Sleep: Not seen IMPRESSION: This is a mildly abnormal EEG, this EEG is seen in mild cerebral dysfunction due to metabolic/hypoxic encephalopathy or medication effect, please correlate clinically. The EKG channel showed a regular heart rate of 108/[place] [address] JUANITO NORRIS MD Mar 30, 2025 00:44
[2025-03-30 06:09] LABS: Mean Corpuscular Volume 90.2 fL (80.0-100.0)
[2025-03-30 06:12] LABS: Hematocrit 32.1 % (36.0-46.0); Hemoglobin 10.7 g/dL (12.2-16.2); Mean Corpuscular Hgb Conc. 33.3 g/dL (32.0-36.0); Platelet Count (auto) 182 10^3/uL (140-450); Red Blood Cells 3.56 10^6/uL (4.0-5.20); Red Cell Distribution Width 18.1 % (11.8-14.3)
[2025-03-30 06:16] LABS: White Blood Cell 40.4 10^3/uL (4.4-10.8)
[2025-03-30 06:17] LABS: Basophils % (manual) 0 (0.0-2.0); Blast Cells 0; Eosinophils % (manual) 0 (0-7); Metamyelocytes % 0; Myelocytes % 0; Promyelocytes % 0; Reactive Lymphocytes 0
--- NOTE | 2025-03-30 06:29 | DVHINCON2 ---
Date of service: Mar 29, 2025 Family History: Asthma G8 MOTHER Osteoporosis G8 FATHER Allergies: Coded Allergies: NO KNOWN ALLERGIES (Unverified , 03/08/25) Home Meds Active Scripts Morphine Sulfate (Ms Contin) 30 Mg Tab, 1 TAB PO DAILY for 30 Days, #30 TAB Prov:JUDY JACK MACHINE ADJUSTER 03/16/25 Naloxone HCl (Narcan) 4 Mg/0.1 Ml Spr, 4 MG NA UD for 30 Days, #1 SPRAY Prov:JUDY JACK MACHINE ADJUSTER 03/15/25 Senna (Senokot) 8.6 Mg Tab, 1 TAB PO BID for 30 Days, #60 TAB Prov:JUDY JACK MACHINE ADJUSTER 03/15/25 Ondansetron Odt 4MG Tab (ZOFRAN PO) 4 Mg Tb, 4 MG PO Q6HP PRN for 30 Days, #120 TAB ODT TAB-DISSOLVE IN MOUTH, THEN SWALLOW Prov:JUDY JACK MACHINE ADJUSTER 03/15/25 Apixaban Base (ELIQUIS) 5 Mg Tab, 5 MG PO BID for 30 Days, #60 TAB Prov:JUDY JACK MACHINE ADJUSTER 03/15/25 Pantoprazole Sodium Sesquihydr (Protonix) 40 Mg Tab, 40 MG PO DAILY, #30 TAB Prov:JUDY JACK MACHINE ADJUSTER 03/15/25 Atorvastatin Calcium (ATORVASTATIN CALCIUM) 20 Mg Tab, 20 MG PO HS for 30 Days, #30 TAB Prov:JUDY JACK MACHINE ADJUSTER 03/15/25 Current Medications Current Medications Medications (Trade) Dose Ordered Sig/Pedro Route PRN Reason Start Time Stop Time Status Last Admin Meropenem 50 ml @ 17 mls/hr Q8H IV 03/29/25 18:00 03/30/25 01:46 Vancomycin HCl 0 ml @ 0 mls/hr UD IV 03/29/25 10:45 Morphine Sulfate 2 mg Q4HPRN PRN IV SEVERE PAIN (7-10 PAIN SCALE) 03/29/25 11:45 03/29/25 16:43 Dextrose/Sodium Chloride 1,000 ml @ 50 mls/hr Q20H IV 03/29/25 12:45 03/29/25 12:45 Lorazepam (Ativan Inj) 1 mg Q4HP PRN IV ANXIETY 03/29/25 13:00 03/30/25 01:53 Metoprolol Tartrate (Lopressor Tablet) 25 mg BID PO 03/29/25 13:00 Vancomycin HCl 100 ml @ 100 mls/hr Q8H IV 03/29/25 23:00 03/29/25 22:47 Vital Signs Vital Signs Date Time Temp Pulse Resp B/P (MAP) Pulse Ox O2 Delivery O2 Flow Rate FiO2 03/30/25 05:34 94 Nasal Cannula* 4 36 03/30/25 01:00 98.4 132 21 133/67 (89) 98.4 Labs/Diagnostic Data Labs Test 03/30/25 05:11 03/29/25 10:10 03/28/25 05:20 03/27/25 04:27 Range/Units Differential Total Cells Counted 100.0 100 Neutrophils % (Manual) 90 H 37.0-80.0 Band Neutrophils % (Manual) 1 Lymphocytes % (Manual) 2 L 10.0-50.0 Monocytes % (Manual) 5 0-12 Eosinophils % (Manual) 2 0-7 Basophils % (Manual) 0 0.0-2.0 Metamyelocytes % (manual) 0 Myelocytes % (Manual) 0 Promyelocytes % (Manual) 0 Blast Cells % (Manual) 0 Reactive Lymphocytes 0 Platelet Estimate Adequate Sodium Level 131 L 136-145 mmol/L Potassium Level 4.6 3.5-5.1 mmol/L Chloride Level 96 L 98-107 mmol/L Carbon Dioxide Level 22 20-31 mmol/L Anion Gap 13 5-15 Blood Urea Nitrogen 22 9-23 mg/dL BUN/Creatinine Ratio 50.0 H 10.0-20.0 Serum Glucose 108 H 74-106 mg/dL Calcium Level 8.6 L 8.7-10.4 mg/dL Total Bilirubin 1.0 0.2-1.0 mg/dL Aspartate Amino Transferase (AST) 68 H 13-40 U/L Alanine Aminotransferase (ALT) 34 7-40 U/L Alkaline Phosphatase 792 H 46-116 U/L Total Protein 4.7 L 5.7-8.2 g/dL Albumin 2.7 L 3.2-4.8 g/dL Eosinophils (%) (Auto) 8.5 H 0.0-7.0 % Eosinophils # (Auto) 1.9 H 0-0.8 10 ^3/uL Basophils # (Auto) 0.1 0-0.2 10 ^3/uL Nucleated Red Blood Cells 0.2 % Triglycerides Level 166 H < 150 mg/dL Cholesterol Level 84 < 200 mg/dL LDL Cholesterol 27 < 100 mg/dL HDL Cholesterol 25 L 40-59 mg/dL Magnesium Level 2.0 1.6-2.6 mg/dL Test 03/26/25 21:51 03/26/25 13:36 03/26/25 03:05 03/26/25 02:53 Range/Units Troponin I High Sensitivity 784 *H </=34 ng/L D-Dimer, Quantitative 1.77 H 0.0-0.49 mg/L FEU B-Type Natriuretic Peptide 50.11 0-100 pg/mL Thyroid Stimulating Hormone (TSH) 0.53 L 0.55-4.78 uIU/mL Urine Color Yellow Yellow Urine Clarity Clear Clear Urine pH 6.0 5.0-9.0 Urine Specific [place] 1.025 1.001-1.035 Urine Protein Negative Negative Urine Ketones Negative Negative Urine Blood Negative Negative /uL Urine Nitrite Negative Negative Urine Bilirubin Negative Negative Urine Urobilinogen 3 H Negative mg/dL Urine Leukocyte Esterase Negative Negative /uL Urine RBC None seen 0 - 4 /hpf Urine Microscopic WBC 4 0-5 /HPF Urine Squamous Epithelial Cells None seen <5 /hpf Urine Bacteria None seen None Seen /hpf Urine Hyaline Casts Many 0 - 2 /lpf Urine Mucus Few None Seen Urine Glucose Normal Normal mg/dL Prothrombin Time 14.9 H 9.3-11.8 sec Prothrombin Time INR 1.46 H 0.9-1.15 Activated Partial Thromboplast Time 30.6 24.5-34.5 SEC Iron Level 44 L 50-170 ug/dL Total Iron Binding Capacity 185 L 250-425 ug/dL Percent Iron Saturation 23.8 15-50 % C-Reactive Protein High Sensitivity 5.92 H <1.0 mg/dL Free Thyroxine (T4) Calculated 1.07 0.89-1.76 ng/dL Microbiology Date/Time Source Procedure Growth Status 03/26/25 20:30 Nose MRSA Screen - Final Complete Plan/Recommendation ASSESSMENT AND PLAN ID Problem List: - Metastatic colon adenocarcinoma (liver, lung, spleen, retroperitoneum, pelvis, uterus involvement) - Acute on chronic multifocal ischemic cerebrovascular disease - Gastrointestinal bleeding (melena/black stools) - Diarrhea, weight loss, poor appetite - Severe leukocytosis - Sepsis, possible hospital-acquired pneumonia - Acute kidney infarcts - Altered mental status, transient loss of consciousness - Immunocompromised Assessment This is a 61-year-old Bengali-speaking female with recently diagnosed metastatic colon adenocarcinoma involving the liver and lungs (confirmed by liver biopsy), now admitted with one week of black stools, diarrhea, weight loss, and poor appetite. She is acutely confused, has had transient loss of consciousness after severe bowel movement, is diaphoretic, and demonstrates altered mental status. She has a history of prior hospitalization one week ago for diagnosis, during which a right liver mass biopsy confirmed colonic adenocarcinoma, and imaging showed widespread metastatic disease. On this admission, the patient is hypotensive (BP 102/59), tachycardic, saturating 98% on 4L nasal cannula, with reported abdominal tenderness and mild distension. She is not able to answer questions reliably. Laboratory evaluation reveals severe leukocytosis (WBC 34.9), hemoglobin 10.6, platelet count 155, ALT 34, AST 68, alkaline phosphatase 792, total bilirubin 1. Imaging demonstrates: - Chest CT: Numerous nodular densities throughout the lungs (consistent with metastases), largest 1.2 cm in RML, likely superimposed pneumonia. - Abdominal CT: Extensive metastatic disease; moderate inflammatory changes, possible pancreatic cysts, bilateral pleural effusions, small bilateral renal infarcts. - Brain Imaging: MRI and CT reveal multifocal, multicompartmental acute ischemia, evolving infarcts, but no acute ICH. - Lower Extremity Doppler: No DVT. - CT Angiography: Diffuse nodular consolidations, hilar/mediastinal lymphadenopathy, multiple hypertensive massesagain, concerning for malignancy. - Bone Scan: No osseous metastases. She meets clinical criteria for sepsis (hypotension, tachycardia, altered mental status, leukocytosis, likely hospital-acquired pneumonia), and is immunocompromised due to extensive metastatic malignancy. Hematology/oncology has assessed the patient as not amenable to chemotherapy; hospice services are pending. Plan: - Continue broad-spectrum antimicrobials: discontinue ceftriaxone, start cefepime and continue vancomycin to empirically cover hospital-acquired/healthcare-associated pneumonia and sepsis, in the context of recent hospitalization and immunocompromised status. - Monitor for clinical response and review blood and sputum cultures when available. - Consider addition of anaerobic coverage (e.g., metronidazole) if evidence of intra-abdominal infection emerges, or per infectious disease identity management consultant, but withhold at present. - Monitor renal function closely given evidence of renal infarcts and ongoing risk of sepsis-associated acute kidney injury. - Monitor neurologic status; ongoing multifocal ischemia likely related to metastatic disease and sepsis. - Hematology/Oncology and ID to continue to follow. - Once hospice care is initiated, plan to withdraw antibiotics in line with comfort care protocols. - If additional biopsies are performed, send for culture to exclude infection- related abscesses as source for recent symptoms. - Supportive care, comfort measures as per patient/family wishes and hospice protocol. Assessment and plan were discussed with the medical team and arrangements for hospice are pending. Plan is subject to change pending incorporation of new incoming information/diagnostics. Updates may be added as addendum at the bottom (OR TOP) of this note. Thank you for the consult. Infectious Disease will continue to follow. Please contact ID for any questions or concerns. Damari Chavez M.D. [facility] Ph: ? Teams text: [email or web address] History: The patient's chart and medications were reviewed in detail, and the patient was seen and examined. History obtained from: chart and observation (patient unable to provide reliable history due to confusion and language barrier). This is a 61-year-old Bengali-speaking female, with newly diagnosed metastatic colon adenocarcinoma (biopsy proven, metastatic to liver, lungs, spleen, retroperitoneum, pelvis, uterus), presenting with one week of black stools (melena), diarrhea, weight loss, and poor appetite. Recent admission for workup of her malignancy noted metastatic disease to liver and lungs with biopsy obtained by Gastroenterology. Patient is acutely confused, diaphoretic, and was reported to have lost consciousness after a severe bowel movement. Altered mentation is ongoing. No infectious disease workup was completed during previous admission. On this admission, infectious disease was consulted for leukocytosis and possible hospital-acquired infection. Review of Systems: A complete 10-system review was not possible due to altered mental status. Pertinent positives and negatives: - CONSTITUTIONAL: Reports weight loss. Denies fevers and chills. - HEENT: Not discussed. - RESPIRATORY: Denies chest pain. - CARDIOVASCULAR: Denies chest pain. No discussion of palpitations. - GASTROINTESTINAL: Reports black stools and diarrhea. - GENITOURINARY: Not discussed. - MUSCULOSKELETAL: Not discussed. - SKIN: Diaphoretic. - NEUROLOGICAL: Confused, altered mental status, history of transient loss of consciousness. - PSYCHIATRIC: Not discussed. Past Medical History: - Metastatic colon adenocarcinoma Past Surgical History: liver biopsy Home Medications: none Allergies: nka Family History: Social History: no smoking, no alcohol, no ivdu. born in [place]. Objective: Vital Signs on Arrival: BP: 102/59 mmHg Pulse: 85 bpm Respiratory rate: 19/min Temperature: 98.6 F Oxygen saturation: 98% on 4L nasal cannula Physical Exam: General: NAD Neck: Supple. No masses. HEENT: PERRL. Normal lids and conjunctiva. Moist mucous membranes. Oropharynx without lesions, exudates or excessive erythema. Normal appearance of the external aspects of the nose and ears. Heart: Regular rhythm, normal rate. No murmur. No lower extremity edema. Lungs: Normal respiratory effort. Clear to auscultation bilaterally. No wheezes. No crackles. Abdomen: Mildly distended, abnormal tenderness. Msk: No digital cyanosis. Normal strength and tone in all 4 limbs Skin: Diaphoretic. Neuro: Confused. Psych: Not able to assess due to confusion. Oriented to person, place, time, and situation: Unable to fully assess. Lines: Not provided in transcript. Diagnostic Studies: Available studies reviewed, significant relevant results summarized below: Pertinent Imaging: - Chest CT: Numerous nodules throughout the lungs (metastases), largest 1.2cm RML, probable superimposed pneumonia, mediastinal/hilar adenopathy. - Abdominal CT: Extensive metastasis (liver, spleen, retroperitoneum, pelvis, uterus), moderate stranding/inflammatory changes, possible proctitis/pancreatic cystic changes, bilateral pleural effusions, suspected small bilateral renal infarcts. - Ultrasound (liver): Biopsy-confirmed colonic adenocarcinoma. - Bone scan: No evidence of bone metastases. - Brain CT/MRI: Multifocal, multicompartmental acute ischemia, no hemorrhagic transformation. - Lower extremity ultrasound: No DVT. - CT angiography: Patchy/nodular consolidation of lungs, mediastinal and hilar adenopathy, bilateral pleural effusions, multiple hypertensive masses. - Chest X-ray: Progressive multifocal consolidation compared to prior. Pertinent Laboratory Studies: - WBC: 34.9 x 10^9/L - Hemoglobin: 10.6 g/dL - Platelets: 155 x 10^9/L - Serum Creatinine/BUN: BUN 22, creatinine not clearly reported. AST: 68 IU/L ALT: 34 IU/L - Alk Phos: 792 IU/L - Total Bilirubin: 1 mg/dL - Blood/Respiratory Cultures: Pending Isolation Precautions: Not provided in transcript. Plan discussed with: Patient DAMARI CHAVEZ MD Mar 30, 2025 06:29
[2025-03-30 06:55] LABS: Band Neutrophils % (manual) 3; Lymphocytes % (manual) 2 (10.0-50.0); Monocytes % (manual) 5 (0-12)
[2025-03-30 06:56] LABS: Platelet Estimate Adequate
--- NOTE | 2025-03-30 07:22 | DVHPN2 ---
Progress Note - Dictate Date Seen: Mar 30, 2025 Medical Necessity Reason Pt with a Central, PICC or Fol: No vital signs Vital Sign Date Time Temp Pulse Resp B/P (MAP) Pulse Ox O2 Delivery O2 Flow Rate FiO2 03/30/25 07:06 130 21 136/86 03/30/25 05:34 94 Nasal Cannula* 4 36 03/30/25 05:00 98.6 98.6 Total Intake and Output 03/29/25 03/29/25 03/30/25 15:00 23:00 07:00 Intake Total 240 ml 290 ml 500 ml Output Total 20 ml 300 ml 700 ml Balance 220 ml -10 ml -200 ml medications Current Medications Medications Dose Ordered Sig/Pedro Route Start Time Stop Time Status Last Admin Dose Admin Nitroglycerin 0.4 mg Q5MINP PRN SL 03/26/25 07:45 Morphine Sulfate 2 mg Q30M PRN IV 03/26/25 07:45 Acetaminophen 650 mg Q4HPRN PRN PO 03/26/25 08:00 Ondansetron HCl 4 mg Q4HPRN PRN IV 03/26/25 10:45 Pantoprazole Sodium 50 ml @ 10 mls/hr Q5H IV 03/26/25 13:30 03/30/25 06:55 10 MLS/HR Methadone HCl 5 mg BID PO 03/26/25 17:00 03/28/25 22:14 5 MG Aspirin 81 mg DAILY PO 03/28/25 10:00 03/28/25 09:57 81 MG Ipratropium [place] 0.5 mg Q4HWA [facility] 03/28/25 14:00 03/29/25 09:16 0.5 MG Albuterol 2.5 mg Q4HWA [facility] 03/28/25 14:00 03/29/25 09:16 2.5 MG Enteral Nutritional Formula 240 ml TIDWM PO 03/28/25 18:00 Vancomycin HCl 0 ml @ 0 mls/hr UD IV 03/29/25 10:45 Morphine Sulfate 2 mg Q4HPRN PRN IV 03/29/25 11:45 03/30/25 07:06 2 MG Dextrose/Sodium Chloride 1,000 ml @ 50 mls/hr Q20H IV 03/29/25 12:45 03/29/25 12:45 50 MLS/HR Lorazepam 1 mg Q4HP PRN IV 03/29/25 13:00 03/30/25 01:53 1 MG Metoprolol Tartrate 25 mg BID PO 03/29/25 13:00 Vancomycin HCl 100 ml @ 100 mls/hr Q8H IV 03/29/25 23:00 03/30/25 06:55 100 MLS/HR Cefepime HCl 50 ml @ 12.5 mls/hr Q8HR IV 03/30/25 14:00 laboratory and microbiology Laboratory Tests 03/30/25 05:11 03/29/25 10:10 Test 03/29/25 10:10 Range/Units Serum Glucose 108 H 74-106 mg/dL Assessment/Plan Patient is a 64-year-old female who was brought to the hospital for generalized weakness and loss of consciousness. Patient is Lao speaking and information was obtained by talking to the son (at bedside). Patient was recently in the hospital and was discharged few weeks back after she was found to have metastatic cancer. As per son, since the patient was at home, she has been having repeated bowel movements daily which have been bloody and black. As per son, the patient became nonresponsive while going to the bathroom and the son decided to call 911. Reportedly EMS found the patient to be hypotensive, tachycardic with low oxygen saturation. In emergency room, the patient was found to have significant anemia and has received blood transfusion. Patient was recently found to have rectal mass with metastatic cancer. In recent admission, the patient was also found to have CVAs. It seems that at the time of discharge, the primary team started the patient on Eliquis for the reported CVAs (reportedly as per suggestion of Neurology). Patient has been on 5 mg Eliquis twice daily at home. Prior to previous admission, the patient was healthy with only past history of occasional back pain. Does have family history of different cancers. In previous admission, the patient was found to have stable mildly increased troponin which was assessed to reflect demand ischemia. Is not known to have any primary cardiac pathology. There is no previous diagnosis of any arrhythmia. Echocardiogram of March 09, 2025 had revealed left ventricular systolic function to be hyperdynamic with no specific valvular disease and normal right-sided pressures. Cardiology is involved for cardiac aspects of care. There has been no report of chest pain. There has been no report of shortness of breath. Pale patient. No JVD. Lungs reveal rhonchi. No crackles. Cardiac: Regular, no thrill/gallop. Abdomen: Soft. Increased bowel sounds. Extremities: Dorsalis pedis is 1+ bilateral with no edema. 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 Previously had flat mildly elevated troponin which was assessed to reflect demand physiology. Echocardiogram of March 09, 2025 had reported ejection fraction of 75%, hyperdynamic LV, trace MR/TR/PI. Right ventricular systolic pressure was 28 mm Hg WBC: 17 - 21.4 - 21.7 - 22.3 - 34.9 - 40.4 Hemoglobin: 7.2 - 10.7 - 10.2 - 10.1 - 9.9 - 10.6 - 10.7 D-dimer: 1.77 Creatinine: 0.51 - 0.46 - 0.40 - 0.44 - 0.61 BUN: 33 - 32 - 25 - 22 Potassium: 3.1 - 3.8 - 3.8 - 4.6 Sodium: 131 - 134 - 135 - 131 CRP: 5.92 Trop (high sensitive): 1094 - 1149 - 784 BNP: 50.11 TSH: 0.53 Chest x-ray reported: IMPRESSION: 1. Stable appearing diffuse bilateral multifocal nodular opacities, predominating within the lung bases. 2. Probable bilateral pleural effusions. Repeat chest xry revealed: IMPRESSION: Worsening multifocal consolidative opacities compared to prior exam. CT of head revealed: IMPRESSION: 1. No acute intracranial hemorrhage or mass effect. 2. New small areas of loss of oconnor-white matter differentiation in the high posterior bilateral parietal lobes more pronounced in the left likely areas of evolving infarct. 3. Known bilateral frontal lobe and cerebellar infarcts seen to better advantage on recent MRI brain. MRI of brain revealed: IMPRESSION: 1. Interval progression of bilateral multifocal multicompartmental acute ischemia with no evidence of hemorrhagic transformation. No intra-axial or extra-axial hemorrhage noted. Abdomen and pelvis CT: Lung bases: Innumerable pulmonary nodules in the lung bases due to metastatic disease. Small bilateral pleural effusions with overlying atelectasis. Liver: Extensive hepatic metastatic disease with numerous lesions throughout the liver. Biliary: No calcified gallstones or biliary ductal dilatation. Spleen: Multiple hypo enhancing lesions in the spleen. Can not exclude metastatic disease. Pancreas: Motion artifact limits evaluation. Moderate pancreatic atrophy. Possible cyst along the anterior aspect of the body of the pancreas measuring up to 1.4 cm, although poorly evaluated due to motion. Adrenal glands: Unremarkable. No mass. Kidneys: No hydronephrosis. Small linear areas of hypo enhancement in the periphery of both kidneys, possible small infarcts. Aorta/Vascular: Minimal atherosclerotic calcification no abdominal aortic aneurysm. Retroperitoneum: Multiple enlarged para-aortic and interaortocaval lymph nodes, of which demonstrate low-density, may be due to necrosis. The largest measure up to 1.6 x 1.4 cm of the para-aortic station 1.4 x 1.3 cm of the interaortocaval station. Peripherally enhancing mass along the deep fibers of the left psoas muscle measuring up to 1.8 cm, suspected metastasis. Additional peripherally enhancing masses are seen in the pelvis, including in the left hemipelvis along the posterior aspect of the left iliopsoas muscle measuring up to 2.9 cm in greatest dimension, along the left side of the uterus measuring up to 3.5 cm, along the posterior aspect of the rectum measuring up to 2.5 cm, and multiple additional metastatic implants and abnormal lymph nodes. Bowel/mesentery: No small bowel obstruction. No free air or free fluid. Appendix is not visualized. There is a catheter in the rectum with associated balloon. There is moderate perirectal stranding. Pelvic organs: Heterogeneous uterus with multiple peripherally enhancing uterine masses visualized, with the largest along the left side of the uterus measuring up to 3.5 cm. Bladder: Dockery catheter extends into the bladder. Gas within the bladder is likely due to Dockery catheter placement. Abdominal wall: Mild diffuse body wall edema / anasarca. Prominent right inguinal lymph node measures up to 1.9 x 1.3 cm, possible lymph node metastasis. Bones: No acute fracture or focal intraosseous lesion. IMPRESSION: 1. Motion limited study. 2. Extensive metastatic disease involving the lungs, liver, possibly the spleen, retroperitoneum, pelvis, uterus, and additional areas as described above. 3. Moderate stranding adjacent to the rectum, likely inflammatory in nature, including proctitis. 4. Cyst along the body of the pancreas, possible pseudocyst or possibly cystic neoplasm.Bilateral pleural 5. Effusions with overlying atelectasis. 6. Suspected small bilateral renal infarcts. 7. Additional findings as detailed above Venous duplex of lower ext revealed: Impression: 1. No right or left femoropopliteal venous thrombosis. CTA of lungs reported: IMPRESSION: 1. Limited by significant motion artifact. No large central pulmonary embolism. Small segmental and subsegmental pulmonary emboli are not excluded. If concern persists consider follow-up exam. 2. Diffuse patchy nodular consolidation in both lungs. Mediastinal and hilar lymphadenopathy. Bilateral pleural effusions. Multiple hypodense liver masses. Findings are concerning for malignant disease. Consider further evaluation with MRI of the abdomen with contrast. Superimposed infectious / inflammatory process is not excluded. Clinical correlation and continued follow-up is recommended. Consider further evaluation with PET-CT. EEG reported: IMPRESSION: This is a mildly abnormal EEG, this EEG is seen in mild cerebral dysfunction due to metabolic/hypoxic encephalopathy or medication effect, please correlate clinically. The EKG channel showed a regular heart rate of 108/min EKG reveals sinus tachycardia with nonspecific ST-T changes Tele reveals sinus tachycardia Echocardiogram revealed: Left ventricle: Left ventricle was normal-sized with normal systolic function. LVEF was 65-70%. There was no gross wall motion abnormality. Right ventricle was normal-sized with normal systolic function. Both atria were normal-sized. Aortic valve was not well visualized. There was mild aortic valve insufficiency. There was no aortic stenosis. There was no mitral regurgitation. There was mild tricuspid regurgitation. Pulmonary valve was not well visualized. IVC was normal-sized with normal respiratory variation. Right ventricular systolic pressure was assessed at 35 mm Hg. There was no pericardial effusion. Patient is a 64-year-old female with advanced metastatic cancer who presented with hypotension. Reportedly has been having GI bleeding for many days. Was on Eliquis as outpatient (as per suggestion of Neurology on previous admission). Clinically the patient is cachectic. Is immunocompromised. Does have leukocytosis and sepsis could have contributed to the clinical picture also. GI bleeding/anemia/sepsis could have been the etiology for loss of consciousness/hypotension. Was found to have abnormal Trop. Presentation is not cardiac. Still, abnormal trop may point to component of non-stemi or Pulmonary Emboli. Recognizing co-morbidities and advanced / metastatic cancer, invasive ischemic work up is not suggested. Patient may have had repeated CVA also. Seen by Neurology and GI. Became septic. Is seen by ID. Encephalopathy Presyncope Hypotension GI bleeding Significant anemia Abnormal Trop Sepsis Metastatic cancer Liver Mets Pulmonary Mets Spleen Mets Retroperitoneal Adenopathy Uterine mass Proctitis Renal Infarcts (bilateral) CVA, acute Immunocompromised Cachectic Septic Cardiac suggestion for management: Manage in tele Follow-up electrolytes and kidney function tests and correct abnormalities (keep potassium above 4 and magnesium above 2) ASA 81 mg daily Management of sepsis as per primary team / ID GI follow up Consider Hematology/Oncology evaluation and follow-up Neurology follow up Considering the patient's significantly advanced metastatic cancer/history of CVA, you may consider hospice Very poor prognosis Further evaluation and management depends on the above and clinical course A total of 55 minutes was spent reviewing the patient record, examining the patient, making a diagnostic and therapeutic plan, discussing this plan with medical personnel, following up on diagnostic studies and following the patient for clinical stability excluding any and all procedures. At least 50% of this time was spent in direct, [id number] contact. Thank you for allowing me to participate in this patient's care. Further recommendations will depend on patient's clinical course. Please do not hesitate to contact me if you have any questions or concerns. This medical document was created using electronic medical record system with [employer] computerized dictation system. Although this document has been carefully reviewed, there may still be some phonetic and typographical errors. These areas are purely typographical due to the imperfection of the software programs, and do not reflect any compromise in the patient's medical care Dietary Evaluation Review Comments: 1. Add Ensure Clear TID plus prostat BID for protein-josé luis supplements when she is on clear liquid. 2. Add ensure EnLive BID supplements when pt upgraded to diet 3. Low chol and Low LDL, consider d/c lipitor and a different way to treat high TG Expected Outcomes/Goals: Maintain Wt. Imprved nutrition status Plan discussed with: Other (nurse) CC Plasma Assessment Blood Product Administration S: [id number] FARIDA MOTT MD Mar 30, 2025 07:22
--- NOTE | 2025-03-30 11:21 | DVHPN2 ---
Progress Note - Dictate Date Seen: Mar 30, 2025 Medical Necessity Reason Pt with a Central, PICC or Fol: No Subjective Ms. 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 At this time, she was awake, oriented to person, place, with reasonable social skills, the history is obtained from her son I have seen and examined the patient, I have talked to her nurse, her son are in the room with her. Dr. Art and I have had a discussion about the patient was situation, prognosis with the family She was worse, she was nonresponsive, with tachycardia Family has decided, and I agree hospice care Urinalysis, 03/26/2025: WBC: 4, urine leukocyte esterase: Negative WBC/HB/PLT/MCV, 03/27/2025: 21. 7/10.2/210/87.4, 03/28/2025: 22.3/9.9/162/87.4 PT/INR/PTT, 03/26/2025: 14.9/1.46/30.6 BUN/CR, 03/26/2025: 33/0.51, 03/27/2025: 32/1.46 TBI/AST/ALT/AP, 03/27/25: 0.8/48/29/543 TG/HDL/LDL/HDL, 03/27/2025: 194/93/35/24, 03/28/2025: 166/84/27/25 TSH, 03/26/25: 0.53 CT head, 03/26/2025: 1. No acute intracranial hemorrhage or mass effect. 2. New small areas of loss of oconnor-white matter differentiation in the high posterior bilateral parietal lobes more pronounced in the left likely areas of evolving infarct. 3. Known bilateral frontal lobe and cerebellar infarcts seen to better advantage on recent MRI brain. Chest CT, 03/09/2025: 1. Numerous nodular densities are seen throughout both lungs suggestive of metastatic disease. The largest nodule measures approximately 1.2 cm in the right middle lobe. There is also probable superimposed pneumonia bilaterally. 2. Mediastinal lymphadenopathy 3. Numerous hypodense masses are also seen throughout the liver CT, abdomen/pelvis, 03/27/2025: 1. Motion limited study. 2. Extensive metastatic disease involving the lungs, liver, possibly the spleen, retroperitoneum, pelvis, uterus, and additional areas as described above. 3. Moderate stranding adjacent to the rectum, likely inflammatory in nature, including proctitis. 4. Cyst along the body of the pancreas, possible pseudocyst or possibly cystic neoplasm.Bilateral pleural 5. Effusions with overlying atelectasis. 6. Suspected small bilateral renal infarcts. MRI head, 03/13/2025: Multifocal areas of diffusion restriction in the right > left cerebellum, right > left cerebrum (parietal, frontal, occipital lobes) consistent with acute infarct. Foci of abnormal susceptibility hypointensity is present along the left parietal lobe could be microhemorrhage. MRI head, 03/27/2025: Interval progression of bilateral multifocal multicompartmental acute ischemia with no evidence of hemorrhagic transformation. No intra-axial or extra-axial hemorrhage noted vital signs Vital Sign Date Time Temp Pulse Resp B/P (MAP) Pulse Ox O2 Delivery O2 Flow Rate FiO2 03/30/25 09:20 95 Nasal Cannula 4.0 03/30/25 09:20 36 03/30/25 09:00 97.1 131 22 126/67 (86) 97.1 Total Intake and Output 03/29/25 03/29/25 03/30/25 15:00 23:00 07:00 Intake Total 240 ml 290 ml 650 ml Output Total 20 ml 300 ml 700 ml Balance 220 ml -10 ml -50 ml medications Current Medications Medications Dose Ordered Sig/Pedro Route Start Time Stop Time Status Last Admin Dose Admin Nitroglycerin 0.4 mg Q5MINP PRN SL 03/26/25 07:45 Morphine Sulfate 2 mg Q30M PRN IV 03/26/25 07:45 Acetaminophen 650 mg Q4HPRN PRN PO 03/26/25 08:00 Ondansetron HCl 4 mg Q4HPRN PRN IV 03/26/25 10:45 Pantoprazole Sodium 50 ml @ 10 mls/hr Q5H IV 03/26/25 13:30 03/30/25 06:55 10 MLS/HR Methadone HCl 5 mg BID PO 03/26/25 17:00 03/28/25 22:14 5 MG Aspirin 81 mg DAILY PO 03/28/25 10:00 03/28/25 09:57 81 MG Ipratropium [place] 0.5 mg Q4HWA NEB 03/28/25 14:00 03/29/25 09:16 0.5 MG Albuterol 2.5 mg Q4HWA NEB 03/28/25 14:00 03/29/25 09:16 2.5 MG Enteral Nutritional Formula 240 ml TIDWM PO 03/28/25 18:00 Vancomycin HCl 0 ml @ 0 mls/hr UD IV 03/29/25 10:45 Morphine Sulfate 2 mg Q4HPRN PRN IV 03/29/25 11:45 03/30/25 07:06 2 MG Dextrose/Sodium Chloride 1,000 ml @ 50 mls/hr Q20H IV 03/29/25 12:45 03/30/25 10:05 50 MLS/HR Lorazepam 1 mg Q4HP PRN IV 03/29/25 13:00 03/30/25 09:57 1 MG Metoprolol Tartrate 25 mg BID PO 03/29/25 13:00 Vancomycin HCl 100 ml @ 100 mls/hr Q8H IV 03/29/25 23:00 03/30/25 06:55 100 MLS/HR Cefepime HCl 50 ml @ 12.5 mls/hr Q8HR IV 03/30/25 14:00 objective General: the patient is well developed and nourished. No acute distress. MENTAL STATUS: Subjective SPEECH, LANGUAGE, HIGHER CORTICAL FUNCTION: Subjective. CRANIAL NERVES: Pupils are equal, round and reactive. Doll's eye. Facial sensation intact in all three divisions bilaterally. Mandibular strength intact. Facial muscles symmetrical and strength intact SENSATION: Responds to painful stimuli MOTOR: Normal tone in the upper and lower extremity. Normal muscle bulk. No fasciculations. No abnormal movements or posturing. No spontaneous movement. REFLEXES: Deep tendon reflexes are symmetrical. No pathological reflexes. CEREBELLAR/COORDINATION: Deferred GAIT/STATION: deferred laboratory and microbiology Laboratory Tests 03/30/25 05:11 03/29/25 10:10 Test 03/29/25 10:10 Range/Units Serum Glucose 108 H 74-106 mg/dL Problem List Multiple strokes confirmed with MRI on 03/13/2025 New multiple strokes according to MRI on 03/27/25 Left hemiparesis secondary to strokes Stroke secondary to malignancy related hypercoagulation GI bleeding, likely secondary to Eliquis Anemia secondary to GI bleeding Colon cancer Assessment/Plan Monitoring Supportive treatment Telemetry Aspirin 81 mg daily Hematology on case GI on case Cardiology on case Consider physical therapy evaluation later Comfort care More recommendation per clinical course This medical document was created using an electronic medical record system with [employer] dictation system. Although this document has been carefully reviewed, there may still be some phonetic and typographical errors. These areas are purely typographical due to imperfections of the software programs, and do not reflect any compromise in the patient's medical care. Prognosis poor Dietary Evaluation Review Comments: 1. Add Ensure Clear TID plus prostat BID for protein-josé luis supplements when she is on clear liquid. 2. Add ensure EnLive BID supplements when pt upgraded to diet 3. Low chol and Low LDL, consider d/c lipitor and a different way to treat high TG Expected Outcomes/Goals: Maintain Wt. Imprved nutrition status Plan discussed with: Spouse, Son, Other Total Time (mins): 35 CC Plasma Assessment Blood Product Administration S: [id number] JUANITO NORRIS MD Mar 30, 2025 11:21
--- NOTE | 2025-03-30 13:11 | DVHDS2 ---
Discharge Summary Date of Admission Mar 26, 2025 at 07:38 Date of Discharge: Mar 30, 2025 Labs/Diagnostic Data: Laboratory Results Test 03/30/25 05:11 03/29/25 10:10 03/28/25 05:20 03/27/25 04:27 White Blood Count 40.4 10^3/uL (4.4-10.8) Red Blood Count 3.56 10^6/uL (4.0-5.20) Hemoglobin 10.7 g/dL (12.2-16.2) Hematocrit 32.1 % (36.0-46.0) Mean Corpuscular Volume 90.2 fL (80.0-100.0) Mean Corpuscular Hemoglobin 30.0 pg (28.0-32.0) Mean Corpuscular Hemoglobin Concent 33.3 g/dL (32.0-36.0) Red Cell Distribution Width 18.1 % (11.8-14.3) Platelet Count 182 10^3/uL (140-450) Mean Platelet Volume 7.6 fL (6.9-10.8) Neutrophils (%) (Auto) % (37.0-80.0) Lymphocytes (%) (Auto) % (10.0-50.0) Monocytes (%) (Auto) % (0.0-12.0) Basophils (%) (Auto) % (0.0-2.0) Neutrophils # (Auto) 10 ^3/uL (1.6-8.6) Lymphocytes # (Auto) 10 ^3/uL (0.4-5.4) Monocytes # (Auto) 10 ^3/uL (0-1.3) Differential Total Cells Counted 100.0 (100) Neutrophils % (Manual) 90 (37.0-80.0) Band Neutrophils % (Manual) 3 Lymphocytes % (Manual) 2 (10.0-50.0) Monocytes % (Manual) 5 (0-12) Eosinophils % (Manual) 0 (0-7) Basophils % (Manual) 0 (0.0-2.0) Metamyelocytes % (manual) 0 Myelocytes % (Manual) 0 Promyelocytes % (Manual) 0 Blast Cells % (Manual) 0 Reactive Lymphocytes 0 Platelet Estimate Adequate Creatinine 0.61 mg/dL (0.550-1.02) Glomerular Filtration Rate Calc 100 mL/min (>90) Sodium Level 131 mmol/L (136-145) Potassium Level 4.6 mmol/L (3.5-5.1) Chloride Level 96 mmol/L (98-107) Carbon Dioxide Level 22 mmol/L (20-31) Anion Gap 13 (5-15) Blood Urea Nitrogen 22 mg/dL (9-23) BUN/Creatinine Ratio 50.0 (10.0-20.0) Serum Glucose 108 mg/dL (74-106) Calcium Level 8.6 mg/dL (8.7-10.4) Total Bilirubin 1.0 mg/dL (0.2-1.0) Aspartate Amino Transferase (AST) 68 U/L (13-40) Alanine Aminotransferase (ALT) 34 U/L (7-40) Alkaline Phosphatase 792 U/L (46-116) Total Protein 4.7 g/dL (5.7-8.2) Albumin 2.7 g/dL (3.2-4.8) Eosinophils (%) (Auto) 8.5 % (0.0-7.0) Eosinophils # (Auto) 1.9 10 ^3/uL (0-0.8) Basophils # (Auto) 0.1 10 ^3/uL (0-0.2) Nucleated Red Blood Cells 0.2 % Triglycerides Level 166 mg/dL (< 150) Cholesterol Level 84 mg/dL (< 200) LDL Cholesterol 27 mg/dL (< 100) HDL Cholesterol 25 mg/dL (40-59) Magnesium Level 2.0 mg/dL (1.6-2.6) Test 03/26/25 21:51 03/26/25 13:36 03/26/25 03:05 03/26/25 02:53 Troponin I High Sensitivity 784 ng/L (</=34) D-Dimer, Quantitative 1.77 mg/L FEU (0.0-0.49) B-Type Natriuretic Peptide 50.11 pg/mL (0-100) Thyroid Stimulating Hormone (TSH) 0.53 uIU/mL (0.55-4.78) Urine Color Yellow (Yellow) Urine Clarity Clear (Clear) Urine pH 6.0 (5.0-9.0) Urine Specific Mitchell 1.025 (1.001-1.035) Urine Protein Negative (Negative) Urine Ketones Negative (Negative) Urine Blood Negative /uL (Negative) Urine Nitrite Negative (Negative) Urine Bilirubin Negative (Negative) Urine Urobilinogen 3 mg/dL (Negative) Urine Leukocyte Esterase Negative /uL (Negative) Urine RBC None seen /hpf (0 - 4) Urine Microscopic WBC 4 /HPF (0-5) Urine Squamous Epithelial Cells None seen /hpf (<5) Urine Bacteria None seen /hpf (None Seen) Urine Hyaline Casts Many /lpf (0 - 2) Urine Mucus Few (None Seen) Urine Glucose Normal mg/dL (Normal) Prothrombin Time 14.9 sec (9.3-11.8) Prothrombin Time INR 1.46 (0.9-1.15) Activated Partial Thromboplast Time 30.6 SEC (24.5-34.5) Iron Level 44 ug/dL (50-170) Total Iron Binding Capacity 185 ug/dL (250-425) Percent Iron Saturation 23.8 % (15-50) C-Reactive Protein High Sensitivity 5.92 mg/dL (<1.0) Free Thyroxine (T4) Calculated 1.07 ng/dL (0.89-1.76) Other Laboratory Tests 03/30/25 05:11 03/29/25 10:10 Brief Hx & Hospital Course: Patient is a 64 year old female complaining of hypotension and GI bleed. Patient speaks [place], however son at bedside translated. Per patient's son patient has been having black stools for several days now. He tried to transfer her to the toilet and patient became unconscious. Patient has been severely malnourished recently after being diagnosed with colon cancer with metastasis to the liver and lung. Patient currently denies any chest pain fever chills. Patient was admitted for GI bleed. Patient was previously admitted two weeks ago. She was found to have a new diagnosis of colorectal cancer with metastases to her lungs, liver, pelvic cavity, and cystic structure to her pancreatic head. Patient developed acute hypoxic respiratory failure, most likely from hospital- acquired pneumonia. Patient with sepsis with severe leukocytosis; WBC count was over 40. Patient was severely immunocompromised. Patients MRI on 03/27 showed multiple CVA; on previous admission on 03/13, MRI also showed multiple acute CVA. Patient was previously started on Eliquis, now returning with GI bleed. Patient has a hypercoagulable state related to cancer. New kidney infarcts also noted. Patient had a change of mentation. Family has remained at bedside. Family decided to change patient to a DNR and DNI and transition to comfort measures. Patient was discharged home with [facility] to continue comfort measures at this time. The patient received proper medical treatment and medications. Vital signs, Imaging and Laboratory Work was monitored. All consults recommendations were followed as provided. There were no complaints or new complaints upon discharge, all questions and concerns were answered. Patient was advised to return to the ER or call 911 if any headaches, dizziness, shortness of breath, chest pain, bleeding, fevers, or worsening of medical condition. Patient/Family was counseled about treatment plan, medications, possible side effects, patientverbalized understanding. All questions were answered to the best of my ability. The patient symptoms improved and they are okay to be DC. Condition at Discharge: Good Final Diagnosis/Problems List COLON CANCER Syncope likely secondary to blood loss anemia Hepatic metastatic disease colorectal cancer metastasis to liver and lungs Elevated troponin Elevated liver enzymes hx of CVA Coagulopathy blood loss anemia sepsis likely from PNA gram negative or positive moderate protein deficiency hyponatremia acute metabolic encephalopathy GI bleed likely upper Non-STEMI likely type 2 Discharge Disposition: Hospice - Home Discharge Instruct/Medications Diet: See Comment Diet comment: NPO Activity: Bed rest Follow Up/Referral: PER HOSPICE Medications: PER HOSPICE Discharge Statement: "Patient was advised to return to the ER or call 911 if any headaches, dizziness, shortness of breath, chest pain, abdominal pain, bleeding, fevers, or worsening of medical condition. Patient was counseled about treatment plan, medications, possible side effects, patientverbalized understanding. All questions were answered to the best of my ability. This discharge took greater then 30 minutes in planning, reviewing documentation, counseling the patient, and discussing with other team members." ASSESSMENT ASSESSMENT Assessment COLON CANCER [employer] Mar 30, 2025 13:11
[2025-03-30] MEDS: CEFEPIME 2GM/50ML NS 50 ML IV SCH (13:47)
--- NOTE | 2025-04-02 14:09 | DVHPN2 ---
Consult Progress Note Date Seen: Mar 30, 2025 Subjective Patient reports: Other (patient is plannign to go to hospice and has been discharged , continues to be altered , having diarrhea , poor appetites , abdominal tenderness) Objective medications Physical Exam: General: NAD Neck: Supple. No masses. HEENT: PERRL. Normal lids and conjunctiva. Moist mucous membranes. Oropharynx without lesions, exudates or excessive erythema. Normal appearance of the external aspects of the nose and ears. Heart: Regular rhythm, normal rate. No murmur. No lower extremity edema. Lungs: Normal respiratory effort. Clear to auscultation bilaterally. No wheezes. No crackles. Abdomen: Mildly distended, abnormal tenderness. Msk: No digital cyanosis. Normal strength and tone in all 4 limbs Skin: Diaphoretic. Neuro: Confused. Psych: Not able to assess due to confusion. Oriented to person, place, time, and situation: Unable to fully assess. laboratory and microbiology Laboratory Tests 03/30/25 05:11 03/29/25 10:10 Test 03/29/25 10:10 Range/Units Serum Glucose 108 H 74-106 mg/dL Problem List/Assessment/Plan Problems(with codes): (1) GI bleed (2) Colorectal carcinoma (3) Rectal mass (4) CVA (cerebral vascular accident) (5) Metastatic neoplasm (6) Elevated CA 19-9 level (7) Elevated troponin Problem List/Assessment/Plan ASSESSMENT AND PLAN ID Problem List: - Metastatic colon adenocarcinoma (liver, lung, spleen, retroperitoneum, pelvis, uterus involvement) - Acute on chronic multifocal ischemic cerebrovascular disease - Gastrointestinal bleeding (melena/black stools) - Diarrhea, weight loss, poor appetite - Severe leukocytosis - Sepsis, possible hospital-acquired pneumonia - Acute kidney infarcts - Altered mental status, transient loss of consciousness - Immunocompromised Assessment This is a 61-year-old Slovenian-speaking female with recently diagnosed metastatic colon adenocarcinoma involving the liver and lungs (confirmed by liver biopsy), now admitted with one week of black stools, diarrhea, weight loss, and poor appetite. She is acutely confused, has had transient loss of consciousness after severe bowel movement, is diaphoretic, and demonstrates altered mental status. She has a history of prior hospitalization one week ago for diagnosis, during which a right liver mass biopsy confirmed colonic adenocarcinoma, and imaging showed widespread metastatic disease. On this admission, the patient is hypotensive (BP 102/59), tachycardic, saturating 98% on 4L nasal cannula, with reported abdominal tenderness and mild distension. She is not able to answer questions reliably. Laboratory evaluation reveals severe leukocytosis (WBC 34.9), hemoglobin 10.6, platelet count 155, ALT 34, AST 68, alkaline phosphatase 792, total bilirubin 1. Imaging demonstrates: - Chest CT: Numerous nodular densities throughout the lungs (consistent with metastases), largest 1.2 cm in RML, likely superimposed pneumonia. - Abdominal CT: Extensive metastatic disease; moderate inflammatory changes, possible pancreatic cysts, bilateral pleural effusions, small bilateral renal infarcts. - Brain Imaging: MRI and CT reveal multifocal, multicompartmental acute ischemia, evolving infarcts, but no acute ICH. - Lower Extremity Doppler: No DVT. - CT Angiography: Diffuse nodular consolidations, hilar/mediastinal lymphadenopathy, multiple hypertensive massesagain, concerning for malignancy. - Bone Scan: No osseous metastases. She meets clinical criteria for sepsis (hypotension, tachycardia, altered mental status, leukocytosis, likely hospital-acquired pneumonia), and is immunocompromised due to extensive metastatic malignancy. Hematology/oncology has assessed the patient as not amenable to chemotherapy; hospice services are pending. 03/30: Tachycardia , whitecount is 40.4 . preliminary cultures are no growth to date . CHest xray showed worsening multifocal consolidated opacities compared to prior exam Plan: - if patient goes to hospice would stop all antibiotic therapy - Continue broad-spectrum antimicrobials: discontinue ceftriaxone, start cefepime and continue vancomycin to empirically cover hospital-acquired/healthcare-associated pneumonia and sepsis, in the context of recent hospitalization and immunocompromised status. - Monitor for clinical response and review blood and sputum cultures when available. - Consider addition of anaerobic coverage (e.g., metronidazole) if evidence of intra-abdominal infection emerges, or per infectious disease edi consultant, but withhold at present. - Monitor renal function closely given evidence of renal infarcts and ongoing risk of sepsis-associated acute kidney injury. - Monitor neurologic status; ongoing multifocal ischemia likely related to metastatic disease and sepsis. - Hematology/Oncology and ID to continue to follow. - Once hospice care is initiated, plan to withdraw antibiotics in line with comfort care protocols. - If additional biopsies are performed, send for culture to exclude infection- related abscesses as source for recent symptoms. - Supportive care, comfort measures as per patient/family wishes and hospice protocol. Plan discussed with: Other Dietary Evaluation Review Comments: 1. Add Ensure Clear TID plus prostat BID for protein-josé luis supplements when she is on clear liquid. 2. Add ensure EnLive BID supplements when pt upgraded to diet 3. Low chol and Low LDL, consider d/c lipitor and a different way to treat high TG Expected Outcomes/Goals: Maintain Wt. Imprved nutrition status CC Plasma Assessment Blood Product Administration S: [id number] DAMARI STARR MD April 02, 2025 14:09
== END 2025-03-30 15:54 | disposition hospice, home (50) | DRG 720 ==
LOC: EDBD 02:35 → EDUNIT# 02:35 → ER 02:35 → OVERFLOW 07:38 → TELE-CENTR 03-27 22:30
PROVIDERS: ADMIT Nurse Practitioner Family; ATTEND Nurse Practitioner Family
PROC: 30233N1 Transfusion of Nonautologous Red Blood Cells into Peripheral Vein, Percutaneous Approach (ICD-10-PCS; principal; 2025-03-26)
DX: A41.50 Gram-negative sepsis, unspecified (principal); I63.9 Cerebral infarction, unspecified; J96.01 Acute respiratory failure with hypoxia; G93.41 Metabolic encephalopathy; J15.69 Pneumonia due to other Gram-negative bacteria; D84.9 Immunodeficiency, unspecified; E44.0 Moderate protein-calorie malnutrition; D68.69 Other thrombophilia; I21.A1 Myocardial infarction type 2; R64 Cachexia; D68.9 Coagulation defect, unspecified; K92.2 Gastrointestinal hemorrhage, unspecified; E87.1 Hypo-osmolality and hyponatremia; G81.94 Hemiplegia, unspecified affecting left nondominant side; J15.9 Unspecified bacterial pneumonia; N28.0 Ischemia and infarction of kidney; C19 Malignant neoplasm of rectosigmoid junction; C78.00 Secondary malignant neoplasm of unspecified lung; Z66 Do not resuscitate; C78.7 Secondary malignant neoplasm of liver and intrahepatic bile duct; D50.0 Iron deficiency anemia secondary to blood loss (chronic); M54.9 Dorsalgia, unspecified; R59.0 Localized enlarged lymph nodes; R59.9 Enlarged lymph nodes, unspecified; E87.6 Hypokalemia; Z80.1 Family history of malignant neoplasm of trachea, bronchus and lung; Z79.01 Long term (current) use of anticoagulants; Z79.899 Other long term (current) drug therapy; Z86.73 Personal history of transient ischemic attack (TIA), and cerebral infarction without residual deficits; Z82.62 Family history of osteoporosis; Z82.5 Family history of asthma and other chronic lower respiratory diseases; Z79.82 Long term (current) use of aspirin; Z51.5 Encounter for palliative care; Z68.25 Body mass index [BMI] 25.0-25.9, adult; Z83.3 Family history of diabetes mellitus; Z85.048 Personal history of other malignant neoplasm of rectum, rectosigmoid junction, and anus
CPT/HCPCS: 36415; 70450; 70551; 71045; 71275; 74177; 80053; 80061; 81001; 82565; 83540; 83550; 83735; 83880; 84439; 84443; 84484; 85007; 85014; 85018; 85025; 85027; 85379; 85610; 85730; 86141; 86850; 86900; 86901; 86920; 87040; 87081; 93005; 93306; 93970; 94640; 95819; 96365; 99291; G0378; J2003; J2185; J2405; J2470